=== PATIENT | male | born 1945 | race Hispanic/Latino ===

== ENCOUNTER 2017-07-19 14:08 | Inpatient (IN) | payer MEDICARE ==
[2017-07-19 15:22] LABS: BASO # 0.1 K/uL (0.0-0.2); BASO % 0.7 % (0.0-2.0); EOS # 0.1 K/uL (0.0-0.7); EOS % 1.5 % (0.0-4.0); HEMOGLOBIN 9.9 g/dL (12.0-18.0); LYMPH # 1.8 K/uL (1.0-4.3); LYMPH % 24.1 % (20.0-40.0); MEAN CELL VOLUME 103.5 fL (80.0-94.0); MEAN CORPUSCULAR HEMOGLOBIN 34.9 pg (27.0-31.0); MEAN CORPUSCULAR HGB CONC 33.7 g/dL (33.0-37.0); MEAN PLATELET VOLUME 8.7 fL (7.2-11.7); MONO # 0.5 K/uL (0.0-0.8); NEUT # 4.9 K/uL (1.8-7.0); NEUT % 66.7 % (50.0-75.0); RBC 2.82 Mil/uL (4.40-5.90); RED CELL DISTRIBUTION WIDTH 15.6 % (11.5-14.5); WHITE BLOOD COUNT 7.3 K/uL (4.8-10.8)
[2017-07-19 15:29] LABS: PROTHROMBIN TIME 11.6 SECONDS (9.7-12.2)
[2017-07-19 15:32] LABS: ALB/GLOB RATIO 1.1 (1.0-2.1); ALBUMIN 4.1 g/dL (3.5-5.0); ALT/SGPT 20 U/L (21-72); AST/SGOT 24 U/L (17-59); BLOOD UREA NITROGEN 34 mg/dL (9-20); CALCIUM 9.1 mg/dl (8.6-10.4); GFR AFRICAN-AMERICAN 45; GFR NON-AFRICAN AMERICAN 37; LIPASE 92 U/L (23-300)
[2017-07-19 15:44] LABS: B-TYPE NATRIURETIC PEPTIDE 681 pg/mL (0-900); CK-MB 0.35 ng/mL (0.0-3.38)
--- NOTE | 2017-07-19 15:48 | C.PDOC ---
History Of Present Illness 72 year old male, with PMHx of HTN, diabetes, and renal insufficiency, came to ER after positive stress test. Pt states he was trying to obtain medical clearance from his PMD for knee replacement surgery, was referred to Dr. Bowers, 3d artist, for cardiac clearance. Pt had (+) stress test and was instructed to report to ER for further evaluation. Pt complains of some leg swelling, right leg more than left. Notes that he takes his Lasix "as needed", last taken 2 days ago. Otherwise, denies chest pain, shortness of breath, fever, chills, or any other associated symptoms at this time. Time Seen by Provider: 07/19/17 14:24 Chief Complaint (Nursing): Chest Pain History Per: Patient History/Exam Limitations: no limitations Onset/Duration Of Symptoms: Days Current Symptoms Are (Timing): Still Present Quality: "Pain" Associated Symptoms: denies: Nausea, Dyspnea, Diaphoresis, Syncope Modifying Factors: None Exacerbating Factors: None Alleviating Factors: None Recent travel outside of the [place]: No Additional History Per: Patient Past Medical History Reviewed: Historical Data, Nursing Documentation, Vital Signs Vital Signs: Last Vital Signs Temp 97.4 F L 07/20/17 23:10 Pulse 66 07/20/17 23:10 Resp 20 07/20/17 23:10 BP 134/70 07/20/17 23:10 Pulse Ox 95 07/20/17 23:10 - Medical History PMH: Diabetes, HTN Surgical History: Appendectomy, Tonsillectomy Family History: States: Unknown Family Hx - Social History Hx Alcohol Use: No Hx Substance Use: No - Immunization History Hx Tetanus Toxoid Vaccination: No Hx Influenza Vaccination: Yes Hx Pneumococcal Vaccination: Yes Review Of Systems Except As Marked, All Systems Reviewed And Found Negative. Constitutional: Negative for: Fever, Chills Cardiovascular: Positive for: Edema (leg swelling). Negative for: Chest Pain, Palpitations Respiratory: Negative for: Cough, Shortness of Breath Gastrointestinal: Negative for: Nausea, Vomiting, Abdominal Pain Neurological: Negative for: Headache, Dizziness Physical Exam - Physical Exam Appears: Non-toxic, No Acute Distress, Other (obese) Skin: Normal Color, Warm, Dry Head: Atraumatic, Normacephalic Eye(s): bilateral: Normal Inspection, EOMI Nose: Normal Oral Mucosa: Moist Neck: Normal ROM, Supple Chest: Symmetrical Cardiovascular: Rhythm Regular Respiratory: Normal Breath Sounds, No Rales, No Rhonchi, No Wheezing Gastrointestinal/Abdominal: Soft, No Tenderness Extremity: Normal ROM, Pedal Edema (bilaterally), Capillary Refill (less than 2 seconds), No Deformity Neurological/Psych: Oriented x3, Normal Speech ED Course And Treatment - Laboratory Results Result Diagrams: 07/20/17 07:48 07/20/17 07:48 ECG: Interpreted By Me, Viewed By Me ECG Rhythm: Sinus Rhythm, R BBB Rate From EC (bpm) O2 Sat by Pulse Oximetry: 98 (RA) Pulse Ox Interpretation: Normal Progress Note: Blood work, EKG, CXR ordered and reviewed. Case discussed with Dr. Smith who requested to admit patient under hospitalist service. Case discussed with hospitalist nuclear radiation engineer, Dr. Cárdenas, who agrees upon plan and admission. Disposition - Disposition Disposition: HOSPITALIZED Disposition Time: 18:00 Condition: STABLE - Clinical Impression Clinical Impression: CAD (coronary artery disease), Positive cardiac stress test, Chronic kidney disease, stage III (moderate) - PA / MIRROR SILVERER / Resident Statement MD/DO has reviewed & agrees with the documentation as recorded. - Scribe Statement The provider has reviewed the documentation as recorded by the Maylinibe Rohit Dias All medical record entries made by the Maylinibangelica were at my direction and personally dictated by me. I have reviewed the chart and agree that the record accurately reflects my personal performance of the history, physical exam, medical decision making, and the department course for this patient. I have also personally directed, reviewed, and agree with the discharge instructions and disposition.
[2017-07-19] MEDS ORDERED: Glucagon Recombinant 1 mg Inj IM PRN (17:23)
[2017-07-19] MEDS ORDERED: Dextrose 50% SYRINGE Inj (50 ml) IV PRN (17:23)
[2017-07-19] MEDS ORDERED: Sodium Chloride 0.45% 1,000 ML IV SCH (17:30)
[2017-07-19] MEDS ORDERED: Metoprolol Succinate 50 mg XL Tab PO ONE (17:54)
[2017-07-19] MEDS: Metoprolol Succinate 25 mg XL Tab PO SCH (18:05)
--- NOTE | 2017-07-19 18:13 | CP.PCM.HP ---
History of Present Illness - History of Present Illness History of Present Illness: Patient is a 72 yo male with a PMHx of HTN, DM-type 2, CKD stage III follows [address] Dr Cintron, chronic right knee pain that has been debilitating and requiring surgery presents today for further evaluation of an outpatient stress test that was positive and needing cardiac cath. Patient has been having worsening right knee pain and needing surgery and thus pre-operative workup included an ekg which showed possible ischemic changes and then underwent a pharmacological stress test which was "abnormal" and thus sent to the ED for a cardiac cath. Patient denies having any history of chest pain or sob. His overall functional status has been poor for the past 1 year attributed to right knee pain. Present on Admission - Present on Admission Any Indicators Present on Admission: Yes History of DVT/PE: No - Notes: Notes:: On oral agents for his diabetes. Taken off of Metformin given his renal function Review of Systems - Cardiovascular Cardiovascular: Leg Edema - Musculoskeletal Musculoskeletal: Other (right knee pain) Past Patient History - Past Medical History & Family History Past Medical History?: Yes Pertinent Family History: HTN DM-2 CKD III obesity - Past Social History Smoking Status: Never Smoked - CARDIAC Hx Hypertension: Yes - RENAL Hx Chronic Kidney Disease: Yes (CKD III) Other/Comment: renal insufficiency - ENDOCRINE/METABOLIC Hx Diabetes Mellitus Type 2: Yes - MUSCULOSKELETAL/RHEUMATOLOGICAL Hx Osteoarthritis: Yes (Right knee osteoarthritis) - PSYCHIATRIC Hx Substance Use: No - SURGICAL HISTORY Hx Appendectomy: Yes Hx Tonsillectomy: Yes Other/Comment: Right knee arthroscopy Meds Allergies/Adverse Reactions: Allergies Allergy/AdvReac Type Severity Reaction Status Date / Time No Known Allergies Allergy Verified 07/19/17 14:32 Physical Exam - Head Exam Head Exam: ATRAUMATIC - Eye Exam Eye Exam: EOMI - ENT Exam ENT Exam: Mucous Membranes Moist - Neck Exam Neck exam: Positive for: Full Rom - Respiratory Exam Respiratory Exam: Clear to Auscultation Bilateral, NORMAL BREATHING PATTERN - Cardiovascular Exam Cardiovascular Exam: REGULAR RHYTHM, RRR, +S1, +S2 - GI/Abdominal Exam GI & Abdominal Exam: Normal Bowel Sounds, Soft. absent: Distended - Rectal Exam Rectal Exam: Deferred - Extremities Exam Extremities exam: Negative for: calf tenderness Additional comments: non-pitting edema of the b/l lower ext - Neurological Exam Neurological exam: Alert, Oriented x3 - Skin Skin Exam: Normal Color Results - Vital Signs Recent Vital Signs: Last Vital Signs Temp 98.1 F 07/19/17 14:29 Pulse 60 07/19/17 18:04 Resp 20 07/19/17 18:04 BP 126/61 07/19/17 18:04 Pulse Ox 99 07/19/17 18:04 - Labs Result Diagrams: 07/19/17 15:11 07/19/17 15:11 Labs: Laboratory Results - last 24 hr 07/19/17 07/19/17 07/19/17 15:11 15:11 15:11 WBC 7.3 RBC 2.82 L Hgb 9.9 L Hct 29.2 L MCV 103.5 H D MCH 34.9 H MCHC 33.7 RDW 15.6 H Plt Count 173 MPV 8.7 Neut % (Auto) 66.7 Lymph % (Auto) 24.1 [place] % (Auto) 7.0 Eos % (Auto) 1.5 Baso % (Auto) 0.7 Neut # (Auto) 4.9 Lymph # (Auto) 1.8 [place] # (Auto) 0.5 Eos # (Auto) 0.1 Baso # (Auto) 0.1 PT 11.6 INR 1.0 APTT 30 Sodium 139 Potassium 4.1 Chloride 104 Carbon Dioxide 21 L Anion Gap 18 BUN 34 H Creatinine 1.8 H Est GFR ( Amer) 45 Est GFR (Non-Af Amer) 37 Random Glucose 153 H Calcium 9.1 Total Bilirubin 1.2 AST 24 ALT 20 L Alkaline Phosphatase 108 Total Creatine Kinase 48 L CK-MB (Mass) 0.35 Troponin I < 0.0120 NT-Pro-B Natriuret Pep 681 Total Protein 7.7 Albumin 4.1 Globulin 3.6 Albumin/Globulin Ratio 1.1 Lipase 92 Assessment & Plan - Assessment and Plan (Free Text) Assessment: Assessment / Plan 1. Abnormal pharmacological stress test no active chest pain ekg reviewed demonstrating q waves trop negative echocardiogram NPO after breakfast 07/20 for [facility] with Dr Smith. will start gentle hydration given his renal impairment 2. Hypertension resume home medication with bblocker - Metoprolol succinate, adjust as necessary 3. DM-2 hold off on oral hypoglycemics sliding scale coverage for now; monitor accuchecks f/u on HbA1c f/u on lipid panel 4. CKD III Attributed to long standing HTN and DM sees Dr Cintron. Consult placed to Dr Mcmullen who is part of the group. 5. Anemia macrocytic type - will f/u on vitamin B12/folate monitor H&H 6. DVT ppx pre-op, encourage early ambulation
--- NOTE | 2017-07-19 18:15 | RAD ---
PROCEDURE: CHEST RADIOGRAPH, 1 VIEW HISTORY: SOB COMPARISON: Comparison is made to 06/02/2017 FINDINGS: LUNGS: No evidence of new infiltrate or consolidation in the lungs PLEURA: No pneumothorax or pleural fluid seen. CARDIOVASCULAR: Normal. OSSEOUS STRUCTURES: No significant abnormalities. VISUALIZED UPPER ABDOMEN: Normal. OTHER FINDINGS: None. IMPRESSION: No active disease.
[2017-07-19] MEDS ORDERED: Sodium Chloride 0.45% 1,000 ML IV ONE (19:24)
[2017-07-19] MEDS ORDERED: SODIUM BICARBONATE IV SCH (19:45)
[2017-07-19] MEDS ORDERED: SODIUM CHLORIDE 0.45% IV SCH (19:45)
[2017-07-19] MEDS ORDERED: Acetylcysteine 20% Inhal Soln (4ml) INH SCH (20:00)
--- NOTE | 2017-07-19 21:38 | CP.PCM.CON ---
History of Present Illness - History of Present Illness History of Present Illness: CC: Crdiac evaluation, exertional dyspnea and abnormal stess test Patient is a 72 yo male with a PMHx of HTN, DM-type 2, CKD stage [address] Cintron, chronic right knee pain that has been debilitating and requiring surgery presents today for further evaluation of an outpatient stress test that was positive and needing cardiac cath. Patient has been having worsening right knee pain and needing surgery and thus pre-operative workup included an ekg which showed possible ischemic changes and then underwent a pharmacological stress test which was "abnormal" and thus sent to the ED for a cardiac cath. Patient denies having any history of chest pain or sob. His overall functional status has been poor for the past 1 year attributed to right knee pain. Present on Admission - Present on Admission Any Indicators Present on Admission: Yes History of DVT/PE: No - Notes: Notes:: On oral agents for his diabetes. Taken off of Metformin given his renal function Review of Systems - Cardiovascular Cardiovascular: Leg Edema - Musculoskeletal Musculoskeletal: Other (right knee pain) Meds Allergies/Adverse Reactions: Allergies Allergy/AdvReac Type Severity Reaction Status Date / Time No Known Allergies Allergy Verified 07/19/17 14:32 Physical Exam - Head Exam Head Exam: ATRAUMATIC - Eye Exam Eye Exam: EOMI - ENT Exam ENT Exam: Mucous Membranes Moist - Neck Exam Neck exam: Positive for: Full Rom - Respiratory Exam Respiratory Exam: Clear to Auscultation Bilateral, NORMAL BREATHING PATTERN - Cardiovascular Exam Cardiovascular Exam: REGULAR RHYTHM, RRR, +S1, +S2 - GI/Abdominal Exam GI & Abdominal Exam: Normal Bowel Sounds, Soft. absent: Distended - Rectal Exam Rectal Exam: Deferred - Extremities Exam Extremities exam: Negative for: calf tenderness Additional comments: non-pitting edema of the b/l lower ext - Neurological Exam Neurological exam: Alert, Oriented x3 - Skin Skin Exam: Normal Color Past Patient History - Past Medical History & Family History Past Medical History?: Yes - Past Social History Smoking Status: Never Smoked - CARDIAC Hx Hypertension: Yes - RENAL Hx Chronic Kidney Disease: Yes (CKD III) Other/Comment: renal insufficiency - ENDOCRINE/METABOLIC Hx Diabetes Mellitus Type 2: Yes - MUSCULOSKELETAL/RHEUMATOLOGICAL Hx Osteoarthritis: Yes (Right knee osteoarthritis) - PSYCHIATRIC Hx Substance Use: No - SURGICAL HISTORY Hx Appendectomy: Yes Hx Tonsillectomy: Yes Other/Comment: Right knee arthroscopy Meds Allergies/Adverse Reactions: Allergies Allergy/AdvReac Type Severity Reaction Status Date / Time No Known Allergies Allergy Verified 07/19/17 14:32 - Medications Medications: Current Medications Dextrose (Dextrose 50% Inj) 0 ml IV STAT PRN; Protocol PRN Reason: Hypoglycemia Protocol Dextrose (Glutose 15) 0 gm PO ONCE PRN; Protocol PRN Reason: Hypoglycemia Protocol Furosemide (Lasix) 20 mg PO DAILY [facility] Glucagon (Glucagen Diagnostic Kit) 0 mg IM STAT PRN; Protocol PRN Reason: Hypoglycemia Protocol Hydralazine HCl (Apresoline) 50 mg PO BID [facility] Last Admin: 07/19/17 18:05 Dose: 50 mg Dextrose (Dextrose 5% In Water 1000 Ml) 1,000 mls @ 0 mls/hr IV .Q0M PRN; Protocol; Per Protocol PRN Reason: Hypoglycemia Protocol Sodium Bicarbonate 50 meq/ (Sodium Chloride) 1,050 mls @ 75 mls/hr IV .Q14H [facility] Last Admin: 07/19/17 20:00 Dose: 75 mls/hr Insulin Human Regular (Novolin R) 0 unit SC ACHS [facility] PRN Reason: Protocol Metoprolol Succinate (Toprol Xl) 25 mg PO BID [facility] Last Admin: 07/19/17 18:05 Dose: 25 mg Rosuvastatin Calcium (Crestor) 5 mg PO [facility] Results - Vital Signs Recent Vital Signs: Last Vital Signs Temp 98.1 F 07/19/17 14:29 Pulse 64 07/19/17 19:38 Resp 18 07/19/17 19:38 BP 124/54 L 07/19/17 19:38 Pulse Ox 95 07/19/17 19:38 - Labs Result Diagrams: 07/19/17 15:11 07/19/17 15:11 Labs: Laboratory Results - last 24 hr 07/19/17 07/19/17 07/19/17 15:11 15:11 15:11 WBC 7.3 RBC 2.82 L Hgb 9.9 L Hct 29.2 L MCV 103.5 H D MCH 34.9 H MCHC 33.7 RDW 15.6 H Plt Count 173 MPV 8.7 Neut % (Auto) 66.7 Lymph % (Auto) 24.1 [place] % (Auto) 7.0 Eos % (Auto) 1.5 Baso % (Auto) 0.7 Neut # (Auto) 4.9 Lymph # (Auto) 1.8 [place] # (Auto) 0.5 Eos # (Auto) 0.1 Baso # (Auto) 0.1 PT 11.6 INR 1.0 APTT 30 Sodium 139 Potassium 4.1 Chloride 104 Carbon Dioxide 21 L Anion Gap 18 BUN 34 H Creatinine 1.8 H Est GFR ( Amer) 45 Est GFR (Non-Af Amer) 37 Random Glucose 153 H Calcium 9.1 Total Bilirubin 1.2 AST 24 ALT 20 L Alkaline Phosphatase 108 Total Creatine Kinase 48 L CK-MB (Mass) 0.35 Troponin I < 0.0120 NT-Pro-B Natriuret Pep 681 Total Protein 7.7 Albumin 4.1 Globulin 3.6 Albumin/Globulin Ratio 1.1 Lipase 92 Assessment & Plan - Assessment and Plan (Free Text) Assessment: 1. Abnormal pharmacological stress test For cath tomorrow Renal eval Hydration 2. Hypertension resume home medication with bblocker - Metoprolol succinate, adjust as necessary 3. DM-2 hold off on oral hypoglycemics sliding scale coverage for now; monitor accuchecks f/u on HbA1c f/u on lipid panel 4. CKD III Attributed to long standing HTN and DM sees Dr Cintron. Consult placed to Dr Mcmullen who is part of the group. 5. Anemia macrocytic type - will f/u on vitamin B12/folate monitor H&H 6. DVT ppx pre-op, encourage early ambulation
[2017-07-19] MEDS: (Novolin R) Insulin Human Regular 100 units/ml vial SC SCH (21:50)
[2017-07-20] MEDS: (Novolin R) Insulin Human Regular 100 units/ml vial SC SCH ×4 (07:21→21:56)
[2017-07-20 07:59] LABS: BASO % 0.6 % (0.0-2.0); EOS # 0.2 K/uL (0.0-0.7); EOS % 2.6 % (0.0-4.0); HEMOGLOBIN 9.3 g/dL (12.0-18.0); LYMPH # 1.8 K/uL (1.0-4.3); MEAN CORPUSCULAR HEMOGLOBIN 34.9 pg (27.0-31.0); MEAN CORPUSCULAR HGB CONC 33.6 g/dL (33.0-37.0); MEAN PLATELET VOLUME 8.8 fL (7.2-11.7); MONO # 0.6 K/uL (0.0-0.8); MONO % 8.5 % (0.0-10.0); NEUT # 4.6 K/uL (1.8-7.0); NEUT % 63.3 % (50.0-75.0); RBC 2.65 Mil/uL (4.40-5.90); RED CELL DISTRIBUTION WIDTH 15.2 % (11.5-14.5); WHITE BLOOD COUNT 7.3 K/uL (4.8-10.8)
[2017-07-20 08:02] LABS: PROTHROMBIN TIME 11.7 SECONDS (9.7-12.2)
[2017-07-20 08:20] LABS: ALB/GLOB RATIO 1.1 (1.0-2.1); ALBUMIN 3.7 g/dL (3.5-5.0); ALT/SGPT 21 U/L (21-72); AST/SGOT 22 U/L (17-59); BLOOD UREA NITROGEN 30 mg/dL (9-20); CALCIUM 9.1 mg/dl (8.6-10.4); GFR AFRICAN-AMERICAN 52; GFR NON-AFRICAN AMERICAN 43; HDL CHOLESTEROL 24 mg/dL (30-70)
[2017-07-20 08:53] LABS: LDL CHOLESTEROL 102 mg/dL (0-129)
[2017-07-20 09:26] LABS: FOLATE > 20.0 ng/mL
--- NOTE | 2017-07-20 09:30 | CP.PCM.PN ---
Addendum entered and electronically signed by Antonio Chapman DO 07/20/17 17:59: Cath results showing triple vessel disease (full report to follow). Recommending CABG. Will have long talk with patient explaining risks/benefits vs stenting. 1/2 NS @ 70cc/hr. Continue ASA, BB, statins Original Note: <Antonio Chapman - Last Filed: 07/20/17 12:32> Subjective - Date & Time of Evaluation Date of Evaluation: 07/20/17 Time of Evaluation: 09:23 - Subjective Subjective: PGY-[address] Smith's Cardiology Service: Pt seen and examined at bedside. Nursing reports no acute events overnight. Pt NPO for cath today. Patient found resting comfortably at bedside. Denies chest pain, SOB, or palpitations. Objective - Vital Signs/Intake and Output Vital Signs (last 24 hours): Temp Pulse Resp BP Pulse Ox 97.4 F L 53 L 20 159/73 H 96 07/20/17 07:33 07/20/17 08:01 07/20/17 07:33 07/20/17 07:33 07/20/17 07:33 - Medications Medications: Current Medications Dextrose (Dextrose 50% Inj) 0 ml IV STAT PRN; Protocol PRN Reason: Hypoglycemia Protocol Dextrose (Glutose 15) 0 gm PO ONCE PRN; Protocol PRN Reason: Hypoglycemia Protocol Furosemide (Lasix) 20 mg PO DAILY [facility] Glucagon (Glucagen Diagnostic Kit) 0 mg IM STAT PRN; Protocol PRN Reason: Hypoglycemia Protocol Hydralazine HCl (Apresoline) 50 mg PO BID [facility] Last Admin: 07/19/17 18:05 Dose: 50 mg Dextrose (Dextrose 5% In Water 1000 Ml) 1,000 mls @ 0 mls/hr IV .Q0M PRN; Protocol; Per Protocol PRN Reason: Hypoglycemia Protocol Sodium Bicarbonate 50 meq/ (Sodium Chloride) 1,050 mls @ 75 mls/hr IV .Q14H [facility] Last Admin: 07/19/17 20:00 Dose: 75 mls/hr Insulin Human Regular (Novolin R) 0 unit SC ACHS [facility] PRN Reason: Protocol Last Admin: 07/20/17 07:21 Dose: Not Given Metoprolol Succinate (Toprol Xl) 25 mg PO BID [facility] Last Admin: 07/19/17 18:05 Dose: 25 mg Rosuvastatin Calcium (Crestor) 5 mg PO HS [facility] Last Admin: 07/19/17 21:47 Dose: 5 mg - Labs Labs: 07/20/17 07:48 07/20/17 07:48 PT 11.7 SECONDS (9.7-12.2) 07/20/17 07:48 INR 1.0 07/20/17 07:48 APTT 30 SECONDS (21-34) 07/20/17 07:48 - Additional Findings Additional findings: - Head Exam Head Exam: ATRAUMATIC - Eye Exam Eye Exam: EOMI - ENT Exam ENT Exam: Mucous Membranes Moist - Neck Exam Neck exam: Positive for: Full Rom - Respiratory Exam Respiratory Exam: Clear to Auscultation Bilateral, NORMAL BREATHING PATTERN - Cardiovascular Exam Cardiovascular Exam: REGULAR RHYTHM, RRR, +S1, +S2 - GI/Abdominal Exam GI & Abdominal Exam: Normal Bowel Sounds, Soft. absent: Distended -morbid obesity - Extremities Exam Extremities exam: Negative for: calf tenderness Additional comments: improving edema of the b/l lower ext - Neurological Exam Neurological exam: Alert, Oriented x3 - Skin Skin Exam: Normal Color Assessment and Plan - Assessment and Plan (Free Text) Plan: Abnormal pharmacological stress test NPO for Cath today EKG (07/19/17): Q waves Troponin negative x 1; BNP 681 TSH/Free t4 WNL f/u ECHO Will hold Lasix Dose this AM, as pt for cardiac cath with AM Cr of 1.6 Hypertension Metoprolol succinate 25mg PO BID Hydralazine 50mg PO BID Lasix 2mg PO Daily Type Two Diabetes Mellitus HbA1c 3.4 hold off on oral hypoglycemics sliding scale coverage for now; monitor accuchecks lipid panel: LDL 102, Chol 145, TG 147 Low HDL HDL 24 Start Lovaza 1gm BID CKD III Attributed to long standing HTN and DM f/u Nephro reccs DVT ppx pre-op, encourage early ambulation Antonio Chapman PGY-2 D/W Dr. Smith <Kendall Smith - Last Filed: 07/20/17 22:37> Objective - Vital Signs/Intake and Output Vital Signs (last 24 hours): Temp Pulse Resp BP Pulse Ox 98.1 F 61 20 162/80 H 96 07/20/17 20:20 07/20/17 20:20 07/20/17 20:20 07/20/17 20:20 07/20/17 20:20 Intake and Output: 07/20/17 07/21/17 18:59 06:59 Intake Total 575 250 Balance 575 250 - Medications Medications: Current Medications Dextrose (Dextrose 50% Inj) 0 ml IV STAT PRN; Protocol PRN Reason: Hypoglycemia Protocol Dextrose (Glutose 15) 0 gm PO ONCE PRN; Protocol PRN Reason: Hypoglycemia Protocol Furosemide (Lasix) 20 mg PO DAILY [facility] Last Admin: 07/20/17 10:15 Dose: Not Given Glucagon (Glucagen Diagnostic Kit) 0 mg IM STAT PRN; Protocol PRN Reason: Hypoglycemia Protocol Hydralazine HCl (Apresoline) 50 mg PO BID [facility] Last Admin: 07/20/17 21:25 Dose: 50 mg Dextrose (Dextrose 5% In Water 1000 Ml) 1,000 mls @ 0 mls/hr IV .Q0M PRN; Protocol; Per Protocol PRN Reason: Hypoglycemia Protocol Sodium Bicarbonate 50 meq/ (Sodium Chloride) 1,050 mls @ 75 mls/hr IV .Q14H [facility] Last Admin: 07/20/17 10:00 Dose: 75 mls/hr Insulin Human Regular (Novolin R) 0 unit SC ACHS [facility] PRN Reason: Protocol Last Admin: 07/20/17 21:56 Dose: Not Given Metoprolol Succinate (Toprol Xl) 25 mg PO BID [facility] Last Admin: 07/20/17 18:00 Dose: Not Given [id number] Ethyl Esters (Lovaza) 1 gm PO BID [facility] Rosuvastatin Calcium (Crestor) 5 mg PO HS [facility] Last Admin: 07/20/17 21:25 Dose: 5 mg - Labs Labs: 07/20/17 07:48 07/20/17 07:48 PT 11.7 SECONDS (9.7-12.2) 07/20/17 07:48 INR 1.0 07/20/17 07:48 APTT 30 SECONDS (21-34) 07/20/17 07:48
[2017-07-20] MEDS: Metoprolol Succinate 25 mg XL Tab PO SCH ×2 (10:15→18:00)
--- NOTE | 2017-07-20 10:37 | CP.PCM.PN ---
<Kelsey Lozano - Last Filed: 07/20/17 15:07> Subjective - Date & Time of Evaluation Date of Evaluation: 07/20/17 Time of Evaluation: 07:00 - Subjective Subjective: PGY1- progress note for Dr. De Guzman Patient seen and examined at bedside and in no acute distress. Patient has no complaints. Patient denies shortness of breath, chest pain, abdominal pain, nausea, vomiting, constipation, or diarrhea. Objective - Vital Signs/Intake and Output Vital Signs (last 24 hours): Temp Pulse Resp BP Pulse Ox 97.4 F L 53 L 20 159/73 H 96 07/20/17 07:33 07/20/17 08:01 07/20/17 07:33 07/20/17 07:33 07/20/17 07:33 - Medications Medications: Current Medications Dextrose (Dextrose 50% Inj) 0 ml IV STAT PRN; Protocol PRN Reason: Hypoglycemia Protocol Dextrose (Glutose 15) 0 gm PO ONCE PRN; Protocol PRN Reason: Hypoglycemia Protocol Furosemide (Lasix) 20 mg PO DAILY [facility] Glucagon (Glucagen Diagnostic Kit) 0 mg IM STAT PRN; Protocol PRN Reason: Hypoglycemia Protocol Hydralazine HCl (Apresoline) 50 mg PO BID [facility] Last Admin: 07/20/17 10:15 Dose: 50 mg Dextrose (Dextrose 5% In Water 1000 Ml) 1,000 mls @ 0 mls/hr IV .Q0M PRN; Protocol; Per Protocol PRN Reason: Hypoglycemia Protocol Sodium Bicarbonate 50 meq/ (Sodium Chloride) 1,050 mls @ 75 mls/hr IV .Q14H [facility] Last Admin: 07/19/17 20:00 Dose: 75 mls/hr Insulin Human Regular (Novolin R) 0 unit SC ACHS [facility] PRN Reason: Protocol Last Admin: 07/20/17 07:21 Dose: Not Given Metoprolol Succinate (Toprol Xl) 25 mg PO BID [facility] Last Admin: 07/20/17 10:15 Dose: 25 mg Rosuvastatin Calcium (Crestor) 5 mg PO HS [facility] Last Admin: 07/19/17 21:47 Dose: 5 mg - Labs Labs: 07/20/17 07:48 07/20/17 07:48 PT 11.7 SECONDS (9.7-12.2) 07/20/17 07:48 INR 1.0 07/20/17 07:48 APTT 30 SECONDS (21-34) 07/20/17 07:48 - Constitutional Appears: Non-toxic, No Acute Distress, Other (obese) - Head Exam Head Exam: ATRAUMATIC, NORMAL INSPECTION, NORMOCEPHALIC - Eye Exam Eye Exam: EOMI, Normal appearance - ENT Exam ENT Exam: Mucous Membranes Moist - Neck Exam Neck Exam: absent: Lymphadenopathy - Respiratory Exam Respiratory Exam: Clear to Ausculation Bilateral, NORMAL BREATHING PATTERN. absent: Rales, Rhonchi, Wheezes, Respiratory Distress, Stridor - Cardiovascular Exam Cardiovascular Exam: REGULAR RHYTHM, RRR, +S1, +S2 - GI/Abdominal Exam GI & Abdominal Exam: Soft, Normal Bowel Sounds. absent: Distended, Tenderness - Extremities Exam Extremities Exam: Full ROM, Normal Inspection. absent: Tenderness - Neurological Exam Neurological Exam: Alert, Awake, Oriented x3 - Psychiatric Exam Psychiatric exam: Normal Affect, Normal Mood - Skin Skin Exam: Intact, Normal Color, Warm Assessment and Plan - Assessment and Plan (Free Text) Assessment: 1. Abnormal pharmacological stress test no active chest pain ekg reviewed demonstrating q waves trop negative echocardiogram cardiac cath today with with Dr Smith. 2. Hypertension resume home medication: Metoprolol succinate 25mg po BID Hydralazine 50mg po BID 3. DM-2 hold oral hypoglycemics sliding scale coverage for now; monitor accuchecks HbA1c: 3.4 lipid panel: Triglycerides-147, Cholesterol-145, LDL-102, HDL-24 TSH and free T4 WNL 4. CKD III Attributed to long standing HTN and DM sees Dr Cintron. Consult placed to Dr Mcmullen who is part of the group. 5. Anemia macrocytic type vit [id number] Folate > 20 monitor H&H 6. Prophylaxis patient on Eliquis, contraindication for SCDs due to CHF Pepcid 20mg po daily <Victor M De Guzman - Last Filed: 07/20/17 15:20> Objective - Vital Signs/Intake and Output Vital Signs (last 24 hours): Temp Pulse Resp BP Pulse Ox 97.4 F L 57 L 20 159/73 H 96 07/20/17 07:33 07/20/17 12:00 07/20/17 07:33 07/20/17 07:33 07/20/17 07:33 - Medications Medications: Current Medications Dextrose (Dextrose 50% Inj) 0 ml IV STAT PRN; Protocol PRN Reason: Hypoglycemia Protocol Dextrose (Glutose 15) 0 gm PO ONCE PRN; Protocol PRN Reason: Hypoglycemia Protocol Furosemide (Lasix) 20 mg PO DAILY [facility] Glucagon (Glucagen Diagnostic Kit) 0 mg IM STAT PRN; Protocol PRN Reason: Hypoglycemia Protocol Hydralazine HCl (Apresoline) 50 mg PO BID [facility] Last Admin: 07/20/17 10:15 Dose: 50 mg Dextrose (Dextrose 5% In Water 1000 Ml) 1,000 mls @ 0 mls/hr IV .Q0M PRN; Protocol; Per Protocol PRN Reason: Hypoglycemia Protocol Sodium Bicarbonate 50 meq/ (Sodium Chloride) 1,050 mls @ 75 mls/hr IV .Q14H [facility] Last Admin: 07/19/17 20:00 Dose: 75 mls/hr Insulin Human Regular (Novolin R) 0 unit SC ACHS [facility] PRN Reason: Protocol Last Admin: 07/20/17 12:09 Dose: Not Given Metoprolol Succinate (Toprol Xl) 25 mg PO BID [facility] Last Admin: 07/20/17 10:15 Dose: 25 mg [id number] Ethyl Esters (Lovaza) 1 gm PO BID [facility] Rosuvastatin Calcium (Crestor) 5 mg PO HS [facility] Last Admin: 07/19/17 21:47 Dose: 5 mg - Labs Labs: 07/20/17 07:48 07/20/17 07:48 PT 11.7 SECONDS (9.7-12.2) 07/20/17 07:48 INR 1.0 07/20/17 07:48 APTT 30 SECONDS (21-34) 07/20/17 07:48 Attending/Attestation - Attestation I have personally seen and examined this patient.: Yes I have fully participated in the care of the patient.: Yes I have reviewed all pertinent clinical information, including history, physical exam and plan: Yes Notes (Text): 07/20/17 15:20 Medical attending: Patient was seen and examined by me, agrees the above note by the medical technologist hematology. The patient had a family member present in the room, the patient was okay with this. As mentioned previously he underwent a nuclear stress test with his personal pole lift operator Dr. Otero which revealed an abnormal stress test. He was therefore sent in today to have cardiac catheterization done. Patient does have CKD, creatine had decreased to 1.6 today. Yesterday he had IVF as well as Acetylceystien prior to cardiac cath He is getting these testing done in preparation for the hopes to have he right knee replacement at some point. When we saw him he had just underwent the echo, he was pending the cardiac cath. He reported that overall he felt normal at rest. He denied having any chest pain. thank you Victor M De Guzman
--- NOTE | 2017-07-20 13:43 | CP.PCM.CON ---
History of Present Illness - History of Present Illness History of Present Illness: Patient is a 72 yo male with a PMHx of HTN, DM-type 2, CKD stage III follows [address] Dr Cintron, chronic right knee pain that has been debilitating and requiring surgery- replacement; presents for further evaluation of an outpatient stress test that was positive and needing cardiac cath. Patient has been having worsening right knee pain and needing surgery and thus pre- operative workup included an ekg which showed possible ischemic changes and then underwent a pharmacological stress test which was "abnormal" and thus sent to the ED for a cardiac cath. Patient denies having any history of chest pain or sob. His overall functional status has been poor for the past 1 year attributed to right knee pain. PSH: AP TONSILLECTOMY RIGHT KNEE ARTHROSCOPY Review of Systems - Constitutional Constitutional: Weight Gain, Weakness - EENT Eyes: absent: As Per HPI, Blind Spots, Blurred Vision, Change in Vision, Decreased Night Vision, Diplopia, Discharge, Dry Eye, Exophthalmos, Floaters, Irritation, Itchy Eyes, Loss of Peripheral Vision, Pain, Photophobia, Requires Corrective Lenses, Sees Flashes, Spots in Vision, Tunnel Vision, Other Visual Disturbances, Loss of Vision, Other Ears: absent: As Per HPI, Decreased Hearing, Ear Discharge, Ear Pain, Tinnitus, Abnormal Hearing, Disequilibrium, Dizziness, Other Nose/Mouth/Throat: absent: As Per HPI, Epistaxis, Nasal Congestion, Nasal Discharge, Nasal Obstruction, Nasal Trauma, Nose Pain, Post Nasal Drip, Sinus Pain, Sinus Pressure, Bleeding Gums, Change in Voice, Dental Pain, Dry Mouth, Dysphagia, Halitosis, Hoarsness, Lip Swelling, Mouth Lesions, Mouth Pain, Odynophagia, Sore Throat, Throat Swelling, Tongue Swelling, Facial Pain, Neck Pain, Neck Mass, Other - Cardiovascular Cardiovascular: Dyspnea on Exertion, Edema - Respiratory Respiratory: Cough, Dyspnea on Exertion - Gastrointestinal Gastrointestinal: absent: As Per HPI, Abdominal Pain, Belching, Bloating, Change in Bowel Habits, Change in Stool Character, Coffee Ground Emesis, Constipation, Cramping, Diarrhea, Dyspepsia, Dysphagia, Early Satiety, Excessive Flatus, Fecal Incontinence, Heartburn, Hematemesis, Hematochezia, Loose Stools, Melena, Nausea, Odynophagia, Temesmus, Vomiting, Other - Genitourinary Genitourinary: Urinary Frequency - Musculoskeletal Musculoskeletal: Arthralgias, Muscle Cramps, Muscle Weakness, Myalgias - Integumentary Integumentary: absent: As Per HPI, Acne, Alopecia, Bleeding Lesions, Change in Hair, Change in Nails, Change in Pigmentation, Changing Lesions, Dry Skin, Erythema, Furuncle, Hirsutism, Lesions, New Lesions, Non-Healing Lesions, Photosensitivity, Pruritus, Rash, Skin Pain, Skin Ulcer, Sores, Striae, Swelling , Unusual Bruising, Wounds, Jaundice, Other - Neurological Neurological: absent: As Per HPI, Abnormal Gait, Abnormal Hearing, Abnormal Movements, Abnormal Speech, Behavioral Changes, Burning Sensations, Confusion, Convulsions, Disequilibrium, Dizziness, Numbness, Focal Weakness, Frequent Falls , Headaches, Lack of Coordination, Loss of Vision, Memory Loss, Paresthesias, Radicular Pain, Restless Legs, Sensory Deficit, Syncope, Tingling, Tremor, Vertigo, Weakness, Other Visual Disturbances, Other Past Patient History - Past Medical History & Family History Past Medical History?: Yes Past Family History: Reviewed and not pertinent - Past Social History Smoking Status: Former Smoker Chewing Tobacco Use: No Cigar Use: No Alcohol: None Drugs: Denies Home Situation {Lives}: With Family - CARDIAC Hx Cardiac Disorders: Yes Hx Hypertension: Yes - PULMONARY Hx Respiratory Disorders: No - NEUROLOGICAL Hx Neurological Disorder: No - HEENT Hx HEENT Problems: No - RENAL Hx Chronic Kidney Disease: Yes (CKD III) Other/Comment: renal insufficiency - ENDOCRINE/METABOLIC Hx Endocrine Disorders: Yes Hx Diabetes Mellitus Type 2: Yes - HEMATOLOGICAL/ONCOLOGICAL Hx Blood Disorders: No - INTEGUMENTARY Hx Dermatological Problems: No - MUSCULOSKELETAL/RHEUMATOLOGICAL Hx Musculoskeletal Disorders: Yes Hx Falls: No Hx Unsteady Gait: Yes (Cane) - GASTROINTESTINAL Hx Gastrointestinal Disorders: No - GENITOURINARY/GYNECOLOGICAL Hx Genitourinary Disorders: No - PSYCHIATRIC Hx Psychophysiologic Disorder: No Hx Substance Use: No - SURGICAL HISTORY Hx Surgeries: Yes Hx Appendectomy: Yes Hx Tonsillectomy: Yes Other/Comment: Right knee arthroscopy - ANESTHESIA Hx Anesthesia: Yes Hx Anesthesia Reactions: No Hx Malignant Hyperthermia: No Has any member of the family had a problem w/ anesthesia?: No Meds Allergies/Adverse Reactions: Allergies Allergy/AdvReac Type Severity Reaction Status Date / Time No Known Allergies Allergy Verified 07/19/17 14:32 - Medications Medications: Current Medications Dextrose (Dextrose 50% Inj) 0 ml IV STAT PRN; Protocol PRN Reason: Hypoglycemia Protocol Dextrose (Glutose 15) 0 gm PO ONCE PRN; Protocol PRN Reason: Hypoglycemia Protocol Furosemide (Lasix) 20 mg PO DAILY [facility] Glucagon (Glucagen Diagnostic Kit) 0 mg IM STAT PRN; Protocol PRN Reason: Hypoglycemia Protocol Hydralazine HCl (Apresoline) 50 mg PO BID [facility] Last Admin: 07/20/17 10:15 Dose: 50 mg Dextrose (Dextrose 5% In Water 1000 Ml) 1,000 mls @ 0 mls/hr IV .Q0M PRN; Protocol; Per Protocol PRN Reason: Hypoglycemia Protocol Sodium Bicarbonate 50 meq/ (Sodium Chloride) 1,050 mls @ 75 mls/hr IV .Q14H [facility] Last Admin: 07/19/17 20:00 Dose: 75 mls/hr Insulin Human Regular (Novolin R) 0 unit SC ACHS [facility] PRN Reason: Protocol Last Admin: 07/20/17 12:09 Dose: Not Given Metoprolol Succinate (Toprol Xl) 25 mg PO BID [facility] Last Admin: 07/20/17 10:15 Dose: 25 mg [id number]-[id number] Ethyl Esters (Lovaza) 1 gm PO BID [facility] Rosuvastatin Calcium (Crestor) 5 mg PO HS [facility] Last Admin: 07/19/17 21:47 Dose: 5 mg Physical Exam - Constitutional Appears: No Acute Distress, Chronically Ill - Head Exam Head Exam: ATRAUMATIC, NORMAL INSPECTION - Eye Exam Eye Exam: EOMI, Normal appearance - Neck Exam Neck exam: Positive for: Normal Inspection. Negative for: Tenderness - Respiratory Exam Respiratory Exam: Clear to Auscultation Bilateral, NORMAL BREATHING PATTERN - Cardiovascular Exam Cardiovascular Exam: REGULAR RHYTHM, +S1 - GI/Abdominal Exam GI & Abdominal Exam: Soft. absent: Tenderness - Extremities Exam Extremities exam: Positive for: pedal edema. Negative for: tenderness - Neurological Exam Neurological exam: Altered, CN II-XII Intact - Skin Skin Exam: Dry, Warm Results - Vital Signs Recent Vital Signs: Last Vital Signs Temp 97.4 F L 07/20/17 07:33 Pulse 53 L 07/20/17 08:01 Resp 20 07/20/17 07:33 BP 159/73 H 07/20/17 07:33 Pulse Ox 96 07/20/17 07:33 - Labs Result Diagrams: 07/20/17 07:48 07/20/17 07:48 Labs: Laboratory Results - last 24 hr 07/19/17 07/19/17 07/19/17 15:11 15:11 15:11 WBC 7.3 RBC 2.82 L Hgb 9.9 L Hct 29.2 L MCV 103.5 H D MCH 34.9 H MCHC 33.7 RDW 15.6 H Plt Count 173 MPV 8.7 Neut % (Auto) 66.7 Lymph % (Auto) 24.1 [place] % (Auto) 7.0 Eos % (Auto) 1.5 Baso % (Auto) 0.7 Neut # (Auto) 4.9 Lymph # (Auto) 1.8 [place] # (Auto) 0.5 Eos # (Auto) 0.1 Baso # (Auto) 0.1 PT 11.6 INR 1.0 APTT 30 Sodium 139 Potassium 4.1 Chloride 104 Carbon Dioxide 21 L Anion Gap 18 BUN 34 H Creatinine 1.8 H Est GFR ( Amer) 45 Est GFR (Non-Af Amer) 37 POC Glucose (mg/dL) Random Glucose 153 H Hemoglobin A1c Calcium 9.1 Phosphorus Magnesium Total Bilirubin 1.2 AST 24 ALT 20 L Alkaline Phosphatase 108 Total Creatine Kinase 48 L CK-MB (Mass) 0.35 Troponin I < 0.0120 NT-Pro-B Natriuret Pep 681 Total Protein 7.7 Albumin 4.1 Globulin 3.6 Albumin/Globulin Ratio 1.1 Triglycerides Cholesterol LDL Cholesterol Direct HDL Cholesterol Lipase 92 Vitamin B12 Folate Free T4 TSH 3rd Generation 07/19/17 07/20/17 07/20/17 21:49 06:04 07:48 WBC 7.3 RBC 2.65 L Hgb 9.3 L Hct 27.6 L MCV 104.0 H MCH 34.9 H MCHC 33.6 RDW 15.2 H Plt Count 155 MPV 8.8 Neut % (Auto) 63.3 Lymph % (Auto) 25.0 [place] % (Auto) 8.5 Eos % (Auto) 2.6 Baso % (Auto) 0.6 Neut # (Auto) 4.6 Lymph # (Auto) 1.8 [place] # (Auto) 0.6 Eos # (Auto) 0.2 Baso # (Auto) 0.0 PT INR APTT Sodium Potassium Chloride Carbon Dioxide Anion Gap BUN Creatinine Est GFR ( Amer) Est GFR (Non-Af Amer) POC Glucose (mg/dL) 134 H 130 H Random Glucose Hemoglobin A1c Calcium Phosphorus Magnesium Total Bilirubin AST ALT Alkaline Phosphatase Total Creatine Kinase CK-MB (Mass) Troponin I NT-Pro-B Natriuret Pep Total Protein Albumin Globulin Albumin/Globulin Ratio Triglycerides Cholesterol LDL Cholesterol Direct HDL Cholesterol Lipase Vitamin B12 Folate Free T4 TSH 3rd Generation 07/20/17 07/20/17 07/20/17 07:48 07:48 07:48 WBC RBC Hgb Hct MCV MCH MCHC RDW Plt Count MPV Neut % (Auto) Lymph % (Auto) [place] % (Auto) Eos % (Auto) Baso % (Auto) Neut # (Auto) Lymph # (Auto) [place] # (Auto) Eos # (Auto) Baso # (Auto) PT 11.7 INR 1.0 APTT 30 Sodium 145 Potassium 4.2 Chloride 107 Carbon Dioxide 24 Anion Gap 17 BUN 30 H Creatinine 1.6 H Est GFR ( Amer) 52 Est GFR (Non-Af Amer) 43 POC Glucose (mg/dL) Random Glucose 113 H Hemoglobin A1c 3.4 L D Calcium 9.1 Phosphorus 3.9 Magnesium 2.3 Total Bilirubin 1.2 AST 22 ALT 21 Alkaline Phosphatase 102 Total Creatine Kinase CK-MB (Mass) Troponin I NT-Pro-B Natriuret Pep Total Protein 7.0 Albumin 3.7 Globulin 3.3 Albumin/Globulin Ratio 1.1 Triglycerides 147 D Cholesterol 145 LDL Cholesterol Direct 102 HDL Cholesterol 24 L Lipase Vitamin B12 340 Folate > 20.0 Free T4 TSH 3rd Generation 2.82 07/20/17 07/20/17 07:48 11:13 WBC RBC Hgb Hct MCV MCH MCHC RDW Plt Count MPV Neut % (Auto) Lymph % (Auto) [place] % (Auto) Eos % (Auto) Baso % (Auto) Neut # (Auto) Lymph # (Auto) [place] # (Auto) Eos # (Auto) Baso # (Auto) PT INR APTT Sodium Potassium Chloride Carbon Dioxide Anion Gap BUN Creatinine Est GFR ( Amer) Est GFR (Non-Af Amer) POC Glucose (mg/dL) 143 H Random Glucose Hemoglobin A1c Calcium Phosphorus Magnesium Total Bilirubin AST ALT Alkaline Phosphatase Total Creatine Kinase CK-MB (Mass) Troponin I NT-Pro-B Natriuret Pep Total Protein Albumin Globulin Albumin/Globulin Ratio Triglycerides Cholesterol LDL Cholesterol Direct HDL Cholesterol Lipase Vitamin B12 Folate Free T4 0.85 TSH 3rd Generation Assessment & Plan (1) Chronic kidney disease, stage III (moderate) Status: Acute (2) Essential (primary) hypertension Status: Acute (3) DM type 2 (diabetes mellitus, type 2) Status: Acute (4) Osteoarthritis of right knee Status: Acute (5) CAD (coronary artery disease) Status: Acute - Assessment and Plan (Free Text) Plan: Agree with IV fluids prior to cath cardiac cath today stable for cath as creatinine has improved with IV fluids
[2017-07-20] MEDS ORDERED: Midazolam 2 MG/2 ML VIAL ONE (15:44)
[2017-07-20] MEDS ORDERED: Iodixanol 320 MG/ML 200 ML BOTTLE IV ONE (15:47)
[2017-07-20] MEDS ORDERED: Nitroglycerin 50mg in D5W 50 MG/250 ML BOTTLE IV ONE (16:16)
[2017-07-20] MEDS ORDERED: Verapamil 2 ML ONE (16:16)
--- NOTE | 2017-07-21 00:14 | CARD ---
APPROVED REPORT EXAM: Two-dimensional and M-mode echocardiogram with Doppler and color Doppler. Other Information Quality : GoodRhythm : INDICATION Pre-Op CHRONIC KIDNEY DISEASE RISK FACTORS Hypertension Obesity Diabetes 2D DIMENSIONS IVSd1.0 (0.7-1.1cm)LVDd5.0 (3.9-5.9cm) PWd1.0 (0.7-1.1cm)LVDs3.6 (2.5-4.0cm) FS (%) 28.2 %LVEF (%)54.4 (>50%) M-Mode DIMENSIONS Left Atrium (MM)3.44 (2.5-4.0cm)Aortic Root3.81 (2.2-3.7cm) Aortic Cusp Exc.2.05 (1.5-2.0cm) Mitral Valve MV E Bmejmkxk55.3cm/sMV A Ggkbgxlk26.7cm/sE/A ratio1.3 TDI E/Lateral E'0.0E/Medial E'0.0 Tricuspid Valve TR Peak [id number]/sTR Peak Gr.34mmHg LEFT VENTRICLE The left ventricle is normal size. There is borderline concentric left ventricular hypertrophy. Left ventricle systolic function is normal. The Ejection Fraction is 60-65%. There is normal LV segmental wall motion. Transmitral Doppler flow pattern is Grade I-abnormal relaxation pattern. There is no ventricular septal defect visualized. RIGHT VENTRICLE The right ventricle is normal size. The right ventricular systolic function is normal. ATRIA The left atrium is mildly dilated. The right atrium size is normal. AORTIC VALVE The aortic valve is mildly sclerotic. The aortic valve is tri-cuspid. No aortic regurgitation is present. There is no aortic valvular stenosis. MITRAL VALVE The mitral valve is normal in structure. There is no evidence of mitral valve prolapse. Mitral regurgitation is trace. TRICUSPID VALVE The tricuspid valve is normal in structure. There is trace tricuspid regurgitation. There is no pulmonary hypertension. PULMONIC VALVE The pulmonic valve is not well visualized. There is no pulmonic valvular regurgitation. GREAT VESSELS The aortic root is normal in size. The ascending aorta is Mildly dilated. 4.4 cm The IVC is dilated. PERICARDIAL EFFUSION There is no pericardial effusion. <Conclusion> There is borderline concentric left ventricular hypertrophy. Left ventricle systolic function is normal. The Ejection Fraction is 60-65%. Transmitral Doppler flow pattern is Grade I-abnormal relaxation pattern. Mitral regurgitation is trace. The ascending aorta is Mildly dilated. 4.4 cm
--- NOTE | 2017-07-21 00:53 | CARDCATH ---
PROCEDURE DATE: PROCEDURES: 1. Left heart catheterization. 2. Coronary angiogram. CLINICAL INDICATIONS: 1. Exertional chest pain. 2. Abnormal stress test. 3. Diabetes. 4. Hypertension. 5. Hyperlipidemia. 6. Chronic kidney disease. REFERRING PHYSICIAN: Esperanza Bowers MD PERFORMING PHYSICIAN: Kendall Smith MD PROCEDURE: After informed consent, the patient was prepped and draped in the usual sterile fashion. A 2% lidocaine was given in the right wrist for local anesthesia. Using micropuncture technique, 6-Wallisian sheath was introduced into the right radial artery. A JR4 6-Wallisian diagnostic catheter crossed into the left ventricle across the aortic valve. LV end-diastolic pressure was measured. LV angiogram was not done because of chronic kidney disease. Catheter was pulled back across the aortic valve and gradient across the aortic valve was measured. Then, the same catheter was engaged into the right coronary artery. Contrast injected and right coronary angiogram was done. A JL4 6-Wallisian diagnostic catheter was engaged into the left main coronary artery. Contrast was injected and left coronary angiogram was done. The patient tolerated the procedure well. Post procedure, Terumo radial band applied to right wrist with excellent hemostasis. FINDINGS: 1. Left main coronary artery is patent. 2. Proximal and distal LAD is patent, however, mid LAD has 80% to 90% hazy lesion. Diagonal branches are patent. 3. Proximal left circumflex has 70% eccentric stenosis. Large obtuse marginal 1 branch has 90% ostial stenosis. Obtuse marginal 2 branch has 80% ostial stenosis. 4. Right coronary artery is a dominant artery. However, mid right coronary artery has 100% occlusion. There are [id number] collaterals. 5. LV ejection fraction is approximately 55% by echocardiogram. LVEDP with cardiac cath is 18. No gradient across the aortic valve. IMPRESSION: 1. Severe triple-vessel disease. 2. Diabetes. 3. Hypertension. 4. Hyperlipidemia. 5. Chronic kidney disease. Given the diabetes and triple-vessel disease, recommend coronary artery bypass grafting surgery. Kendall Smith MD
--- NOTE | 2017-07-21 01:56 | CARD ---
APPROVED REPORT EKG Measurement Heart [id number] <Conclusion> Normal sinus rhythm Right bundle branch block Abnormal ECG
[2017-07-21] MEDS: (Novolin R) Insulin Human Regular 100 units/ml vial SC SCH ×4 (07:44→21:27)
[2017-07-21 08:03] LABS: BASO % 0.5 % (0.0-2.0); EOS # 0.1 K/uL (0.0-0.7); EOS % 1.9 % (0.0-4.0); HEMOGLOBIN 9.2 g/dL (12.0-18.0); LYMPH # 2.1 K/uL (1.0-4.3); LYMPH % 26.3 % (20.0-40.0); MEAN CELL VOLUME 104.2 fL (80.0-94.0); MEAN CORPUSCULAR HEMOGLOBIN 34.8 pg (27.0-31.0); MEAN CORPUSCULAR HGB CONC 33.4 g/dL (33.0-37.0); MEAN PLATELET VOLUME 8.9 fL (7.2-11.7); MONO # 0.7 K/uL (0.0-0.8); NEUT # 4.9 K/uL (1.8-7.0); NEUT % 62.3 % (50.0-75.0); RBC 2.65 Mil/uL (4.40-5.90); RED CELL DISTRIBUTION WIDTH 15.1 % (11.5-14.5); WHITE BLOOD COUNT 7.8 K/uL (4.8-10.8)
[2017-07-21 08:23] LABS: ALB/GLOB RATIO 1.1 (1.0-2.1); ALBUMIN 3.6 g/dL (3.5-5.0); CALCIUM 8.7 mg/dl (8.6-10.4)
[2017-07-21] MEDS: Omega-3-Acid Ethyl Esters 1 GM Cap PO SCH ×2 (09:25→17:28)
[2017-07-21] MEDS: Metoprolol Succinate 25 mg XL Tab PO SCH ×2 (09:25→17:28)
--- NOTE | 2017-07-21 10:33 | CP.PCM.PN ---
<Kelsey Lozano - Last Filed: 07/21/17 16:29> Subjective - Date & Time of Evaluation Date of Evaluation: 07/21/17 Time of Evaluation: 07:00 - Subjective Subjective: PGY1- Medicine Note for Dr. De Guzman Patient seen and examined at bedside and in no acute distress. Patient is very anxious and worried about the result of his cardiac cath. Patient feels very overwhelmed. Patient admits to some chest and generalized abdominal pain, but can't say if it is due to the stress. He rates the pain 5/10. Patient says he is so anxious that even a slight pain in his finger makes him think he is having a heart attack. Patient's right wrist where the access was for the cath has no pain. Patient denies any numbness or tingling in the hand. He denies any nausea or vomiting. Patient says he is constipated, but would like to try prune juice for it as that is what he usually does for it at home. Objective - Vital Signs/Intake and Output Vital Signs (last 24 hours): Temp Pulse Resp BP Pulse Ox 97.4 F L 59 L 21 178/88 H 96 07/21/17 07:40 07/21/17 08:02 07/21/17 07:40 07/21/17 07:40 07/21/17 07:40 Intake and Output: 07/21/17 07/21/17 06:59 18:59 Intake Total 850 Balance 850 - Medications Medications: Current Medications Alprazolam (Xanax) 0.5 mg PO TID PRN PRN Reason: Anxiety Dextrose (Dextrose 50% Inj) 0 ml IV STAT PRN; Protocol PRN Reason: Hypoglycemia Protocol Dextrose (Glutose 15) 0 gm PO ONCE PRN; Protocol PRN Reason: Hypoglycemia Protocol Furosemide (Lasix) 20 mg PO DAILY [facility] Last Admin: 07/20/17 10:15 Dose: Not Given Glucagon (Glucagen Diagnostic Kit) 0 mg IM STAT PRN; Protocol PRN Reason: Hypoglycemia Protocol Hydralazine HCl (Apresoline) 50 mg PO BID [facility] Last Admin: 07/21/17 09:25 Dose: 50 mg Dextrose (Dextrose 5% In Water 1000 Ml) 1,000 mls @ 0 mls/hr IV .Q0M PRN; Protocol; Per Protocol PRN Reason: Hypoglycemia Protocol Sodium Bicarbonate 50 meq/ (Sodium Chloride) 1,050 mls @ 75 mls/hr IV .Q14H [facility] Last Admin: 07/20/17 10:00 Dose: 75 mls/hr Insulin Human Regular (Novolin R) 0 unit SC ACHS [facility] PRN Reason: Protocol Last Admin: 07/21/17 07:44 Dose: Not Given Metoprolol Succinate (Toprol Xl) 25 mg PO BID [facility] Last Admin: 07/21/17 09:25 Dose: 25 mg Yjryk-9-Tdde Ethyl Esters (Lovaza) 1 gm PO BID [facility] Last Admin: 07/21/17 09:25 Dose: 1 gm Rosuvastatin Calcium (Crestor) 5 mg PO HS [facility] Last Admin: 07/20/17 21:25 Dose: 5 mg - Labs Labs: 07/21/17 07:53 07/21/17 07:53 PT 11.7 SECONDS (9.7-12.2) 07/20/17 07:48 INR 1.0 07/20/17 07:48 APTT 30 SECONDS (21-34) 07/20/17 07:48 - Additional Findings Additional findings: - Constitutional Appears: Non-toxic, No Acute Distress, Other (obese) - Head Exam Head Exam: ATRAUMATIC, NORMAL INSPECTION, NORMOCEPHALIC - Eye Exam Eye Exam: EOMI, Normal appearance - ENT Exam ENT Exam: Mucous Membranes Moist - Neck Exam Neck Exam: absent: Lymphadenopathy - Respiratory Exam Respiratory Exam: Clear to Ausculation Bilateral, NORMAL BREATHING PATTERN. absent: Rales, Rhonchi, Wheezes, Respiratory Distress, Stridor - Cardiovascular Exam Cardiovascular Exam: REGULAR RHYTHM, RRR, +S1, +S2 - GI/Abdominal Exam GI & Abdominal Exam: Soft, Normal Bowel Sounds. absent: Distended, Tenderness - Extremities Exam Extremities Exam: Full ROM, Normal Inspection. absent: Tenderness right wrist cath site with c/d/i dressing, full strength - Neurological Exam Neurological Exam: Alert, Awake, Oriented x3 - Psychiatric Exam Psychiatric exam: Normal Affect, Normal Mood - Skin Skin Exam: Intact, Normal Color, Warm Assessment and Plan - Assessment and Plan (Free Text) Assessment: 1. Abnormal pharmacological stress test no active chest pain ekg reviewed demonstrating q waves trop negative echocardiogram cardiac cath (07/20): mid LAD has 80-90% hazy lesion, proximal L circumflex 70% stenosis, large obtuse marginal 1 90% stenosis, obtuse marginal 2 80% stenosis, mid right coronary 100% occlusion LVEF 55% Dr. Smith recommends CABG 2. Hypertension resume home medication: Metoprolol succinate 25mg po BID Hydralazine 50mg po TID (increased on 07/21/17) 3. DM-2 hold oral hypoglycemics sliding scale coverage for now; monitor accuchecks HbA1c: 3.4 lipid panel: Triglycerides-147, Cholesterol-145, LDL-102, HDL-24 TSH and free T4 WNL 4. CKD III Attributed to long standing HTN and DM sees Dr Cintron. Consult placed to Dr Mcmullen who is part of the group. IVF d/c on 07/21/17 cxray negative 5. Anemia macrocytic type vit b12-340 Folate > 20 monitor H&H 6. Prophylaxis patient on Eliquis, contraindication for SCDs due to CHF Pepcid 20mg po daily <Victor M De Guzman H - Last Filed: 07/21/17 16:49> Objective - Vital Signs/Intake and Output Vital Signs (last 24 hours): Temp Pulse Resp BP Pulse Ox 99.2 F 62 20 124/67 97 07/21/17 15:40 07/21/17 15:40 07/21/17 15:40 07/21/17 15:40 07/21/17 15:40 Intake and Output: 07/21/17 07/21/17 06:59 18:59 Intake Total 850 775 Balance 850 775 - Medications Medications: Current Medications Alprazolam (Xanax) 0.5 mg PO TID PRN PRN Reason: Anxiety Dextrose (Dextrose 50% Inj) 0 ml IV STAT PRN; Protocol PRN Reason: Hypoglycemia Protocol Dextrose (Glutose 15) 0 gm PO ONCE PRN; Protocol PRN Reason: Hypoglycemia Protocol Furosemide (Lasix) 20 mg PO DAILY [facility] Last Admin: 07/20/17 10:15 Dose: Not Given Glucagon (Glucagen Diagnostic Kit) 0 mg IM STAT PRN; Protocol PRN Reason: Hypoglycemia Protocol Hydralazine HCl (Apresoline) 50 mg PO TID [facility] Last Admin: 07/21/17 13:37 Dose: 50 mg Dextrose (Dextrose 5% In Water 1000 Ml) 1,000 mls @ 0 mls/hr IV .Q0M PRN; Protocol; Per Protocol PRN Reason: Hypoglycemia Protocol Insulin Human Regular (Novolin R) 0 unit SC ACHS [facility] PRN Reason: Protocol Last Admin: 07/21/17 12:45 Dose: Not Given Metoprolol Succinate (Toprol Xl) 25 mg PO BID [facility] Last Admin: 07/21/17 09:25 Dose: 25 mg Lwkdc-1-Wvkf Ethyl Esters (Lovaza) 1 gm PO BID [facility] Last Admin: 07/21/17 09:25 Dose: 1 gm Rosuvastatin Calcium (Crestor) 5 mg PO HS [facility] Last Admin: 07/20/17 21:25 Dose: 5 mg - Labs Labs: 07/21/17 07:53 07/21/17 07:53 PT 11.7 SECONDS (9.7-12.2) 07/20/17 07:48 INR 1.0 07/20/17 07:48 APTT 30 SECONDS (21-34) 07/20/17 07:48 Attending/Attestation - Attestation I have personally seen and examined this patient.: Yes I have fully participated in the care of the patient.: Yes I have reviewed all pertinent clinical information, including history, physical exam and plan: Yes Notes (Text): Medical attending: Patient was seen and examined by me. Agree with the above note by the resident The patient was not in any acute distress - however he was really stressed out and anxious about the results of the cardiac catherization. Per cardiology patient will need a CABG surgery. We also spoke with the patient's son as well over speaker phone as well. For now we also added on PRN xanax as he was very anxious. Also IVF have been DC'd by nephrology. thank you Victor M De Guzman 07/21/17 16:48
--- NOTE | 2017-07-21 12:13 | VASCLAB ---
PROCEDURE: Lower Extremity Venous Duplex Exam. HISTORY: Leg swelling PRIORS: None. TECHNIQUE: Bilateral common femoral, femoral, popliteal and posterior tibial, peroneal and great saphenous veins were evaluated. Flow was assessed with color Doppler, compressibility, assessment of phasic flow and augmentation response. Report prepared by UVALDO Logan, RVT FINDINGS: RIGHT: 1. Common Femoral Vein: 1.1. Compressibility - Fully compressible: Thrombus - None : Flow - Phasic: Augmentation -Normal: Reflux - None. 2. Femoral Vein: 2.1. Compressibility - Fully compressible: Thrombus - None : Flow - Phasic: Augmentation -Normal: Reflux - None. 3. Popliteal Vein: 3.1. Compressibility - Fully compressible: Thrombus - None : Flow - Phasic: Augmentation -Normal: Reflux - None. 4. Posterior Tibial Vein: 4.1. Compressibility - Fully compressible: Thrombus - None: Flow - Phasic: Augmentation -Normal: Reflux - None. 5. Peroneal Vein: 5.1. Compressibility - Fully compressible: Thrombus - None: Flow - Phasic: Augmentation -Normal: Reflux - None. 6. Great Saphenous Vein: 6.1. Compressibility - Fully compressible: Thrombus - None: Flow - Phasic: Augmentation - Normal: Reflux - None. LEFT: 1. Common Femoral Vein: 1.1. Compressibility - Fully compressible: Thrombus - None: Flow - Phasic: Augmentation -Normal: Reflux - None. 2. Femoral Vein: 2.1. Compressibility - Fully compressible: Thrombus - None: Flow - Phasic: Augmentation -Normal: Reflux - None. 3. Popliteal Vein: 3.1. Compressibility - Fully compressible: Thrombus - None : Flow - Phasic: Augmentation -Normal: Reflux - None. 4. Posterior Tibial Vein: 4.1. Compressibility - Fully compressible: Thrombus - None: Flow - Phasic: Augmentation -Normal: Reflux - None. 5. Peroneal Vein: 5.1. Compressibility - Fully compressible: Thrombus - None: Flow - Phasic: Augmentation -Normal: Reflux - None. 6. Great Saphenous Vein: 6.1. Compressibility - Fully compressible: Thrombus - None: Flow - Phasic: Augmentation - Normal: Reflux - None. OTHER FINDINGS: Right: None significant. Left: None significant. IMPRESSION: Right: No evidence of deep or superficial vein thrombosis of the right lower extremity. Normal valve function noted of the right side. Left: No evidence of deep or superficial vein thrombosis of the left lower extremity. Normal valve function noted of the left side.
--- NOTE | 2017-07-21 12:44 | CP.PCM.PN ---
Subjective - Date & Time of Evaluation Date of Evaluation: 07/21/17 Time of Evaluation: 12:43 - Subjective Subjective: seen and examined s/p cardiac cath, report noted, multivessel obstructive dz pt denies any cp sob dizziness n/v/d/fevers chills off diuretic at this time. on metolazone / bumex at home Objective - Vital Signs/Intake and Output Vital Signs (last 24 hours): Temp Pulse Resp BP Pulse Ox 97.4 F L 59 L 21 178/88 H 96 07/21/17 07:40 07/21/17 08:02 07/21/17 07:40 07/21/17 07:40 07/21/17 07:40 Intake and Output: 07/21/17 07/21/17 06:59 18:59 Intake Total 850 Balance 850 - Medications Medications: Current Medications Alprazolam (Xanax) 0.5 mg PO TID PRN PRN Reason: Anxiety Dextrose (Dextrose 50% Inj) 0 ml IV STAT PRN; Protocol PRN Reason: Hypoglycemia Protocol Dextrose (Glutose 15) 0 gm PO ONCE PRN; Protocol PRN Reason: Hypoglycemia Protocol Furosemide (Lasix) 20 mg PO DAILY [facility] Last Admin: 07/20/17 10:15 Dose: Not Given Glucagon (Glucagen Diagnostic Kit) 0 mg IM STAT PRN; Protocol PRN Reason: Hypoglycemia Protocol Hydralazine HCl (Apresoline) 50 mg PO BID [facility] Last Admin: 07/21/17 09:25 Dose: 50 mg Dextrose (Dextrose 5% In Water 1000 Ml) 1,000 mls @ 0 mls/hr IV .Q0M PRN; Protocol; Per Protocol PRN Reason: Hypoglycemia Protocol Insulin Human Regular (Novolin R) 0 unit SC ACHS [facility] PRN Reason: Protocol Last Admin: 07/21/17 07:44 Dose: Not Given Metoprolol Succinate (Toprol Xl) 25 mg PO BID [facility] Last Admin: 07/21/17 09:25 Dose: 25 mg Oilsv-6-Lqpu Ethyl Esters (Lovaza) 1 gm PO BID [facility] Last Admin: 07/21/17 09:25 Dose: 1 gm Rosuvastatin Calcium (Crestor) 5 mg PO HS [facility] Last Admin: 07/20/17 21:25 Dose: 5 mg - Labs Labs: 07/21/17 07:53 07/21/17 07:53 PT 11.7 SECONDS (9.7-12.2) 07/20/17 07:48 INR 1.0 07/20/17 07:48 APTT 30 SECONDS (21-34) 07/20/17 07:48 - Constitutional Appears: No Acute Distress, Chronically Ill (obese) - Head Exam Head Exam: NORMAL INSPECTION, NORMOCEPHALIC - Eye Exam Eye Exam: Normal appearance, PERRL - ENT Exam ENT Exam: Mucous Membranes Moist, Normal Exam - Neck Exam Neck Exam: Full ROM, Normal Inspection - Respiratory Exam Respiratory Exam: Decreased Breath Sounds, NORMAL BREATHING PATTERN - Cardiovascular Exam Cardiovascular Exam: REGULAR RHYTHM, RRR - GI/Abdominal Exam GI & Abdominal Exam: Distended, Soft - Extremities Exam Extremities Exam: Normal Inspection, Pedal Edema (1+) - Neurological Exam Neurological Exam: Alert, Awake, Oriented x3 - Psychiatric Exam Psychiatric exam: Normal Affect, Normal Mood - Skin Skin Exam: Dry, Normal Color, Warm Assessment and Plan (1) CAD (coronary artery disease) Status: Acute (2) Chronic kidney disease, stage III (moderate) Status: Acute (3) DM type 2 (diabetes mellitus, type 2) Status: Acute (4) Essential (primary) hypertension Status: Acute - Assessment and Plan (Free Text) Assessment: dc iv fluids daily chems increase hydralazine to tid dosing
--- NOTE | 2017-07-21 13:21 | RAD ---
HISTORY: shortness of breath COMPARISON: 07/19/2017. FINDINGS: LUNGS: No active pulmonary disease. PLEURA: No significant pleural effusion identified, no pneumothorax apparent. CARDIOVASCULAR: Cardiomegaly. No evidence of acute, significant cardiovascular disease. OSSEOUS STRUCTURES: No significant abnormalities. VISUALIZED UPPER ABDOMEN: Normal. OTHER FINDINGS: None. IMPRESSION: No active disease. No significant interval change compared to the prior examination(s).
[2017-07-21] MEDS ORDERED: Aspirin 325 mg EC Tablets PO STA (17:11)
--- NOTE | 2017-07-21 23:25 | CP.PCM.PN ---
Subjective - Date & Time of Evaluation Date of Evaluation: 07/21/17 Time of Evaluation: 16:10 - Subjective Subjective: Patient seen and evaluated Denies chest pain and dyspnea For transfer to [place] for CABG Objective - Vital Signs/Intake and Output Vital Signs (last 24 hours): Temp Pulse Resp BP Pulse Ox 99.2 F 63 20 124/67 97 07/21/17 15:40 07/21/17 23:00 07/21/17 15:40 07/21/17 15:40 07/21/17 15:40 Intake and Output: 07/21/17 07/22/17 18:59 06:59 Intake Total 775 Balance 775 - Medications Medications: Current Medications Alprazolam (Xanax) 0.5 mg PO TID PRN PRN Reason: Anxiety Aspirin (Aspirin) 325 mg PO DAILY [facility] Dextrose (Dextrose 50% Inj) 0 ml IV STAT PRN; Protocol PRN Reason: Hypoglycemia Protocol Dextrose (Glutose 15) 0 gm PO ONCE PRN; Protocol PRN Reason: Hypoglycemia Protocol Furosemide (Lasix) 20 mg PO DAILY [facility] Last Admin: 07/20/17 10:15 Dose: Not Given Glucagon (Glucagen Diagnostic Kit) 0 mg IM STAT PRN; Protocol PRN Reason: Hypoglycemia Protocol Hydralazine HCl (Apresoline) 50 mg PO TID [facility] Last Admin: 07/21/17 17:28 Dose: 50 mg Dextrose (Dextrose 5% In Water 1000 Ml) 1,000 mls @ 0 mls/hr IV .Q0M PRN; Protocol; Per Protocol PRN Reason: Hypoglycemia Protocol Insulin Human Regular (Novolin R) 0 unit SC [facility] PRN Reason: Protocol Last Admin: 07/21/17 21:27 Dose: Not Given Metoprolol Succinate (Toprol Xl) 25 mg PO BID [facility] Last Admin: 07/21/17 17:28 Dose: Not Given Qxink-0-Jqdr Ethyl Esters (Lovaza) 1 gm PO BID [facility] Last Admin: 07/21/17 17:28 Dose: 1 gm Rosuvastatin Calcium (Crestor) 20 mg PO HS [facility] Last Admin: 07/21/17 22:06 Dose: 20 mg - Labs Labs: 07/21/17 07:53 07/21/17 07:53 PT 11.7 SECONDS (9.7-12.2) 07/20/17 07:48 INR 1.0 07/20/17 07:48 APTT 30 SECONDS (21-34) 07/20/17 07:48
[2017-07-22 07:34] LABS: BASO % 0.7 % (0.0-2.0); EOS # 0.1 K/uL (0.0-0.7); HEMOGLOBIN 9.2 g/dL (12.0-18.0); LYMPH # 1.8 K/uL (1.0-4.3); LYMPH % 27.5 % (20.0-40.0); MEAN CELL VOLUME 104.2 fL (80.0-94.0); MEAN CORPUSCULAR HEMOGLOBIN 35.1 pg (27.0-31.0); MEAN CORPUSCULAR HGB CONC 33.7 g/dL (33.0-37.0); MONO # 0.5 K/uL (0.0-0.8); MONO % 8.1 % (0.0-10.0); NEUT % 61.7 % (50.0-75.0); RBC 2.63 Mil/uL (4.40-5.90); RED CELL DISTRIBUTION WIDTH 14.8 % (11.5-14.5); WHITE BLOOD COUNT 6.5 K/uL (4.8-10.8)
[2017-07-22 07:49] LABS: ALB/GLOB RATIO 1.1 (1.0-2.1); ALBUMIN 3.6 g/dL (3.5-5.0); CALCIUM 8.9 mg/dl (8.6-10.4)
[2017-07-22] MEDS: (Novolin R) Insulin Human Regular 100 units/ml vial SC SCH ×4 (08:00→21:32)
[2017-07-22] MEDS: Omega-3-Acid Ethyl Esters 1 GM Cap PO SCH ×2 (09:28→21:32)
[2017-07-22] MEDS: Metoprolol Succinate 25 mg XL Tab PO SCH ×2 (09:28→17:30)
--- NOTE | 2017-07-22 09:47 | CP.PCM.PN ---
<Kelsey Lozano - Last Filed: 07/22/17 09:43> Subjective - Date & Time of Evaluation Date of Evaluation: 07/22/17 Time of Evaluation: 07:00 - Subjective Subjective: PGY1- Medicine Note for Dr. De Guzman Patient seen and examined at bedside and in no acute distress. Patient in better spirits today. Patient has no complaints and denies shortness of breath, chest pain, abdominal pain, nausea, vomiting, constipation and diarrhea. Patient to be transferred to [place] tomorrow for CABG. Objective - Vital Signs/Intake and Output Vital Signs (last 24 hours): Temp Pulse Resp BP Pulse Ox 98.0 F 61 18 138/66 96 07/22/17 08:18 07/22/17 08:18 07/22/17 08:18 07/22/17 08:18 07/22/17 08:18 - Medications Medications: Current Medications Alprazolam (Xanax) 0.5 mg PO TID PRN PRN Reason: Anxiety Aspirin (Aspirin) 325 mg PO DAILY [facility] Last Admin: 07/22/17 09:28 Dose: 325 mg Dextrose (Dextrose 50% Inj) 0 ml IV STAT PRN; Protocol PRN Reason: Hypoglycemia Protocol Dextrose (Glutose 15) 0 gm PO ONCE PRN; Protocol PRN Reason: Hypoglycemia Protocol Furosemide (Lasix) 20 mg PO DAILY [facility] Last Admin: 07/20/17 10:15 Dose: Not Given Glucagon (Glucagen Diagnostic Kit) 0 mg IM STAT PRN; Protocol PRN Reason: Hypoglycemia Protocol Hydralazine HCl (Apresoline) 50 mg PO TID [facility] Last Admin: 07/22/17 09:28 Dose: 50 mg Dextrose (Dextrose 5% In Water 1000 Ml) 1,000 mls @ 0 mls/hr IV .Q0M PRN; Protocol; Per Protocol PRN Reason: Hypoglycemia Protocol Insulin Human Regular (Novolin R) 0 unit SC [facility] PRN Reason: Protocol Last Admin: 07/22/17 08:00 Dose: Not Given Metoprolol Succinate (Toprol Xl) 25 mg PO BID [facility] Last Admin: 07/22/17 09:28 Dose: 25 mg Lylgc-1-Dvww Ethyl Esters (Lovaza) 1 gm PO BID [facility] Last Admin: 07/22/17 09:28 Dose: 1 gm Rosuvastatin Calcium (Crestor) 20 mg PO [facility] Last Admin: 07/21/17 22:06 Dose: 20 mg - Labs Labs: 07/22/17 07:25 07/22/17 07:25 PT 11.7 SECONDS (9.7-12.2) 07/20/17 07:48 INR 1.0 07/20/17 07:48 APTT 30 SECONDS (21-34) 07/20/17 07:48 - Additional Findings Additional findings: - Constitutional Appears: Non-toxic, No Acute Distress, Other (obese) - Head Exam Head Exam: ATRAUMATIC, NORMAL INSPECTION, NORMOCEPHALIC - Eye Exam Eye Exam: EOMI, Normal appearance - ENT Exam ENT Exam: Mucous Membranes Moist - Neck Exam Neck Exam: absent: Lymphadenopathy - Respiratory Exam Respiratory Exam: Clear to Ausculation Bilateral, NORMAL BREATHING PATTERN. absent: Rales, Rhonchi, Wheezes, Respiratory Distress, Stridor - Cardiovascular Exam Cardiovascular Exam: REGULAR RHYTHM, RRR, +S1, +S2 - GI/Abdominal Exam GI & Abdominal Exam: Soft, Normal Bowel Sounds. absent: Distended, Tenderness - Extremities Exam Extremities Exam: Full ROM, b/l LE edema. absent: Tenderness right wrist cath site with c/d/i dressing, full strength stable nonpitting lower extremity edema - Neurological Exam Neurological Exam: Alert, Awake, Oriented x3 - Psychiatric Exam Psychiatric exam: Normal Affect, Normal Mood - Skin Skin Exam: Intact, Normal Color, Warm Assessment and Plan - Assessment and Plan (Free Text) Assessment: 1. Abnormal pharmacological stress test no active chest pain ekg reviewed demonstrating q waves trop negative echocardiogram cardiac cath (07/20): mid LAD has 80-90% hazy lesion, proximal L circumflex 70% stenosis, large obtuse marginal 1 90% stenosis, obtuse marginal 2 80% stenosis, mid right coronary 100% occlusion LVEF 55% Dr. Smith recommends CABG-- patient to be transferred to [place] 2. Hypertension resume home medication: Metoprolol succinate 25mg po BID Hydralazine 50mg po TID (increased on 07/21/17) 3. DM-2 hold oral hypoglycemics sliding scale coverage for now; monitor accuchecks HbA1c: 3.4 lipid panel: Triglycerides-147, Cholesterol-145, LDL-102, HDL-24 TSH and free T4 WNL 4. CKD III Attributed to long standing HTN and DM sees Dr Cintron. Consult placed to Dr Mcmullen who is part of the group. IVF d/c on 07/21/17 cxray negative 5. Anemia macrocytic type vit b12-340 Folate > 20 monitor H&H 6. Prophylaxis patient on Eliquis, contraindication for SCDs due to CHF Pepcid 20mg po daily Dispo: Patient to be transferred to [place] pending bed availability for CABG. discussed with Dr. De Guzman <Victor M De Guzman H - Last Filed: 07/22/17 13:02> Objective - Vital Signs/Intake and Output Vital Signs (last 24 hours): Temp Pulse Resp BP Pulse Ox 98.0 F 61 18 138/66 96 07/22/17 08:18 07/22/17 08:18 07/22/17 08:18 07/22/17 08:18 07/22/17 08:18 - Medications Medications: Current Medications Alprazolam (Xanax) 0.5 mg PO TID PRN PRN Reason: Anxiety Aspirin (Aspirin) 325 mg PO DAILY [facility] Last Admin: 07/22/17 09:28 Dose: 325 mg Dextrose (Dextrose 50% Inj) 0 ml IV STAT PRN; Protocol PRN Reason: Hypoglycemia Protocol Dextrose (Glutose 15) 0 gm PO ONCE PRN; Protocol PRN Reason: Hypoglycemia Protocol Furosemide (Lasix) 20 mg PO DAILY [facility] Last Admin: 07/20/17 10:15 Dose: Not Given Glucagon (Glucagen Diagnostic Kit) 0 mg IM STAT PRN; Protocol PRN Reason: Hypoglycemia Protocol Hydralazine HCl (Apresoline) 50 mg PO TID [facility] Last Admin: 07/22/17 09:28 Dose: 50 mg Dextrose (Dextrose 5% In Water 1000 Ml) 1,000 mls @ 0 mls/hr IV .Q0M PRN; Protocol; Per Protocol PRN Reason: Hypoglycemia Protocol Insulin Human Regular (Novolin R) 0 unit SC ACHS [facility] PRN Reason: Protocol Last Admin: 07/22/17 08:00 Dose: Not Given Metoprolol Succinate (Toprol Xl) 25 mg PO BID [facility] Last Admin: 07/22/17 09:28 Dose: 25 mg Fmerv-7-Myli Ethyl Esters (Lovaza) 1 gm PO BID [facility] Last Admin: 07/22/17 09:28 Dose: 1 gm Rosuvastatin Calcium (Crestor) 20 mg PO HS [facility] Last Admin: 07/21/17 22:06 Dose: 20 mg - Labs Labs: 07/22/17 07:25 07/22/17 07:25 PT 11.7 SECONDS (9.7-12.2) 07/20/17 07:48 INR 1.0 07/20/17 07:48 APTT 30 SECONDS (21-34) 07/20/17 07:48 Attending/Attestation - Attestation I have personally seen and examined this patient.: Yes I have fully participated in the care of the patient.: Yes I have reviewed all pertinent clinical information, including history, physical exam and plan: Yes Notes (Text): 07/22/17 12:59 Medical attending: Patient was seen and examined by me. Agree with the above note by the resident The patient was at bed. He reported he had an uneventful - however sleepless night. He did not want to take xanax He has not tried moving far due to ongoing knee pain. At this time we are pending patient moving over to [facility] for further intervention thank you Victor M De Guzman
--- NOTE | 2017-07-22 09:47 | CP.PCM.PN ---
<Antonio Chapman - Last Filed: 07/22/17 09:45> Subjective - Date & Time of Evaluation Date of Evaluation: 07/22/17 Time of Evaluation: 09:45 - Subjective Subjective: PGY-[address] Smith's service: Pt seen and examined at bedside. Nursing reports no acute events overnight. He denies chest pain, shortness of breath at rest or exertion. He says his anxiety is well-controlled at the moment. He is aware of transfer to [place] tomorrow for CABG. Objective - Vital Signs/Intake and Output Vital Signs (last 24 hours): Temp Pulse Resp BP Pulse Ox 98.0 F 61 18 138/66 96 07/22/17 08:18 07/22/17 08:18 07/22/17 08:18 07/22/17 08:18 07/22/17 08:18 - Medications Medications: Current Medications Alprazolam (Xanax) 0.5 mg PO TID PRN PRN Reason: Anxiety Aspirin (Aspirin) 325 mg PO DAILY [facility] Last Admin: 07/22/17 09:28 Dose: 325 mg Dextrose (Dextrose 50% Inj) 0 ml IV STAT PRN; Protocol PRN Reason: Hypoglycemia Protocol Dextrose (Glutose 15) 0 gm PO ONCE PRN; Protocol PRN Reason: Hypoglycemia Protocol Furosemide (Lasix) 20 mg PO DAILY [facility] Last Admin: 07/20/17 10:15 Dose: Not Given Glucagon (Glucagen Diagnostic Kit) 0 mg IM STAT PRN; Protocol PRN Reason: Hypoglycemia Protocol Hydralazine HCl (Apresoline) 50 mg PO TID [facility] Last Admin: 07/22/17 09:28 Dose: 50 mg Dextrose (Dextrose 5% In Water 1000 Ml) 1,000 mls @ 0 mls/hr IV .Q0M PRN; Protocol; Per Protocol PRN Reason: Hypoglycemia Protocol Insulin Human Regular (Novolin R) 0 unit SC ACHS [facility] PRN Reason: Protocol Last Admin: 07/22/17 08:00 Dose: Not Given Metoprolol Succinate (Toprol Xl) 25 mg PO BID [facility] Last Admin: 07/22/17 09:28 Dose: 25 mg [id number] Ethyl Esters (Lovaza) 1 gm PO BID [facility] Last Admin: 07/22/17 09:28 Dose: 1 gm Rosuvastatin Calcium (Crestor) 20 mg PO [facility] Last Admin: 07/21/17 22:06 Dose: 20 mg - Labs Labs: 07/22/17 07:25 07/22/17 07:25 PT 11.7 SECONDS (9.7-12.2) 07/20/17 07:48 INR 1.0 07/20/17 07:48 APTT 30 SECONDS (21-34) 07/20/17 07:48 - Additional Findings Additional findings: - Constitutional Appears: Non-toxic, No Acute Distress, Other (obese) - Head Exam Head Exam: ATRAUMATIC, NORMAL INSPECTION, NORMOCEPHALIC - Eye Exam Eye Exam: EOMI, Normal appearance - ENT Exam ENT Exam: Mucous Membranes Moist - Neck Exam Neck Exam: absent: Lymphadenopathy - Respiratory Exam Respiratory Exam: Clear to Ausculation Bilateral, NORMAL BREATHING PATTERN. absent: Rales, Rhonchi, Wheezes, Respiratory Distress, Stridor - Cardiovascular Exam Cardiovascular Exam: REGULAR RHYTHM, RRR, +S1, +S2 - GI/Abdominal Exam GI & Abdominal Exam: Soft, Normal Bowel Sounds. absent: Distended, Tenderness - Extremities Exam Extremities Exam: Full ROM, Normal Inspection. absent: Tenderness right wrist cath site with c/d/i dressing, full strength - Neurological Exam Neurological Exam: Alert, Awake, Oriented x3 - Psychiatric Exam Psychiatric exam: Normal Affect, Normal Mood - Skin Skin Exam: Intact, Normal Color, Warm Assessment and Plan - Assessment and Plan (Free Text) Plan: Abnormal pharmacological stress test NPO for Cath today EKG (07/19/17): Q waves Troponin negative x 1; BNP 681 TSH/Free t4 WNL ECHO (07/22/17): EF 60-65%, Normal LV segmental wall motion. Grade I relaxation pattern. No VSD. Ascending aorta mildly dilated ~ 4.4 cm Hypertension Metoprolol succinate 25mg PO BID Hydralazine 50mg PO TID Lasix 20mg PO Daily Type Two Diabetes Mellitus HbA1c 3.4 sliding scale coverage for now; monitor accuchecks lipid panel: LDL 102, Chol 145, TG 147 Metoprolol succinate 25mg PO BID Crestor 20mg PO HS Low HDL HDL 24 Lovaza 1gm BID CKD III Attributed to long standing HTN and DM DVT ppx pre-op, encourage early ambulation Disposition: Pt for transfer to [place] for CABG tomorrow, 07/23/17. Antonio Chapman PGY-2 D/W Dr. Smith <Kendall Smith - Last Filed: 07/22/17 21:50> Objective - Vital Signs/Intake and Output Vital Signs (last 24 hours): Temp Pulse Resp BP Pulse Ox 97.5 F L 60 20 149/70 94 L 07/22/17 15:42 07/22/17 16:05 07/22/17 15:42 07/22/17 15:42 07/22/17 15:42 - Medications Medications: Current Medications Alprazolam (Xanax) 0.5 mg PO TID PRN PRN Reason: Anxiety Aspirin (Aspirin) 325 mg PO DAILY [facility] Last Admin: 07/22/17 09:28 Dose: 325 mg Dextrose (Dextrose 50% Inj) 0 ml IV STAT PRN; Protocol PRN Reason: Hypoglycemia Protocol Dextrose (Glutose 15) 0 gm PO ONCE PRN; Protocol PRN Reason: Hypoglycemia Protocol Furosemide (Lasix) 20 mg PO DAILY [facility] Last Admin: 07/20/17 10:15 Dose: Not Given Glucagon (Glucagen Diagnostic Kit) 0 mg IM STAT PRN; Protocol PRN Reason: Hypoglycemia Protocol Hydralazine HCl (Apresoline) 50 mg PO TID [facility] Last Admin: 07/22/17 17:30 Dose: 50 mg Dextrose (Dextrose 5% In Water 1000 Ml) 1,000 mls @ 0 mls/hr IV .Q0M PRN; Protocol; Per Protocol PRN Reason: Hypoglycemia Protocol Insulin Human Regular (Novolin R) 0 unit SC ACHS [facility] PRN Reason: Protocol Last Admin: 07/22/17 21:32 Dose: Not Given Metoprolol Succinate (Toprol Xl) 25 mg PO BID [facility] Last Admin: 07/22/17 17:30 Dose: 25 mg Xfmvh-7-[id number] Ethyl Esters (Lovaza) 1 gm PO BID [facility] Last Admin: 07/22/17 21:32 Dose: 1 gm Rosuvastatin Calcium (Crestor) 20 mg PO HS [facility] Last Admin: 07/22/17 21:32 Dose: 20 mg - Labs Labs: 07/22/17 07:25 07/22/17 07:25 PT 11.7 SECONDS (9.7-12.2) 07/20/17 07:48 INR 1.0 07/20/17 07:48 APTT 30 SECONDS (21-34) 07/20/17 07:48 Assessment and Plan - Assessment and Plan (Free Text) Plan: Patient seen and evaluated personally by me Plan of care d/w the medical supervisor and as documented
[2017-07-22 15:43] VITALS: RESP 20
--- NOTE | 2017-07-22 16:24 | CP.PCM.PN ---
Subjective - Date & Time of Evaluation Date of Evaluation: 07/22/17 Time of Evaluation: 16:22 - Subjective Subjective: for transfer to [facility] no chest pain no sob notes increasing edema in legs no fever or chills no n/v/diarrha good u/o no abdominal pain no palpitations no increased thirst no headache no sinus tenderness Objective - Vital Signs/Intake and Output Vital Signs (last 24 hours): Temp Pulse Resp BP Pulse Ox 97.5 F L 63 20 149/70 94 L 07/22/17 15:42 07/22/17 15:42 07/22/17 15:42 07/22/17 15:42 07/22/17 15:42 - Medications Medications: Current Medications Alprazolam (Xanax) 0.5 mg PO TID PRN PRN Reason: Anxiety Aspirin (Aspirin) 325 mg PO DAILY [facility] Last Admin: 07/22/17 09:28 Dose: 325 mg Dextrose (Dextrose 50% Inj) 0 ml IV STAT PRN; Protocol PRN Reason: Hypoglycemia Protocol Dextrose (Glutose 15) 0 gm PO ONCE PRN; Protocol PRN Reason: Hypoglycemia Protocol Furosemide (Lasix) 20 mg PO DAILY [facility] Last Admin: 07/20/17 10:15 Dose: Not Given Glucagon (Glucagen Diagnostic Kit) 0 mg IM STAT PRN; Protocol PRN Reason: Hypoglycemia Protocol Hydralazine HCl (Apresoline) 50 mg PO TID [facility] Last Admin: 07/22/17 14:06 Dose: 50 mg Dextrose (Dextrose 5% In Water 1000 Ml) 1,000 mls @ 0 mls/hr IV .Q0M PRN; Protocol; Per Protocol PRN Reason: Hypoglycemia Protocol Insulin Human Regular (Novolin R) 0 unit SC ACHS [facility] PRN Reason: Protocol Last Admin: 07/22/17 12:30 Dose: Not Given Metoprolol Succinate (Toprol Xl) 25 mg PO BID [facility] Last Admin: 07/22/17 09:28 Dose: 25 mg Tqurb-3-Vvfs Ethyl Esters (Lovaza) 1 gm PO BID [facility] Last Admin: 07/22/17 09:28 Dose: 1 gm Rosuvastatin Calcium (Crestor) 20 mg PO HS [facility] Last Admin: 07/21/17 22:06 Dose: 20 mg - Labs Labs: 07/22/17 07:25 07/22/17 07:25 PT 11.7 SECONDS (9.7-12.2) 07/20/17 07:48 INR 1.0 07/20/17 07:48 APTT 30 SECONDS (21-34) 07/20/17 07:48 - Constitutional Appears: Non-toxic, No Acute Distress - Head Exam Head Exam: ATRAUMATIC, NORMAL INSPECTION - Eye Exam Eye Exam: EOMI, Normal appearance - ENT Exam ENT Exam: Mucous Membranes Moist - Neck Exam Neck Exam: Full ROM. absent: Lymphadenopathy - Respiratory Exam Respiratory Exam: Decreased Breath Sounds. absent: Accessory Muscle Use - Cardiovascular Exam Cardiovascular Exam: REGULAR RHYTHM. absent: Rubs - Extremities Exam Extremities Exam: Pedal Edema - Neurological Exam Neurological Exam: Alert, Awake Assessment and Plan - Assessment and Plan (Free Text) Assessment: fluid retention critical cad, for cabg ckd 3, sensitive to diuretics fluid restrict and daily weights
[2017-07-23] MEDS: (Novolin R) Insulin Human Regular 100 units/ml vial SC SCH (07:35)
[2017-07-23 07:52] LABS: BASO # 0.1 K/uL (0.0-0.2); BASO % 0.8 % (0.0-2.0); EOS # 0.2 K/uL (0.0-0.7); EOS % 2.5 % (0.0-4.0); HEMOGLOBIN 9.7 g/dL (12.0-18.0); LYMPH # 1.7 K/uL (1.0-4.3); LYMPH % 22.8 % (20.0-40.0); MEAN CELL VOLUME 102.7 fL (80.0-94.0); MEAN CORPUSCULAR HEMOGLOBIN 34.4 pg (27.0-31.0); MEAN CORPUSCULAR HGB CONC 33.5 g/dL (33.0-37.0); MEAN PLATELET VOLUME 8.9 fL (7.2-11.7); MONO # 0.6 K/uL (0.0-0.8); MONO % 8.4 % (0.0-10.0); NEUT % 65.5 % (50.0-75.0); RBC 2.83 Mil/uL (4.40-5.90); WHITE BLOOD COUNT 7.6 K/uL (4.8-10.8)
[2017-07-23 08:09] VITALS: BP 141/77; TEMP 97.7; O2SAT 97
[2017-07-23 08:13] LABS: ALB/GLOB RATIO 1.1 (1.0-2.1); ALBUMIN 3.9 g/dL (3.5-5.0)
[2017-07-23 08:48] VITALS: PULSE 67
[2017-07-23] MEDS: Metoprolol Succinate 25 mg XL Tab PO SCH (09:07)
[2017-07-23] MEDS: Omega-3-Acid Ethyl Esters 1 GM Cap PO SCH (09:08)
--- NOTE | 2017-07-23 13:36 | CP.PCM.DIS ---
Provider - Provider Date of Admission: 07/19/17 16:35 Attending physician: Victor M De Guzman DO Consults: Dr. Mcmullen (nephro) Dr. Smith (cardio) Time Spent in preparation of Discharge (in minutes): 40 Diagnosis - Discharge Diagnosis (1) Multiple vessel coronary artery disease Status: Acute Priority: High Comment: Patient transferred to [place] for CABG (2) Chronic kidney disease, stage III (moderate) Status: Chronic (3) DM type 2 (diabetes mellitus, type 2) Status: Chronic (4) Essential (primary) hypertension Status: Chronic (5) Osteoarthritis of right knee Status: Chronic Hospital Course - Lab Results Lab Results: Most Recent Lab Values WBC 7.6 K/uL (4.8-10.8) 07/23/17 07:45 RBC 2.83 Mil/uL (4.40-5.90) L 07/23/17 07:45 Hgb 9.7 g/dL (12.0-18.0) L 07/23/17 07:45 Hct 29.1 % (35.0-51.0) L 07/23/17 07:45 MCV 102.7 fL (80.0-94.0) H 07/23/17 07:45 MCH 34.4 pg (27.0-31.0) H 07/23/17 07:45 MCHC 33.5 g/dL (33.0-37.0) 07/23/17 07:45 RDW 15.0 % (11.5-14.5) H 07/23/17 07:45 Plt Count 142 K/uL (130-400) 07/23/17 07:45 MPV 8.9 fL (7.2-11.7) 07/23/17 07:45 Neut % (Auto) 65.5 % (50.0-75.0) 07/23/17 07:45 Lymph % (Auto) 22.8 % (20.0-40.0) 07/23/17 07:45 [place] % (Auto) 8.4 % (0.0-10.0) 07/23/17 07:45 Eos % (Auto) 2.5 % (0.0-4.0) 07/23/17 07:45 Baso % (Auto) 0.8 % (0.0-2.0) 07/23/17 07:45 Neut # (Auto) 5.0 K/uL (1.8-7.0) 07/23/17 07:45 Lymph # (Auto) 1.7 K/uL (1.0-4.3) 07/23/17 07:45 [place] # (Auto) 0.6 K/uL (0.0-0.8) 07/23/17 07:45 Eos # (Auto) 0.2 K/uL (0.0-0.7) 07/23/17 07:45 Baso # (Auto) 0.1 K/uL (0.0-0.2) 07/23/17 07:45 PT 11.7 SECONDS (9.7-12.2) 07/20/17 07:48 INR 1.0 07/20/17 07:48 APTT 30 SECONDS (21-34) 07/20/17 07:48 Sodium 143 mmol/L (132-148) 07/23/17 07:45 Potassium 4.4 mmol/L (3.6-5.2) 07/23/17 07:45 Chloride 108 mmol/L (98-107) H 07/23/17 07:45 Carbon Dioxide 23 mmol/L (22-30) 07/23/17 07:45 Anion Gap 16 (10-20) 07/23/17 07:45 BUN 22 mg/dL (9-20) H 07/23/17 07:45 Creatinine 1.6 mg/dL (0.8-1.5) H 07/23/17 07:45 Est GFR ( Amer) 52 07/23/17 07:45 Est GFR (Non-Af Amer) 43 07/23/17 07:45 POC Glucose (mg/dL) 116 mg/dL (65-110) H 07/23/17 06:08 Random Glucose 126 mg/dL (75-110) H 07/23/17 07:45 Hemoglobin A1c 3.4 % (4.2-6.5) L D 07/20/17 07:48 Calcium 9.0 mg/dl (8.6-10.4) 07/23/17 07:45 Phosphorus 4.1 mg/dL (2.5-4.5) 07/23/17 07:45 Magnesium 2.2 mg/dL (1.6-2.3) 07/23/17 07:45 Total Bilirubin 1.1 mg/dL (0.2-1.3) 07/23/17 07:45 AST 26 U/L (17-59) 07/23/17 07:45 ALT 22 U/L (21-72) 07/23/17 07:45 Alkaline Phosphatase 107 U/L (38-126) 07/23/17 07:45 Total Creatine Kinase 48 U/L (55-170) L 07/19/17 15:11 CK-MB (Mass) 0.35 ng/mL (0.0-3.38) 07/19/17 15:11 Troponin I < 0.0120 ng/mL (0.00-0.120) 07/19/17 15:11 NT-Pro-B Natriuret Pep 681 pg/mL (0-900) 07/19/17 15:11 Total Protein 7.3 g/dL (6.3-8.3) 07/23/17 07:45 Albumin 3.9 g/dL (3.5-5.0) 07/23/17 07:45 Globulin 3.4 gm/dL (2.2-3.9) 07/23/17 07:45 Albumin/Globulin Ratio 1.1 (1.0-2.1) 07/23/17 07:45 Triglycerides 147 mg/dL (0-149) D 07/20/17 07:48 Cholesterol 145 mg/dL (0-199) 07/20/17 07:48 LDL Cholesterol Direct 102 mg/dL (0-129) 07/20/17 07:48 HDL Cholesterol 24 mg/dL (30-70) L 07/20/17 07:48 Lipase 92 U/L (23-300) 07/19/17 15:11 Vitamin B12 340 pg/mL (239-931) 07/20/17 07:48 Folate > 20.0 ng/mL 07/20/17 07:48 Free T4 0.85 ng/dL (0.78-2.19) 07/20/17 07:48 TSH 3rd Generation 2.82 mIU/L (0.46-4.68) 07/20/17 07:48 - Hospital Course Hospital Course: 72 year old male with past medical history of HTN, DMT2, CKD stage III presented to [facility] on 07/19/17 to follow up abnormal stress test results obtain for clearance for elective knee surgery. Patient's chest xray showed no active disease. Patient underwent an echocardiogram which showed borderline concentric LVH, normal LV systolic function, EF of 60-65%, trace mitral regurgitation, and a mildly dilated aorta of 4.4cm. Prior to cardiac catheterization, Dr. Mcmullen from nephrology was consulted who recommended IV fluids. On 07/20/17 Dr. Smith completed a heart catheterization which showed severe triple vessel disease (mid-LAD 80-90% lesion, proximal L Circumflex 70% stenosis , large obtuse marginal 1 branch 90% stenosis, obtuse marginal 2 branch 80% stenosis, right coronary artery 100% occluded, LVEF 55%). Upon review of the cardiac catheterization Dr. Smith recommended coronary artery bypass grafting surgery. While in hospital awaiting transfer to [facility] for CABG, patient was treated by hospital team for chronic conditions; HTN- metoprolol succinate 25mg BID, hydralazine 50mg TID, DMT2- home oral hypoglycemics held, Insulin sliding scale begun, CKDIII- IVF discontinued day after catheterization as Cr stabilized. Patient was placed on eliquis prophylaxis and pepcid 20mg daily. While in hospital patients A1c was measured at 3.4, Triglycerides-147, Cholesterol-145, LDL-102, HDL-24, TSH and Free T4 WNL. Patient was also found to have macrocytic anemia with Hgb at 9.7 and MVC at 102.7. Patient's folate and Vit b12 levels were within normal limits. A lower extremity venous duplex was ordered for the patient which showed no evidence of deep or superficial vein thrombosis bilaterally. A repeat CXR was congruent with admission CXR showing no active disease. Patient was placed on Crestor 20mg HS, Lovaza 1gm BID, Lasix 20mg PO daily and ASA 325mg daily in addition to the medications listed above. Dr. Pendleton from nephrology was consulted in preparation for transfer. She recommended fluid restriction and daily weight monitoring. Upon discharge, patient was stable with a Cr of 1.6, Hgb steady at 9.7, and vitals WNL. Patient was transferred by ambulance to [facility] on at 9:20am. Discharge Exam - Head Exam Head Exam: ATRAUMATIC, NORMAL INSPECTION - Additional Findings Additional findings: - Constitutional Appears: Non-toxic, No Acute Distress, Other (obese) - Head Exam Head Exam: ATRAUMATIC, NORMAL INSPECTION, NORMOCEPHALIC - Eye Exam Eye Exam: EOMI, Normal appearance - ENT Exam ENT Exam: Mucous Membranes Moist - Neck Exam Neck Exam: absent: Lymphadenopathy - Respiratory Exam Respiratory Exam: Clear to Ausculation Bilateral, NORMAL BREATHING PATTERN. absent: Rales, Rhonchi, Wheezes, Respiratory Distress, Stridor - Cardiovascular Exam Cardiovascular Exam: REGULAR RHYTHM, RRR, +S1, +S2 - GI/Abdominal Exam GI & Abdominal Exam: Soft, Normal Bowel Sounds. absent: Distended, Tenderness - Extremities Exam Extremities Exam: Full ROM, b/l LE edema. absent: Tenderness full strength stable lower extremity edema +1 - Neurological Exam Neurological Exam: Alert, Awake, Oriented x3 - Psychiatric Exam Psychiatric exam: Normal Affect, Normal Mood - Skin Skin Exam: Intact, Normal Color, Warm Discharge Plan - Follow Up Plan Condition: STABLE Disposition: Trans to Other Acute Care Hosp Instructions: High Blood Pressure (DC), Osteoarthritis (DC), Coronary Artery Bypass Grafting (DC), Diabetes Type 2 (DC), Recovery After Coronary Artery Bypass Graft Surgery (CABG), Coronary Heart Disease (DC), Chronic Kidney Disease (DC), Diabetes and Diet
== END 2017-07-23 09:30 | disposition short-term general hospital (02) | DRG 287 ==
LOC: C.ER 14:08 → C.9E 16:35 → C.5S 07-20 03:06
PROVIDERS: ADMIT Hospitalist; ATTEND Hospitalist
PROC: B211YZZ Fluoroscopy of Multiple Coronary Arteries using Other Contrast (ICD-10-PCS; 2017-07-20)
PROC: B215YZZ Fluoroscopy of Left Heart using Other Contrast (ICD-10-PCS; 2017-07-20)
PROC: 4A023N7 Measurement of Cardiac Sampling and Pressure, Left Heart, Percutaneous Approach (ICD-10-PCS; principal; 2017-07-20 14:00)
DX: I25.10 Atherosclerotic heart disease of native coronary artery without angina pectoris (principal); I13.0 Hypertensive heart and chronic kidney disease with heart failure and stage 1 through stage 4 chronic kidney disease, or unspecified chronic kidney disease; I25.82 Chronic total occlusion of coronary artery; E11.22 Type 2 diabetes mellitus with diabetic chronic kidney disease; E66.9 Obesity, unspecified; E78.5 Hyperlipidemia, unspecified; I50.9 Heart failure, unspecified; Z79.4 Long term (current) use of insulin; N18.3 Chronic kidney disease, stage 3 (moderate); M17.11 Unilateral primary osteoarthritis, right knee; D53.9 Nutritional anemia, unspecified

== ENCOUNTER 2017-08-05 13:56 | Inpatient (IN) | payer MEDICARE ==
[2017-08-05 15:15] LABS: BASO # 0.1 K/uL (0.0-0.2); BASO % 0.7 % (0.0-2.0); EOS # 0.2 K/uL (0.0-0.7); EOS % 1.8 % (0.0-4.0); HEMOGLOBIN 8.5 g/dL (12.0-18.0); LYMPH # 1.4 K/uL (1.0-4.3); MEAN CELL VOLUME 98.4 fL (80.0-94.0); MEAN CORPUSCULAR HEMOGLOBIN 32.6 pg (27.0-31.0); MEAN CORPUSCULAR HGB CONC 33.1 g/dL (33.0-37.0); MEAN PLATELET VOLUME 8.3 fL (7.2-11.7); MONO # 0.5 K/uL (0.0-0.8); MONO % 5.9 % (0.0-10.0); NEUT % 76.6 % (50.0-75.0); RBC 2.59 Mil/uL (4.40-5.90); RED CELL DISTRIBUTION WIDTH 15.7 % (11.5-14.5); WHITE BLOOD COUNT 9.2 K/uL (4.8-10.8)
[2017-08-05 15:23] LABS: INR 1.2; PROTHROMBIN TIME 13.4 SECONDS (9.7-12.2)
[2017-08-05 15:30] LABS: ALBUMIN 3.5 g/dL (3.5-5.0); CALCIUM 9.2 mg/dl (8.6-10.4)
[2017-08-05 15:40] LABS: CK-MB 0.39 ng/mL (0.0-3.38); TROPONIN I 0.022 ng/mL (0.00-0.120)
--- NOTE | 2017-08-05 16:36 | RAD ---
PROCEDURE: CHEST RADIOGRAPH, 1 VIEW HISTORY: sob COMPARISON: Chest radiograph dated 07/21/2017. FINDINGS: LUNGS: Pulmonary vascular congestion. Questionable left midlung opacity. Left basilar atelectasis. PLEURA: Follow-up pleural effusion. CARDIOVASCULAR: Prior sternotomy with sternal wires and surgical clips redemonstrated. Atherosclerotic aortic calcifications. Cardiomediastinal silhouette stably enlarged. OSSEOUS STRUCTURES: Unchanged. VISUALIZED UPPER ABDOMEN: Normal. OTHER FINDINGS: None. IMPRESSION: Only vascular congestion and small left pleural effusion. Questionable left midlung opacity.
--- NOTE | 2017-08-05 16:46 | C.PDOC ---
History Of Present Illness 72-year-old male, is sent to the emergency department from subacute rehab by his center administrator for evaluation of worsening lower extremity edema. Patient is s/p CABG at the end of July at [facility]. He states he has history of chronic leg edema which has been worsening during his stay in rehab. He denies chest pain, shortness of breath, palpitations, cough, fever, abdominal pain. PMD Jose J Eason MD. Cardiology Kendall Smith MD. Time Seen by Provider: 08/05/17 14:39 Chief Complaint (Nursing): Lower Extremity Problem/Injury History Per: Patient History/Exam Limitations: no limitations Onset/Duration Of Symptoms: Days Current Symptoms Are (Timing): Still Present Severity: Moderate Past Medical History Reviewed: Historical Data, Nursing Documentation, Vital Signs Vital Signs: Last Vital Signs Temp 98.0 F 08/08/17 01:00 Pulse 81 08/08/17 03:30 Resp 18 08/08/17 01:00 BP 110/65 08/08/17 01:00 Pulse Ox 96 08/08/17 06:53 - Medical History PMH: CAD, Diabetes, HTN, Chronic Kidney Disease (CKD III) Surgical History: Appendectomy, Tonsillectomy Other Surgeries: CABG July 2017 - [facility] FLUOROSCOPY OF LEFT HEART USING OTHER CONTRAST (07/19/17) FLUOROSCOPY OF MULTIPLE CORONARY ARTERIES USING OTH CONTRAST (07/19/17) MEASURE OF CARDIAC SAMPL & PRESSURE, L HEART, PERC APPROACH (07/19/17) Family History: States: No Known Family Hx - Social History Hx Alcohol Use: No Hx Substance Use: No - Immunization History Hx Tetanus Toxoid Vaccination: No Hx Influenza Vaccination: Yes Hx Pneumococcal Vaccination: Yes Review Of Systems Constitutional: Negative for: Fever, Chills Cardiovascular: Negative for: Chest Pain, Palpitations Respiratory: Negative for: Cough, Shortness of Breath Gastrointestinal: Negative for: Nausea, Vomiting, Abdominal Pain, Diarrhea Musculoskeletal: Positive for: Other (leg swelling). Negative for: Back Pain Neurological: Negative for: Weakness, Numbness Physical Exam - Physical Exam Appears: Well, Non-toxic, No Acute Distress Skin: Normal Color, Warm, Dry, No Rash Head: Normacephalic Eye(s): bilateral: Normal Inspection Oral Mucosa: Moist Neck: Normal, Normal ROM Chest: Symmetrical, Other (well healing midline sternotomy wound - no erythema or discharge) Cardiovascular: Rhythm Regular, No Murmur Respiratory: Normal Breath Sounds, No Rales, No Rhonchi, No Wheezing Gastrointestinal/Abdominal: Normal Exam, Bowel Sounds, Soft, No Tenderness, No Guarding, No Rebound, Other (obese) Extremity: Pedal Edema (+2 pitting edema B/L LEs), No Calf Tenderness, No Deformity, Other (small 1cm wound, right inner calf with mild surrounding erythema.) Pulses: Left Dorsalis Pedis: Normal, Right Dorsalis Pedis: Normal Neurological/Psych: Oriented x3 ED Course And Treatment - Laboratory Results Result Diagrams: 08/07/17 07:18 08/07/17 07:18 ECG: Interpreted By Me, Viewed By Me (sinus rhythm 69 bpm, first degree AV block , left axis deviation, RBBB, no acute ST changes) ECG Interpretation: Abnormal O2 Sat by Pulse Oximetry: 96 (RA) Pulse Ox Interpretation: Normal - Radiology CXR: Interpreted by Me, Viewed By Me CXR Interpretation: Yes: No Acute Disease. No: Infiltrates Progress Note: Blood work, EKG, Chest X-Ray, Venous doppler ordered and reviewed. Patient requesting Colace - ordered. . 16:50-- Patient discussed with PMD Dr. Eason, agrees with admission to his service for worsening leg edema , elevated BNP, CHF, anemia, acute on chronic kidney injury. Dr Smith is cardiology consult. Disposition - Disposition Disposition: HOSPITALIZED Disposition Time: 16:50 Condition: STABLE - Clinical Impression Clinical Impression: Leg edema, Elevated brain natriuretic peptide (BNP) level, [id number] kidney injury, Anemia - Scribe Statement The provider has reviewed the documentation as recorded by the Scribe (Farhad Ann) Provider Attestation: All medical record entries made by the Scribe were at my direction and personally dictated by me. I have reviewed the chart and agree that the record accurately reflects my personal performance of the history, physical exam, medical decision making, and the department course for this patient. I have also personally directed, reviewed, and agree with the discharge instructions and disposition. Decision To Admit - Pt Status Changed To: Hospital Disposition Of: Inpatient - Admit Certification Admit to Inpatient:: After my assessment, the patient will require hospitalization for at least two midnights. This is because of the severity of symptoms shown, intensity of services needed, and/or the medical risk in this patient being treated as an outpatient. - InPatient: Physician Admission Certification: I certify that this patient requires 2 or more midnights of care for the following reason:: see notes - . Bed Request Type: Telemetry Admitting Physician: Jose J Eason Jr. Patient Diagnosis: Leg edema, Elevated brain natriuretic peptide (BNP) level, [id number] kidney injury, Anemia
[2017-08-05] MEDS ORDERED: Oxycodone/Acetaminophen 5/325 mg Tab PO PRN (17:46)
[2017-08-05] MEDS ORDERED: Home Med 1 UNIT (Lubiprostone [Amitiza] 24 MCG) PO SCH (18:00)
--- NOTE | 2017-08-05 18:20 | CP.PCM.HP ---
History of Present Illness - History of Present Illness History of Present Illness: Patient is a 72 year old male with a past medical history of CAD s/p CABG ( July 23 2017), HTN, DM II, CKD stage III, and chronic right knee pain awaiting replacement, presents to the ED by Dr. Smith's request for worsening lower extremity edema and tenderness. Patient says this started about a week ag oand has progressively worsened to the point where he feels like his right leg is going to "burst". Patient says he is having swelling in both legs but only the right is tender (10/10 only when touched) and it feels more swollen to him. He also complains of lightheadedness that started last week during his physical therapy during his sit-stand exercises, however, this has actually improved since it started. Patient also admits to some diarrhea that he calls "self induced" from taking piyush softeners to help with the constipation caused by his percocet. Patient denies any fever, chills, changes in vision/hearing, headache, nasal congestion, cough, difficulty swallowing, chest pain, SOB, palpitations, abdominal pain, nausea, vomiting, and dysuria. Of note, venous duplex of the lower extremities were done in the ED and found to be negative. Telecommunications Facility Examiner: Dr. Smith Neurology Nurse: Dr. Cintron (seen by Dr. Mcmullen here on last admission) PMH: Triple vessel CAD s/p CABG (July 23 2017), HTN, DM II, CKD stage III, and chronic right knee pain awaiting replacement PSH: CABG Allergies: NKDA FH: Mother from CHF and also had DM; father with CHF; grandfather with prostate cancer SH: former smoker (last cigarette August 07, 1974), denies alcohol or drug use Present on Admission - Present on Admission Any Indicators Present on Admission: No Review of Systems - Review of Systems All systems: reviewed and no additional remarkable complaints except (as per HPI ) Past Patient History - Past Medical History & Family History Past Medical History?: Yes - Past Social History Smoking Status: Former Smoker - CARDIAC Hx Hypertension: Yes - PULMONARY Hx Respiratory Disorders: No - NEUROLOGICAL Hx Neurological Disorder: No - HEENT Hx HEENT Problems: No - RENAL Hx Chronic Kidney Disease: Yes (CKD III) - ENDOCRINE/METABOLIC Hx Endocrine Disorders: Yes Hx Diabetes Mellitus Type 2: Yes - HEMATOLOGICAL/ONCOLOGICAL Hx Blood Disorders: No - INTEGUMENTARY Hx Dermatological Problems: No - MUSCULOSKELETAL/RHEUMATOLOGICAL Hx Musculoskeletal Disorders: Yes Hx Unsteady Gait: Yes (Cane) - GASTROINTESTINAL Hx Gastrointestinal Disorders: No - GENITOURINARY/GYNECOLOGICAL Hx Genitourinary Disorders: No - PSYCHIATRIC Hx Substance Use: No - SURGICAL HISTORY Hx Appendectomy: Yes Hx Tonsillectomy: Yes - ANESTHESIA Hx Anesthesia: Yes Hx Anesthesia Reactions: No Hx Malignant Hyperthermia: No Meds Allergies/Adverse Reactions: Allergies Allergy/AdvReac Type Severity Reaction Status Date / Time No Known Allergies Allergy Verified 08/05/17 14:21 Physical Exam - Constitutional Appears: Non-toxic, No Acute Distress - Head Exam Head Exam: ATRAUMATIC, NORMAL INSPECTION, NORMOCEPHALIC - Eye Exam Eye Exam: EOMI, Normal appearance, PERRL - ENT Exam ENT Exam: Mucous Membranes Dry - Neck Exam Additional comments: obese with large neck - Respiratory Exam Respiratory Exam: Clear to Auscultation Bilateral, NORMAL BREATHING PATTERN. absent: Rales, Rhonchi, Wheezes - Cardiovascular Exam Cardiovascular Exam: Diastolic murmur, RRR, +S1, +S2, Systolic Murmur. absent: Bradycardia, Tachycardia, Gallop, Rubs - GI/Abdominal Exam GI & Abdominal Exam: Normal Bowel Sounds, Soft. absent: Distended, Tenderness - Extremities Exam Extremities exam: Positive for: pedal edema (2+ pitting edema b/l up to the knee ), tenderness (right lower extremity below knee exquisitely tender) Additional comments: Right leg below the knee with mild erythema and warm to touch as compared to the left leg - Back Exam Back exam: NORMAL INSPECTION. absent: rash noted - Neurological Exam Neurological exam: Alert, Oriented x3 - Psychiatric Exam Psychiatric exam: Normal Affect, Normal Mood - Skin Skin Exam: Dry, Intact, Warm Results - Vital Signs Recent Vital Signs: Last Vital Signs Temp 98.7 F 08/05/17 18:00 Pulse 71 08/05/17 18:00 Resp 18 08/05/17 18:00 BP 148/74 08/05/17 18:00 Pulse Ox 96 08/05/17 18:00 - Labs Result Diagrams: 08/05/17 15:08 08/05/17 15:08 Labs: Laboratory Results - last 24 hr 05/02/18 05/02/18 05/02/18 15:08 15:08 15:08 WBC 9.2 RBC 2.59 L Hgb 8.5 L Hct 25.5 L MCV 98.4 H D MCH 32.6 H MCHC 33.1 RDW 15.7 H Plt Count 231 MPV 8.3 Neut % (Auto) 76.6 H Lymph % (Auto) 15.0 L [place] % (Auto) 5.9 Eos % (Auto) 1.8 Baso % (Auto) 0.7 Neut # (Auto) 7.0 Lymph # (Auto) 1.4 [place] # (Auto) 0.5 Eos # (Auto) 0.2 Baso # (Auto) 0.1 PT 13.4 H INR 1.2 APTT 32 Sodium 144 Potassium 4.2 Chloride 107 Carbon Dioxide 24 Anion Gap 17 BUN 30 H Creatinine 1.8 H Est GFR ( Amer) 45 Est GFR (Non-Af Amer) 37 Random Glucose 119 H Calcium 9.2 Total Bilirubin 0.6 AST 38 ALT 57 Alkaline Phosphatase 182 H D Total Creatine Kinase 45 L CK-MB (Mass) 0.39 Troponin I 0.0220 NT-Pro-B Natriuret Pep 4350 H Total Protein 6.8 Albumin 3.5 Globulin 3.4 Albumin/Globulin Ratio 1.0 Assessment & Plan - Assessment and Plan (Free Text) Plan: Bilateral Lower Extremity Edema Secondary to CHF * Dr. Smith consulted - help appreciated * f/u echo * Dr. Carrero consulted - help appreciated * Right sided tenderness, erythema, and warmth - consider cellulitis * Venous duplex of the lower extremities: negative * BNP 4350 * EKG reviewed - will f/u at 9 pm and 3 am * Trop 0.0220 - will f/u trend * I's and O's * Lasix 40 mg IV BID * Metoprolol succinate 50 mg PO QD * Crestor 20 mg PO HS * ASA 81 mg QD History of CAD s/p CABG (July 23, 2017) * Dr. Smith consulted * Continue home medications as above * Percocet PRN pain * Lipid panel from 07/20: Triglycerides-147, Cholesterol-145, LDL-102, HDL-24 History of HTN * continue home med: Metoprolol succinate 50 mg PO QD History of CKD III * Nephro consulted (Dr. Mcmullen) - help appreciated * BUN/Cr: 30/1.8 on admission - not significantly changed from last admission History of DM II * Insulin SS medium dose * Accuchecks ACHS * HbA1c from 07/20: 3.4 * Lipid panel from 07/20: Triglycerides-147, Cholesterol-145, LDL-102, HDL-24 * TSH and Free T4 WNL at last visit * Continue home meds: glyburide, januvia * Hypoglycemia protocol Constipation * Secondary to pain medication use s/p CABG * Miralax PRN Macrocytic Anemia * Worked up at last visit and Vit B12 and Folate found to be within normal limits * Feosol 325 mg QD * Folic Acid 1 mg PO QD * Vitamin B complex QD Prophylaxis * continue meds from rehab center: Lovenox & protonix
[2017-08-05] MEDS ORDERED: Dextrose 50% SYRINGE Inj (50 ml) IV PRN ×2 (18:55→21:47)
[2017-08-05] MEDS ORDERED: Glucagon Recombinant 1 mg Inj IM PRN ×2 (19:02→21:47)
[2017-08-05] MEDS: (Novolin R) Insulin Human Regular 100 units/ml vial SC SCH (21:40)
[2017-08-05 21:53] LABS: CK-MB 0.29 ng/mL (0.0-3.38); TROPONIN I 0.024 ng/mL (0.00-0.120)
[2017-08-06 03:26] LABS: CK-MB 0.25 ng/mL (0.0-3.38)
[2017-08-06 07:31] LABS: BASO # 0.1 K/uL (0.0-0.2); EOS # 0.2 K/uL (0.0-0.7); EOS % 3.1 % (0.0-4.0); HEMOGLOBIN 8.1 g/dL (12.0-18.0); LYMPH # 1.5 K/uL (1.0-4.3); LYMPH % 20.8 % (20.0-40.0); MEAN CELL VOLUME 97.3 fL (80.0-94.0); MEAN CORPUSCULAR HEMOGLOBIN 32.3 pg (27.0-31.0); MEAN CORPUSCULAR HGB CONC 33.2 g/dL (33.0-37.0); MEAN PLATELET VOLUME 8.2 fL (7.2-11.7); MONO # 0.5 K/uL (0.0-0.8); MONO % 6.8 % (0.0-10.0); NEUT # 4.9 K/uL (1.8-7.0); NEUT % 68.3 % (50.0-75.0); RBC 2.49 Mil/uL (4.40-5.90); RED CELL DISTRIBUTION WIDTH 15.5 % (11.5-14.5); WHITE BLOOD COUNT 7.1 K/uL (4.8-10.8)
[2017-08-06 07:40] LABS: CALCIUM 8.8 mg/dl (8.6-10.4)
[2017-08-06] MEDS: Metoprolol Succinate 50 mg XL Tab PO SCH (09:48)
[2017-08-06] MEDS ORDERED: Pantoprazole 40 mg EC Tab PO SCH (10:00)
[2017-08-06] MEDS ORDERED: MAGNESIUM ASPARTATE PO SCH (10:00)
[2017-08-06] MEDS ORDERED: POLYETHYLENE GLYCOL 3350 17 GM/Dose PACKET PO SCH (10:00)
[2017-08-06] MEDS: (Novolin R) Insulin Human Regular 100 units/ml vial SC SCH ×4 (10:45→21:06)
[2017-08-06] MEDS ORDERED: Perflutren Lipid Microsphere 1.5 ML SUS IV ONE (10:49)
--- NOTE | 2017-08-06 11:01 | CP.PCM.CON ---
History of Present Illness - History of Present Illness History of Present Illness: 72 y/o man admitted with increased LE swelling. Has h/o of CAD s/p CABG (July 23 2017), HTN, DM II, CKD stage III, and chronic right knee pain awaiting replacement, presents to the ED by Dr. Smith's request for worsening lower extremity edema and tenderness. Patient says this started about a week ago and has progressively worsened to the point where he feels like his right leg is going to "burst". Patient says he is having swelling in both legs but only the right is tender (10/10 only when touched) and it feels more swollen to him. He also complains of lightheadedness that started last week during his physical therapy during his sit-stand exercises, however, this has actually improved since it started. Patient also admits to some diarrhea that he calls "self induced" from taking piyush softeners to help with the constipation caused by his percocet. Patient denies any fever, chills, changes in vision/hearing, headache, nasal congestion, cough, difficulty swallowing, chest pain, SOB, palpitations, abdominal pain, nausea, vomiting, and dysuria. Of note, venous duplex of the lower extremities were done in the ED and found to be negative. as long h/o CKD and LE edema. Developmental Behavioral Physician: Dr. Smith Oil Sprayer: Dr. Cintron (seen by Dr. Mcmullen here on last admission) PMH: Triple vessel CAD s/p CABG (July 23 2017), HTN, DM II, CKD stage III, and chronic right knee pain awaiting replacement PSH: CABG Allergies: NKDA FH: Mother from CHF and also had DM; father with CHF; grandfather with prostate cancer SH: former smoker (last cigarette August 07, 1974), denies alcohol or drug use Review of Systems - Constitutional Constitutional: Fatigue, Weakness - EENT Eyes: absent: As Per HPI, Blind Spots, Blurred Vision, Change in Vision, Decreased Night Vision, Diplopia, Discharge, Dry Eye, Exophthalmos, Floaters, Irritation, Itchy Eyes, Loss of Peripheral Vision, Pain, Photophobia, Requires Corrective Lenses, Sees Flashes, Spots in Vision, Tunnel Vision, Other Visual Disturbances, Loss of Vision, Other Ears: absent: As Per HPI, Decreased Hearing, Ear Discharge, Ear Pain, Tinnitus, Abnormal Hearing, Disequilibrium, Dizziness, Other Nose/Mouth/Throat: absent: As Per HPI, Epistaxis, Nasal Congestion, Nasal Discharge, Nasal Obstruction, Nasal Trauma, Nose Pain, Post Nasal Drip, Sinus Pain, Sinus Pressure, Bleeding Gums, Change in Voice, Dental Pain, Dry Mouth, Dysphagia, Halitosis, Hoarsness, Lip Swelling, Mouth Lesions, Mouth Pain, Odynophagia, Sore Throat, Throat Swelling, Tongue Swelling, Facial Pain, Neck Pain, Neck Mass, Other - Cardiovascular Cardiovascular: Dyspnea on Exertion, Leg Edema - Respiratory Respiratory: Cough, Dyspnea on Exertion - Gastrointestinal Gastrointestinal: Nausea - Genitourinary Genitourinary: Voiding Freq/Small Amts - Musculoskeletal Musculoskeletal: Muscle Cramps, Myalgias - Neurological Neurological: Weakness Past Patient History - Past Medical History & Family History Past Medical History?: Yes Past Family History: Reviewed and not pertinent - Past Social History Smoking Status: Former Smoker Chewing Tobacco Use: No Cigar Use: No Alcohol: None Drugs: Denies - CARDIAC Hx Hypertension: Yes - PULMONARY Hx Respiratory Disorders: No - NEUROLOGICAL Hx Neurological Disorder: No - HEENT Hx HEENT Problems: No - RENAL Hx Chronic Kidney Disease: Yes (CKD III) - ENDOCRINE/METABOLIC Hx Endocrine Disorders: Yes Hx Diabetes Mellitus Type 2: Yes - HEMATOLOGICAL/ONCOLOGICAL Hx Blood Disorders: No - INTEGUMENTARY Hx Dermatological Problems: No - MUSCULOSKELETAL/RHEUMATOLOGICAL Hx Musculoskeletal Disorders: Yes Hx Unsteady Gait: Yes (Cane) - GASTROINTESTINAL Hx Gastrointestinal Disorders: No - GENITOURINARY/GYNECOLOGICAL Hx Genitourinary Disorders: No - PSYCHIATRIC Hx Substance Use: No - SURGICAL HISTORY Hx Appendectomy: Yes Hx Tonsillectomy: Yes - ANESTHESIA Hx Anesthesia: Yes Hx Anesthesia Reactions: No Hx Malignant Hyperthermia: No Meds Allergies/Adverse Reactions: Allergies Allergy/AdvReac Type Severity Reaction Status Date / Time No Known Allergies Allergy Verified 08/05/17 14:21 - Medications Medications: Current Medications Allopurinol (Zyloprim) 100 mg PO DAILY [facility] Last Admin: 08/06/17 09:48 Dose: 100 mg Aspirin (Aspirin Chewable) 81 mg PO DAILY [facility] Last Admin: 08/06/17 09:48 Dose: 81 mg Enoxaparin Sodium (Lovenox) 40 mg SC DAILY [facility] Ferrous Sulfate (Feosol) 325 mg PO DAILY [facility] Last Admin: 08/06/17 09:49 Dose: 325 mg Folic Acid (Folic Acid) 1 mg PO DAILY [facility] Last Admin: 08/06/17 09:49 Dose: 1 mg Furosemide (Lasix) 40 mg IVP BID [facility] Last Admin: 08/06/17 09:50 Dose: 40 mg Insulin Human Regular (Novolin R) 0 unit SC ACHS [facility] PRN Reason: Protocol Last Admin: 08/05/17 21:40 Dose: Not Given Metoprolol Succinate (Toprol Xl) 50 mg PO DAILY [facility] Last Admin: 08/06/17 09:48 Dose: 50 mg Oxycodone/Acetaminophen (Percocet 5/325 Mg Tab) 1 tab PO Q4 PRN PRN Reason: Pain, moderate (4-7) Stop: 08/08/17 17:47 Polyethylene Glycol (Miralax) 17 gm PO DAILY [facility] Last Admin: 08/06/17 09:49 Dose: 17 gm Rosuvastatin Calcium (Crestor) 20 mg PO HS [facility] Last Admin: 08/05/17 21:17 Dose: 20 mg Tamsulosin HCl (Flomax) 0.4 mg PO DAILY [facility] Last Admin: 08/06/17 09:48 Dose: 0.4 mg Vitamin B Complex/Vit C/Folic Acid (Nephro-[place]) 1 tab PO DAILY [facility] Physical Exam - Constitutional Appears: No Acute Distress, Chronically Ill - Head Exam Head Exam: ATRAUMATIC, NORMAL INSPECTION - Eye Exam Eye Exam: EOMI, Normal appearance - Neck Exam Neck exam: Positive for: Normal Inspection. Negative for: Tenderness - Respiratory Exam Respiratory Exam: Rales, Respiratory Distress - Cardiovascular Exam Cardiovascular Exam: REGULAR RHYTHM, +S1 - GI/Abdominal Exam GI & Abdominal Exam: Soft - Extremities Exam Extremities exam: Positive for: pedal edema, tenderness - Neurological Exam Neurological exam: Alert, CN II-XII Intact - Skin Skin Exam: Dry, Warm Results - Vital Signs Recent Vital Signs: Last Vital Signs Temp 97.7 F 08/06/17 07:30 Pulse 63 08/06/17 07:30 Resp 20 08/06/17 07:30 BP 124/71 08/06/17 09:50 Pulse Ox 98 08/06/17 07:30 - Labs Result Diagrams: 08/06/17 07:11 08/06/17 07:11 Labs: Laboratory Results - last 24 hr 08/05/17 08/05/17 08/05/17 15:08 15:08 15:08 WBC 9.2 RBC 2.59 L Hgb 8.5 L Hct 25.5 L MCV 98.4 H D MCH 32.6 H MCHC 33.1 RDW 15.7 H Plt Count 231 MPV 8.3 Neut % (Auto) 76.6 H Lymph % (Auto) 15.0 L [place] % (Auto) 5.9 Eos % (Auto) 1.8 Baso % (Auto) 0.7 Neut # (Auto) 7.0 Lymph # (Auto) 1.4 [place] # (Auto) 0.5 Eos # (Auto) 0.2 Baso # (Auto) 0.1 PT 13.4 H INR 1.2 APTT 32 Sodium 144 Potassium 4.2 Chloride 107 Carbon Dioxide 24 Anion Gap 17 BUN 30 H Creatinine 1.8 H Est GFR ( Amer) 45 Est GFR (Non-Af Amer) 37 POC Glucose (mg/dL) Random Glucose 119 H Calcium 9.2 Total Bilirubin 0.6 AST 38 ALT 57 Alkaline Phosphatase 182 H D Total Creatine Kinase 45 L CK-MB (Mass) 0.39 Troponin I 0.0220 NT-Pro-B Natriuret Pep 4350 H Total Protein 6.8 Albumin 3.5 Globulin 3.4 Albumin/Globulin Ratio 1.0 08/05/17 08/05/17 08/06/17 21:23 21:30 02:55 WBC RBC Hgb Hct MCV MCH MCHC RDW Plt Count MPV Neut % (Auto) Lymph % (Auto) [place] % (Auto) Eos % (Auto) Baso % (Auto) Neut # (Auto) Lymph # (Auto) [place] # (Auto) Eos # (Auto) Baso # (Auto) PT INR APTT Sodium Potassium Chloride Carbon Dioxide Anion Gap BUN Creatinine Est GFR ( Amer) Est GFR (Non-Af Amer) POC Glucose (mg/dL) 148 H Random Glucose Calcium Total Bilirubin AST ALT Alkaline Phosphatase Total Creatine Kinase 40 L < 20 L CK-MB (Mass) 0.29 0.25 Troponin I 0.0240 0.0270 NT-Pro-B Natriuret Pep Total Protein Albumin Globulin Albumin/Globulin Ratio 08/06/17 08/06/17 07:11 07:11 WBC 7.1 RBC 2.49 L Hgb 8.1 L Hct 24.2 L MCV 97.3 H MCH 32.3 H MCHC 33.2 RDW 15.5 H Plt Count 203 MPV 8.2 Neut % (Auto) 68.3 Lymph % (Auto) 20.8 [place] % (Auto) 6.8 Eos % (Auto) 3.1 Baso % (Auto) 1.0 Neut # (Auto) 4.9 Lymph # (Auto) 1.5 [place] # (Auto) 0.5 Eos # (Auto) 0.2 Baso # (Auto) 0.1 PT INR APTT Sodium 147 Potassium 3.6 Chloride 107 Carbon Dioxide 27 Anion Gap 17 BUN 28 H Creatinine 1.8 H Est GFR ( Amer) 45 Est GFR (Non-Af Amer) 37 POC Glucose (mg/dL) Random Glucose 83 Calcium 8.8 Total Bilirubin AST ALT Alkaline Phosphatase Total Creatine Kinase CK-MB (Mass) Troponin I NT-Pro-B Natriuret Pep Total Protein Albumin Globulin Albumin/Globulin Ratio Assessment & Plan (1) Type 2 diabetes mellitus with diabetic nephropathy Status: Acute (2) CKD stage 3 due to type 2 diabetes mellitus Status: Acute (3) CHF (congestive heart failure) Status: Acute (4) CAD (coronary artery disease) Status: Acute (5) Multiple vessel coronary artery disease Status: Acute Priority: High (6) Essential (primary) hypertension Status: Chronic - Assessment and Plan (Free Text) Plan: Agree with CHF treatment with IV lasix Evaluate for nephrotic syndrome from DM Serial chemistries renal workup Might need NOEMY I if significant proteinuria
[2017-08-06] MEDS: Multivitamin Vitamin B Complex (Nephro-Vite) Tab PO SCH (11:02)
[2017-08-06] MEDS: Enoxaparin 40 mg Syringe SC SCH (11:02)
--- NOTE | 2017-08-06 11:28 | CP.PCM.PN ---
Subjective - Date & Time of Evaluation Date of Evaluation: 08/06/17 Time of Evaluation: 11:25 - Subjective Subjective: Patient seen and examined at bedside Doing well denies any chest pain or SOB admits to improving lower extremity edema Objective - Vital Signs/Intake and Output Vital Signs (last 24 hours): Temp Pulse Resp BP Pulse Ox 97.7 F 63 20 124/71 98 08/06/17 07:30 08/06/17 07:30 08/06/17 07:30 08/06/17 09:50 08/06/17 07:30 Intake and Output: 08/06/17 08/06/17 06:59 18:59 Intake Total 240 Output Total 1300 Balance -1060 - Medications Medications: Current Medications Allopurinol (Zyloprim) 100 mg PO DAILY [facility] Last Admin: 08/06/17 09:48 Dose: 100 mg Aspirin (Aspirin Chewable) 81 mg PO DAILY [facility] Last Admin: 08/06/17 09:48 Dose: 81 mg Enoxaparin Sodium (Lovenox) 40 mg SC DAILY [facility] Last Admin: 08/06/17 11:02 Dose: 40 mg Ferrous Sulfate (Feosol) 325 mg PO DAILY [facility] Last Admin: 08/06/17 09:49 Dose: 325 mg Folic Acid (Folic Acid) 1 mg PO DAILY [facility] Last Admin: 08/06/17 09:49 Dose: 1 mg Furosemide (Lasix) 40 mg IVP BID [facility] Last Admin: 08/06/17 09:50 Dose: 40 mg Insulin Human Regular (Novolin R) 0 unit SC [facility] PRN Reason: Protocol Last Admin: 08/06/17 10:45 Dose: Not Given Metolazone (Zaroxolyn) 5 mg PO DAILY [facility] Metoprolol Succinate (Toprol Xl) 50 mg PO DAILY [facility] Last Admin: 08/06/17 09:48 Dose: 50 mg Oxycodone/Acetaminophen (Percocet 5/325 Mg Tab) 1 tab PO Q4 PRN PRN Reason: Pain, moderate (4-7) Stop: 08/08/17 17:47 Polyethylene Glycol (Miralax) 17 gm PO DAILY [facility] Last Admin: 08/06/17 09:49 Dose: 17 gm Rosuvastatin Calcium (Crestor) 20 mg PO HS [facility] Last Admin: 08/05/17 21:17 Dose: 20 mg Spironolactone (Aldactone) 25 mg PO BID [facility] Tamsulosin HCl (Flomax) 0.4 mg PO DAILY [facility] Last Admin: 08/06/17 09:48 Dose: 0.4 mg Vitamin B Complex/Vit C/Folic Acid (Nephro-[place]) 1 tab PO DAILY [facility] Last Admin: 08/06/17 11:02 Dose: 1 tab - Labs Labs: 08/06/17 07:11 08/06/17 07:11 PT 13.4 SECONDS (9.7-12.2) H 08/05/17 15:08 INR 1.2 08/05/17 15:08 APTT 32 SECONDS (21-34) 08/05/17 15:08 - Constitutional Appears: Well - Head Exam Head Exam: ATRAUMATIC, NORMAL INSPECTION, NORMOCEPHALIC - Eye Exam Eye Exam: EOMI, Normal appearance, PERRL Pupil Exam: NORMAL ACCOMODATION, PERRL - ENT Exam ENT Exam: Mucous Membranes Moist, Normal Exam - Neck Exam Neck Exam: Full ROM, Normal Inspection. absent: Lymphadenopathy - Respiratory Exam Respiratory Exam: Clear to Ausculation Bilateral, NORMAL BREATHING PATTERN - Cardiovascular Exam Cardiovascular Exam: +S1, +S2. absent: Murmur Additional comments: first degree av Block, Soft S1 - GI/Abdominal Exam GI & Abdominal Exam: Soft, Normal Bowel Sounds. absent: Tenderness - Extremities Exam Extremities Exam: Full ROM, Normal Capillary Refill, Normal Inspection. absent : Joint Swelling, Pedal Edema - Back Exam Back Exam: NORMAL INSPECTION - Neurological Exam Neurological Exam: Alert, Awake, CN II-XII Intact, Normal Gait, Oriented x3 - Psychiatric Exam Psychiatric exam: Normal Affect, Normal Mood - Skin Skin Exam: Dry, Intact, Normal Color, Warm Assessment and Plan (1) CHF (congestive heart failure) Assessment & Plan: Cards (Luis) Pulm (Magan) Nephro (Benedict) Eval for Nephrotic syndrome - follow nephro May need ACEI if proteinuria significant Lasix, Metolizone, Aldactone, ASA, Crestor, Metoprolol Expect bump in K and Cr Goal is aggressive diuresis. Monitor I/Os Status: Chronic (2) DM type 2 (diabetes mellitus, type 2) Assessment & Plan: ISS High Hold Oral DM meds Status: Chronic (3) Gout Assessment & Plan: continue allopurinol Status: Acute (4) Prophylactic measure Assessment & Plan: Lovenox 40 SC QD SCD CI - LE Edema GI ppx not indicated Status: Acute
--- NOTE | 2017-08-06 11:43 | CARD ---
APPROVED REPORT EKG Measurement Heart [id number] <Conclusion> Sinus rhythm with 1st degree AV block Right bundle branch block Abnormal ECG
--- NOTE | 2017-08-06 11:54 | CARD ---
APPROVED REPORT EKG Measurement Heart [id number] <Conclusion> Accelerated Junctional rhythm Low voltage QRS Nonspecific ST abnormality Abnormal ECG
[2017-08-06] MEDS: metOLazone 5 MG TAB PO SCH (11:59)
--- NOTE | 2017-08-06 12:22 | CP.PCM.CON ---
History of Present Illness - History of Present Illness History of Present Illness: reason for consultation: left pleural effusion 72-year-old male with history of coronary artery disease status post status post CABG recently, hypertension, chronic renal insufficiency, diabetes who was admitted for worsening leg edema and tenderness. Patient denies shortness of breath, denies cough, denies fever chills and chest pain. chest x-ray done showed left pleural effusion. PMH: Triple vessel CAD s/p CABG (July 23 2017), HTN, DM II, CKD stage III, and chronic right knee pain awaiting replacement PSH: CABG Allergies: NKDA FH: Mother from CHF and also had DM; father with CHF; grandfather with prostate cancer SH: former smoker (last cigarette August 07, 1974), denies alcohol or drug use Review of Systems - Review of Systems All systems: reviewed and no additional remarkable complaints except (legs swelling) Past Patient History - Past Medical History & Family History Past Medical History?: Yes Past Family History: Reviewed and not pertinent - Past Social History Smoking Status: Former Smoker Chewing Tobacco Use: No Cigar Use: No Alcohol: None Drugs: Denies - CARDIAC Hx Hypertension: Yes - PULMONARY Hx Respiratory Disorders: No - NEUROLOGICAL Hx Neurological Disorder: No - HEENT Hx HEENT Problems: No - RENAL Hx Chronic Kidney Disease: Yes (CKD III) - ENDOCRINE/METABOLIC Hx Endocrine Disorders: Yes Hx Diabetes Mellitus Type 2: Yes - HEMATOLOGICAL/ONCOLOGICAL Hx Blood Disorders: No - INTEGUMENTARY Hx Dermatological Problems: No - MUSCULOSKELETAL/RHEUMATOLOGICAL Hx Musculoskeletal Disorders: Yes Hx Unsteady Gait: Yes (Cane) - GASTROINTESTINAL Hx Gastrointestinal Disorders: No - GENITOURINARY/GYNECOLOGICAL Hx Genitourinary Disorders: No - PSYCHIATRIC Hx Substance Use: No - SURGICAL HISTORY Hx Appendectomy: Yes Hx Tonsillectomy: Yes - ANESTHESIA Hx Anesthesia: Yes Hx Anesthesia Reactions: No Hx Malignant Hyperthermia: No Meds Allergies/Adverse Reactions: Allergies Allergy/AdvReac Type Severity Reaction Status Date / Time No Known Allergies Allergy Verified 08/05/17 14:21 - Medications Medications: Current Medications Allopurinol (Zyloprim) 100 mg PO DAILY REPLACED BY [facility] Last Admin: 08/06/17 09:48 Dose: 100 mg Aspirin (Aspirin Chewable) 81 mg PO DAILY REPLAC[facility] BY [facility] Last Admin: 08/06/17 09:48 Dose: 81 mg Enoxaparin Sodium (Lovenox) 40 mg SC DAILY REPLACED BY [facility] Last Admin: 08/06/17 11:02 Dose: 40 mg Ferrous Sulfate (Feosol) 325 mg PO DAILY [facility]PL[facility] BY [facility] Last Admin: 08/06/17 09:49 Dose: 325 mg Folic Acid (Folic Acid) 1 mg PO DAILY [facility]PL[facility] BY [facility] Last Admin: 08/06/17 09:49 Dose: 1 mg Furosemide (Lasix) 40 mg IVP BID REPLACED BY [facility] Last Admin: 08/06/17 09:50 Dose: 40 mg Insulin Human Regular (Novolin R) 0 unit SC [facility] REPLACED BY [facility] PRN Reason: Protocol Metolazone (Zaroxolyn) 5 mg PO DAILY REPLACED BY [facility] Last Admin: 08/06/17 11:59 Dose: 5 mg Metoprolol Succinate (Toprol Xl) 50 mg PO DAILY [facility]PL[facility] BY [facility] Last Admin: 08/06/17 09:48 Dose: 50 mg Oxycodone/Acetaminophen (Percocet 5/325 Mg Tab) 1 tab PO Q4 PRN PRN Reason: Pain, moderate (4-7) Stop: 08/08/17 17:47 Polyethylene Glycol (Miralax) 17 gm PO DAILY REPLACED BY [facility] Last Admin: 08/06/17 09:49 Dose: 17 gm Rosuvastatin Calcium (Crestor) 20 mg PO [facility] Last Admin: 08/05/17 21:17 Dose: 20 mg Spironolactone (Aldactone) 25 mg PO BID REPLACED BY [facility] Last Admin: 08/06/17 11:53 Dose: 25 mg Tamsulosin HCl (Flomax) 0.4 mg PO DAILY REPL[facility]ED BY [facility] Last Admin: 08/06/17 09:48 Dose: 0.4 mg Vitamin B Complex/Vit C/Folic Acid (Nephro-[place]) 1 tab PO DAILY REPLACED BY [facility] Last Admin: 08/06/17 11:02 Dose: 1 tab Physical Exam - Head Exam Head Exam: ATRAUMATIC, NORMOCEPHALIC - Eye Exam Eye Exam: Normal appearance - ENT Exam ENT Exam: Mucous Membranes Moist - Neck Exam Neck exam: Positive for: Normal Inspection - Respiratory Exam Respiratory Exam: Clear to Auscultation Bilateral - Cardiovascular Exam Cardiovascular Exam: REGULAR RHYTHM - GI/Abdominal Exam GI & Abdominal Exam: Normal Bowel Sounds, Soft - Extremities Exam Extremities exam: Positive for: pedal edema, tenderness - Neurological Exam Neurological exam: Alert, Oriented x3 Results - Vital Signs Recent Vital Signs: Last Vital Signs Temp 97.7 F 08/06/17 07:30 Pulse 63 08/06/17 07:30 Resp 20 08/06/17 07:30 BP 124/71 08/06/17 09:50 Pulse Ox 98 08/06/17 07:30 - Labs Result Diagrams: 08/06/17 07:11 08/06/17 07:11 Labs: Laboratory Results - last 24 hr 08/05/17 08/05/17 08/05/17 15:08 15:08 15:08 WBC 9.2 RBC 2.59 L Hgb 8.5 L Hct 25.5 L MCV 98.4 H D MCH 32.6 H MCHC 33.1 RDW 15.7 H Plt Count 231 MPV 8.3 Neut % (Auto) 76.6 H Lymph % (Auto) 15.0 L [place] % (Auto) 5.9 Eos % (Auto) 1.8 Baso % (Auto) 0.7 Neut # (Auto) 7.0 Lymph # (Auto) 1.4 [place] # (Auto) 0.5 Eos # (Auto) 0.2 Baso # (Auto) 0.1 PT 13.4 H INR 1.2 APTT 32 Sodium 144 Potassium 4.2 Chloride 107 Carbon Dioxide 24 Anion Gap 17 BUN 30 H Creatinine 1.8 H Est GFR ( Amer) 45 Est GFR (Non-Af Amer) 37 POC Glucose (mg/dL) Random Glucose 119 H Calcium 9.2 Total Bilirubin 0.6 AST 38 ALT 57 Alkaline Phosphatase 182 H D Total Creatine Kinase 45 L CK-MB (Mass) 0.39 Troponin I 0.0220 NT-Pro-B Natriuret Pep 4350 H Total Protein 6.8 Albumin 3.5 Globulin 3.4 Albumin/Globulin Ratio 1.0 08/05/17 08/05/17 08/06/17 21:23 21:30 02:55 WBC RBC Hgb Hct MCV MCH MCHC RDW Plt Count MPV Neut % (Auto) Lymph % (Auto) [place] % (Auto) Eos % (Auto) Baso % (Auto) Neut # (Auto) Lymph # (Auto) [place] # (Auto) Eos # (Auto) Baso # (Auto) PT INR APTT Sodium Potassium Chloride Carbon Dioxide Anion Gap BUN Creatinine Est GFR ( Amer) Est GFR (Non-Af Amer) POC Glucose (mg/dL) 148 H Random Glucose Calcium Total Bilirubin AST ALT Alkaline Phosphatase Total Creatine Kinase 40 L < 20 L CK-MB (Mass) 0.29 0.25 Troponin I 0.0240 0.0270 NT-Pro-B Natriuret Pep Total Protein Albumin Globulin Albumin/Globulin Ratio 08/06/17 08/06/17 08/06/17 06:20 07:11 07:11 WBC 7.1 RBC 2.49 L Hgb 8.1 L Hct 24.2 L MCV 97.3 H MCH 32.3 H MCHC 33.2 RDW 15.5 H Plt Count 203 MPV 8.2 Neut % (Auto) 68.3 Lymph % (Auto) 20.8 [place] % (Auto) 6.8 Eos % (Auto) 3.1 Baso % (Auto) 1.0 Neut # (Auto) 4.9 Lymph # (Auto) 1.5 [place] # (Auto) 0.5 Eos # (Auto) 0.2 Baso # (Auto) 0.1 PT INR APTT Sodium 147 Potassium 3.6 Chloride 107 Carbon Dioxide 27 Anion Gap 17 BUN 28 H Creatinine 1.8 H Est GFR ( Amer) 45 Est GFR (Non-Af Amer) 37 POC Glucose (mg/dL) 94 Random Glucose 83 Calcium 8.8 Total Bilirubin AST ALT Alkaline Phosphatase Total Creatine Kinase CK-MB (Mass) Troponin I NT-Pro-B Natriuret Pep Total Protein Albumin Globulin Albumin/Globulin Ratio Assessment & Plan (1) Pleural effusion on left Status: Acute Comment: most likely secondary to CABG. No intervention at this time. Followup chest x-ray in 2 weeks. continue diuretics (2) CKD stage 3 due to type 2 diabetes mellitus Status: Acute
--- NOTE | 2017-08-06 12:33 | VASCLAB ---
PROCEDURE: Lower Extremity Venous Duplex Exam. HISTORY: leg edema, r/o dvt PRIORS: None. TECHNIQUE: Bilateral common femoral, femoral, popliteal and posterior tibial, peroneal and great saphenous veins were evaluated. Flow was assessed with color Doppler, compressibility, assessment of phasic flow and augmentation response. Report prepared by Juan Bynum, UVALDO, RVT FINDINGS: RIGHT: 1. Common Femoral Vein: 1.1. Compressibility - Fully compressible: Thrombus - None : Flow - Phasic: Augmentation -Normal: Reflux - None. 2. Femoral Vein: 2.1. Compressibility - Fully compressible: Thrombus - None : Flow - Phasic: Augmentation -Normal: Reflux - None. 3. Popliteal Vein: 3.1. Compressibility - Fully compressible: Thrombus - None : Flow - Phasic: Augmentation -Normal: Reflux - None. 4. Posterior Tibial Vein: 4.1. Compressibility - : Thrombus - : Flow - : Augmentation -: Reflux - . 5. Peroneal Vein: 5.1. Compressibility - : Thrombus - : Flow - : Augmentation -: Reflux - . 6. Great Saphenous Vein: 6.1. Compressibility - : Thrombus - : Flow - : Augmentation - : Reflux - . LEFT: 1. Common Femoral Vein: 1.1. Compressibility - Fully compressible: Thrombus - None: Flow - Phasic: Augmentation -Normal: Reflux - None. 2. Femoral Vein: 2.1. Compressibility - Fully compressible: Thrombus - None: Flow - Phasic: Augmentation -Normal: Reflux - None. 3. Popliteal Vein: 3.1. Compressibility - Fully compressible: Thrombus - None : Flow - Phasic: Augmentation -Normal: Reflux - None. 4. Posterior Tibial Vein: 4.1. Compressibility - Fully compressible: Thrombus - None: Flow - Phasic: Augmentation -Normal: Reflux - None. 5. Peroneal Vein: 5.1. Compressibility - Fully compressible: Thrombus - None: Flow - Phasic: Augmentation -Normal: Reflux - None. 6. Great Saphenous Vein: 6.1. Compressibility - Fully compressible: Thrombus - None: Flow - Phasic: Augmentation - Normal: Reflux - None. OTHER FINDINGS: Right: Due to severe swelling in the calf, the right peroneal and posterior tibial vein were not visualized. Left: None significant. IMPRESSION: Right: No evidence of deep or superficial vein thrombosis of the right lower extremity. Normal valve function noted of the right side. Left: No evidence of deep or superficial vein thrombosis of the left lower extremity. Normal valve function noted of the left side.
[2017-08-06 13:05] LABS: SQUAMOUS EPITHIAL < 1 /hpf (0-5); URINE BILIRUBIN NEGATIVE (NEGATIVE); URINE BLOOD NEGATIVE (NEGATIVE); URINE CLARITY Clear (Clear); URINE COLOR Colorless (YELLOW); URINE GLUCOSE (UA) NORMAL (Normal); URINE LEUKOCYTE ESTERASE NEG Leu/uL (Negative); URINE PROTEIN NEGATIVE (NEGATIVE); URINE UROBILINOGEN NORMAL mg/dL (0.2-1.0)
--- NOTE | 2017-08-06 20:10 | CARD ---
APPROVED REPORT EXAM: Two-dimensional and M-mode echocardiogram with Doppler, color Doppler with contrast. Other Information Quality : TDSRhythm : INDICATION Peripheral Edema Cardiac Disease: CAD Congestive Heart Failure Echo Enhancing Agent Indication: Endocardial border delineation Agent/Amount Used: Definity RISK FACTORS Diabetes 2D DIMENSIONS IVSd0.9 (0.7-1.1cm)LVDd4.7 (3.9-5.9cm) PWd0.9 (0.7-1.1cm)LVDs3.1 (2.5-4.0cm) FS (%) 34.2 %LVEF (%)63.1 (>50%) M-Mode DIMENSIONS Left Atrium (MM)3.29 (2.5-4.0cm)Aortic Root3.67 (2.2-3.7cm) Aortic Cusp Exc.2.45 (1.5-2.0cm) Mitral Valve MV E Lydipmbt609.0cm/sMV A Malrygct85.5cm/sE/A ratio2.0 TDI E/Lateral E'0.0E/Medial E'0.0 Tricuspid Valve TR Peak [id number]/sTR Peak Gr.[id number] LEFT VENTRICLE The left ventricle is normal size. There is normal left ventricular wall thickness. The left ventricular function is normal. The left ventricular ejection fraction is within the normal range. No regional wall motion abnormalities noted. The left ventricular diastolic function is normal. No left ventricle thrombus noted on this study. There is no ventricular septal defect visualized. There is no left ventricular aneurysm. There is no mass noted in the left ventricle. RIGHT VENTRICLE The right ventricle is normal size. There is normal right ventricular wall thickness. The right ventricular systolic function is normal. ATRIA The left atrium size is normal. The right atrium size is normal. The interatrial septum is intact with no evidence for an atrial septal defect. AORTIC VALVE The aortic valve is normal in structure and function. No aortic regurgitation is present. There is no aortic valvular stenosis. There is no aortic valvular vegetation. MITRAL VALVE The mitral valve is normal in structure and function. There is no evidence of mitral valve prolapse. There is no mitral valve stenosis. There is no mitral valve regurgitation noted. TRICUSPID VALVE The tricuspid valve is normal in structure and function. There is mild to moderate tricuspid regurgitation. Right ventricular systolic pressure is estimated at 40-50 mmHg. There is no tricuspid valve prolapse or vegetation. There is no tricuspid valve stenosis. PULMONIC VALVE The pulmonary valve is normal in structure and function. There is no pulmonic valvular regurgitation. There is no pulmonic valvular stenosis. GREAT VESSELS The aortic root is normal in size. The ascending aorta is normal in size. The pulmonary artery is normal. The IVC is normal in size and collapses >50% with inspiration. PERICARDIAL EFFUSION The pericardium appears normal. There is no pleural effusion. <Conclusion> The left ventricular function is normal. The left ventricular ejection fraction is within the normal range. No regional wall motion abnormalities noted. There is mild to moderate tricuspid regurgitation. Right ventricular systolic pressure is estimated at 40-50 mmHg.
--- NOTE | 2017-08-06 23:13 | CP.PCM.CON ---
History of Present Illness - History of Present Illness History of Present Illness: CC: Pedal edema Patient is a 72 year old male with a past medical history of CAD s/p CABG ( July 23 2017), HTN, DM II, CKD stage III, and chronic right knee pain awaiting replacement, presents to the ED by Dr. Smith's request for worsening lower extremity edema and tenderness. Patient says this started about a week ag oand has progressively worsened to the point where he feels like his right leg is going to "burst". Patient says he is having swelling in both legs but only the right is tender (10/10 only when touched) and it feels more swollen to him. He also complains of lightheadedness that started last week during his physical therapy during his sit-stand exercises, however, this has actually improved since it started. Patient also admits to some diarrhea that he calls "self induced" from taking piyush softeners to help with the constipation caused by his percocet. Patient denies any fever, chills, changes in vision/hearing, headache, nasal congestion, cough, difficulty swallowing, chest pain, SOB, palpitations, abdominal pain, nausea, vomiting, and dysuria. Of note, venous duplex of the lower extremities were done in the ED and found to be negative. Press Catcher: Dr. Cintron (seen by Dr. Mcmullen here on last admission) PMH: Triple vessel CAD s/p CABG (July 23 2017), HTN, DM II, CKD stage III, and chronic right knee pain awaiting replacement PSH: CABG Allergies: NKDA FH: Mother from CHF and also had DM; father with CHF; grandfather with prostate cancer SH: former smoker (last cigarette August 07, 1974), denies alcohol or drug use Present on Admission - Present on Admission Any Indicators Present on Admission: No Review of Systems - Review of Systems All systems: reviewed and no additional remarkable complaints except (as per HPI ) Physical Exam - Constitutional Appears: Non-toxic, No Acute Distress - Head Exam Head Exam: ATRAUMATIC, NORMAL INSPECTION, NORMOCEPHALIC - Eye Exam Eye Exam: EOMI, Normal appearance, PERRL - ENT Exam ENT Exam: Mucous Membranes Dry - Neck Exam Additional comments: obese with large neck - Respiratory Exam Respiratory Exam: Clear to Auscultation Bilateral, NORMAL BREATHING PATTERN. absent: Rales, Rhonchi, Wheezes - Cardiovascular Exam Cardiovascular Exam: Diastolic murmur, RRR, +S1, +S2, Systolic Murmur. absent: Bradycardia, Tachycardia, Gallop, Rubs - GI/Abdominal Exam GI & Abdominal Exam: Normal Bowel Sounds, Soft. absent: Distended, Tenderness - Extremities Exam Extremities exam: Positive for: pedal edema (2+ pitting edema b/l up to the knee ), tenderness (right lower extremity below knee exquisitely tender) Additional comments: Right leg below the knee with mild erythema and warm to touch as compared to the left leg - Back Exam Back exam: NORMAL INSPECTION. absent: rash noted - Neurological Exam Neurological exam: Alert, Oriented x3 - Psychiatric Exam Psychiatric exam: Normal Affect, Normal Mood - Skin Skin Exam: Dry, Intact, Warm Past Patient History - Past Medical History & Family History Past Medical History?: Yes Past Family History: Reviewed and not pertinent - Past Social History Smoking Status: Former Smoker Chewing Tobacco Use: No Cigar Use: No Alcohol: None Drugs: Denies - CARDIAC Hx Hypertension: Yes - PULMONARY Hx Respiratory Disorders: No - NEUROLOGICAL Hx Neurological Disorder: No - HEENT Hx HEENT Problems: No - RENAL Hx Chronic Kidney Disease: Yes (CKD III) - ENDOCRINE/METABOLIC Hx Diabetes Mellitus Type 2: Yes - HEMATOLOGICAL/ONCOLOGICAL Hx Blood Disorders: No - INTEGUMENTARY Hx Dermatological Problems: No - MUSCULOSKELETAL/RHEUMATOLOGICAL Hx Musculoskeletal Disorders: Yes Hx Unsteady Gait: Yes (Cane) - GASTROINTESTINAL Hx Gastrointestinal Disorders: No - GENITOURINARY/GYNECOLOGICAL Hx Genitourinary Disorders: No - PSYCHIATRIC Hx Substance Use: No - SURGICAL HISTORY Hx Appendectomy: Yes Hx Tonsillectomy: Yes - ANESTHESIA Hx Anesthesia: Yes Hx Anesthesia Reactions: No Hx Malignant Hyperthermia: No Meds Allergies/Adverse Reactions: Allergies Allergy/AdvReac Type Severity Reaction Status Date / Time No Known Allergies Allergy Verified 08/05/17 14:21 - Medications Medications: Current Medications Acetaminophen (Tylenol 325mg Tab) 650 mg PO Q6 PRN PRN Reason: PAIN, MILD 1-3 Last Admin: 08/06/17 22:57 Dose: 650 mg Allopurinol (Zyloprim) 100 mg PO DAILY [facility] Last Admin: 08/06/17 09:48 Dose: 100 mg Aspirin (Aspirin Chewable) 81 mg PO DAILY [facility] Last Admin: 08/06/17 09:48 Dose: 81 mg Docusate Sodium (Colace) 100 mg PO BID [facility] Last Admin: 08/06/17 20:46 Dose: 100 mg Enoxaparin Sodium (Lovenox) 40 mg SC DAILY [facility] Last Admin: 08/06/17 11:02 Dose: 40 mg Ferrous Sulfate (Feosol) 325 mg PO DAILY [facility] Last Admin: 08/06/17 09:49 Dose: 325 mg Folic Acid (Folic Acid) 1 mg PO DAILY [facility] Last Admin: 08/06/17 09:49 Dose: 1 mg Furosemide (Lasix) 40 mg IVP BID [facility] Last Admin: 08/06/17 18:45 Dose: 40 mg Insulin Human Regular (Novolin R) 0 unit SC [facility] PRN Reason: Protocol Last Admin: 08/06/17 21:06 Dose: Not Given Metolazone (Zaroxolyn) 5 mg PO DAILY [facility] Last Admin: 08/06/17 11:59 Dose: 5 mg Metoprolol Succinate (Toprol Xl) 50 mg PO DAILY [facility] Last Admin: 08/06/17 09:48 Dose: 50 mg Oxycodone/Acetaminophen (Percocet 5/325 Mg Tab) 1 tab PO Q4 PRN PRN Reason: Pain, moderate (4-7) Stop: 08/08/17 17:47 Polyethylene Glycol (Miralax) 17 gm PO BID [facility] Rosuvastatin Calcium (Crestor) 20 mg PO HS [facility] Last Admin: 08/06/17 21:07 Dose: Not Given Spironolactone (Aldactone) 25 mg PO BID [facility] Last Admin: 08/06/17 18:45 Dose: 25 mg Tamsulosin HCl (Flomax) 0.4 mg PO DAILY [facility] Last Admin: 08/06/17 09:48 Dose: 0.4 mg Vitamin B Complex/Vit C/Folic Acid (Nephro-[place]) 1 tab PO DAILY [facility] Last Admin: 08/06/17 11:02 Dose: 1 tab Results - Vital Signs Recent Vital Signs: Last Vital Signs Temp 98.5 F 08/06/17 15:10 Pulse 83 08/06/17 16:00 Resp 20 08/06/17 15:10 BP 103/59 L 08/06/17 18:45 Pulse Ox 95 08/06/17 15:10 - Labs Result Diagrams: 08/06/17 07:11 08/06/17 07:11 Labs: Laboratory Results - last 24 hr 08/06/17 08/06/17 08/06/17 02:55 06:20 07:11 WBC 7.1 RBC 2.49 L Hgb 8.1 L Hct 24.2 L MCV 97.3 H MCH 32.3 H MCHC 33.2 RDW 15.5 H Plt Count 203 MPV 8.2 Neut % (Auto) 68.3 Lymph % (Auto) 20.8 [place] % (Auto) 6.8 Eos % (Auto) 3.1 Baso % (Auto) 1.0 Neut # (Auto) 4.9 Lymph # (Auto) 1.5 [place] # (Auto) 0.5 Eos # (Auto) 0.2 Baso # (Auto) 0.1 Sodium Potassium Chloride Carbon Dioxide Anion Gap BUN Creatinine Est GFR ( Amer) Est GFR (Non-Af Amer) POC Glucose (mg/dL) 94 Random Glucose Calcium Total Creatine Kinase < 20 L CK-MB (Mass) 0.25 Troponin I 0.0270 Urine Color Urine Clarity Urine pH Ur Specific [place] Urine Protein Urine Glucose (UA) Urine Ketones Urine Blood Urine Nitrate Urine Bilirubin Urine Urobilinogen Ur Leukocyte Esterase Urine WBC (Auto) Urine RBC (Auto) Ur Squamous Epith Cells Ur Random Sodium 08/06/17 08/06/17 08/06/17 07:11 11:56 12:28 WBC RBC Hgb Hct MCV MCH MCHC RDW Plt Count MPV Neut % (Auto) Lymph % (Auto) [place] % (Auto) Eos % (Auto) Baso % (Auto) Neut # (Auto) Lymph # (Auto) [place] # (Auto) Eos # (Auto) Baso # (Auto) Sodium 147 Potassium 3.6 Chloride 107 Carbon Dioxide 27 Anion Gap 17 BUN 28 H Creatinine 1.8 H Est GFR ( Amer) 45 Est GFR (Non-Af Amer) 37 POC Glucose (mg/dL) 161 H Random Glucose 83 Calcium 8.8 Total Creatine Kinase CK-MB (Mass) Troponin I 0.0220 Urine Color Urine Clarity Urine pH Ur Specific [place] Urine Protein Urine Glucose (UA) Urine Ketones Urine Blood Urine Nitrate Urine Bilirubin Urine Urobilinogen Ur Leukocyte Esterase Urine WBC (Auto) Urine RBC (Auto) Ur Squamous Epith Cells Ur Random Sodium 08/06/17 08/06/17 08/06/17 12:54 12:54 16:26 WBC RBC Hgb Hct MCV MCH MCHC RDW Plt Count MPV Neut % (Auto) Lymph % (Auto) [place] % (Auto) Eos % (Auto) Baso % (Auto) Neut # (Auto) Lymph # (Auto) [place] # (Auto) Eos # (Auto) Baso # (Auto) Sodium Potassium Chloride Carbon Dioxide Anion Gap BUN Creatinine Est GFR ( Amer) Est GFR (Non-Af Amer) POC Glucose (mg/dL) 99 Random Glucose Calcium Total Creatine Kinase CK-MB (Mass) Troponin I Urine Color Colorless Urine Clarity Clear Urine pH 7.0 Ur Specific [place] 1.005 Urine Protein Negative Urine Glucose (UA) Normal Urine Ketones Negative Urine Blood Negative Urine Nitrate Negative Urine Bilirubin Negative Urine Urobilinogen Normal Ur Leukocyte Esterase Neg Urine WBC (Auto) < 1 Urine RBC (Auto) < 1 Ur Squamous Epith Cells < 1 Ur Random Sodium 134 08/06/17 08/06/17 16:42 20:46 WBC RBC Hgb Hct MCV MCH MCHC RDW Plt Count MPV Neut % (Auto) Lymph % (Auto) [place] % (Auto) Eos % (Auto) Baso % (Auto) Neut # (Auto) Lymph # (Auto) [place] # (Auto) Eos # (Auto) Baso # (Auto) Sodium Potassium Chloride Carbon Dioxide Anion Gap BUN Creatinine Est GFR ( Amer) Est GFR (Non-Af Amer) POC Glucose (mg/dL) 169 H Random Glucose Calcium Total Creatine Kinase CK-MB (Mass) Troponin I 0.0230 Urine Color Urine Clarity Urine pH Ur Specific [place] Urine Protein Urine Glucose (UA) Urine Ketones Urine Blood Urine Nitrate Urine Bilirubin Urine Urobilinogen Ur Leukocyte Esterase Urine WBC (Auto) Urine RBC (Auto) Ur Squamous Epith Cells Ur Random Sodium Assessment & Plan - Assessment and Plan (Free Text) Assessment: Bilateral Lower Extremity Edema Secondary to CHF * Dr. Smith consulted - help appreciated * f/u echo * Dr. Carrero consulted - help appreciated * Right sided tenderness, erythema, and warmth - consider cellulitis * Venous duplex of the lower extremities: negative * BNP 4350 * EKG reviewed - will f/u at 9 pm and 3 am * Trop 0.0220 - will f/u trend * I's and O's * Lasix 40 mg IV BID * Metoprolol succinate 50 mg PO QD * Crestor 20 mg PO HS * ASA 81 mg QD History of CAD s/p CABG (July 23, 2017) * Continue home medications as above * Percocet PRN pain * Lipid panel from 07/20: Triglycerides-147, Cholesterol-145, LDL-102, HDL-24 History of HTN * continue home med: Metoprolol succinate 50 mg PO QD History of CKD III * Nephro consulted (Dr. Mcmullen) - help appreciated * BUN/Cr: 30/1.8 on admission - not significantly changed from last admission History of DM II * Insulin SS medium dose * Accuchecks ACHS * HbA1c from 07/20: 3.4 * Lipid panel from 07/20: Triglycerides-147, Cholesterol-145, LDL-102, HDL-24 * TSH and Free T4 WNL at last visit * Continue home meds: glyburide, januvia * Hypoglycemia protocol Constipation * Secondary to pain medication use s/p CABG * Miralax PRN Macrocytic Anemia * Worked up at last visit and Vit B12 and Folate found to be within normal limits * Feosol 325 mg QD * Folic Acid 1 mg PO QD * Vitamin B complex QD Prophylaxis * continue meds from rehab center: Lovenox & protonix
[2017-08-07 07:31] LABS: BASO # 0.1 K/uL (0.0-0.2); BASO % 0.9 % (0.0-2.0); EOS # 0.3 K/uL (0.0-0.7); EOS % 3.5 % (0.0-4.0); HEMOGLOBIN 8.2 g/dL (12.0-18.0); LYMPH # 1.7 K/uL (1.0-4.3); LYMPH % 22.8 % (20.0-40.0); MEAN CELL VOLUME 96.3 fL (80.0-94.0); MEAN CORPUSCULAR HEMOGLOBIN 32.1 pg (27.0-31.0); MEAN CORPUSCULAR HGB CONC 33.3 g/dL (33.0-37.0); MEAN PLATELET VOLUME 7.8 fL (7.2-11.7); MONO # 0.6 K/uL (0.0-0.8); MONO % 7.8 % (0.0-10.0); NEUT # 4.9 K/uL (1.8-7.0); RBC 2.56 Mil/uL (4.40-5.90); RED CELL DISTRIBUTION WIDTH 15.9 % (11.5-14.5); WHITE BLOOD COUNT 7.6 K/uL (4.8-10.8)
[2017-08-07] MEDS: (Novolin R) Insulin Human Regular 100 units/ml vial SC SCH ×5 (08:00→22:05)
[2017-08-07 08:13] LABS: ALBUMIN 3.3 g/dL (3.5-5.0)
--- NOTE | 2017-08-07 09:23 | CP.PCM.PN ---
<Antonio Chapman - Last Filed: 08/07/17 19:43> Subjective - Date & Time of Evaluation Date of Evaluation: 08/07/17 Time of Evaluation: 09:19 - Subjective Subjective: PGY-[address] Smith's cardio service: Pt seen and examined at bedside. Nursing reports no acute events overnight. Patient denies SOB, chest pain, or palpitations. Patient reports marked improvement in lower extremity edema since admission. Pt tolerating PT and is using rolling walker. Objective - Vital Signs/Intake and Output Vital Signs (last 24 hours): Temp Pulse Resp BP Pulse Ox 97.7 F 55 L 20 129/74 94 L 08/07/17 07:00 08/07/17 07:00 08/07/17 07:00 08/07/17 07:00 08/07/17 07:00 Intake and Output: 08/07/17 08/07/17 06:59 18:59 Intake Total 320 Output Total 900 Balance -580 - Medications Medications: Current Medications Acetaminophen (Tylenol 325mg Tab) 650 mg PO Q6 PRN PRN Reason: PAIN, MILD 1-3 Last Admin: 08/07/17 02:33 Dose: 650 mg Allopurinol (Zyloprim) 100 mg PO DAILY [facility] Last Admin: 08/06/17 09:48 Dose: 100 mg Aspirin (Aspirin Chewable) 81 mg PO DAILY [facility] Last Admin: 08/06/17 09:48 Dose: 81 mg Docusate Sodium (Colace) 100 mg PO BID [facility] Last Admin: 08/06/17 20:46 Dose: 100 mg Enoxaparin Sodium (Lovenox) 40 mg SC DAILY [facility] Last Admin: 08/06/17 11:02 Dose: 40 mg Ferrous Sulfate (Feosol) 325 mg PO DAILY [facility] Last Admin: 08/06/17 09:49 Dose: 325 mg Folic Acid (Folic Acid) 1 mg PO DAILY [facility] Last Admin: 08/06/17 09:49 Dose: 1 mg Furosemide (Lasix) 40 mg IVP BID [facility] Last Admin: 08/06/17 18:45 Dose: 40 mg Insulin Human Regular (Novolin R) 0 unit SC ACHS [facility] PRN Reason: Protocol Last Admin: 08/07/17 08:00 Dose: Not Given Metolazone (Zaroxolyn) 5 mg PO DAILY [facility] Last Admin: 08/06/17 11:59 Dose: 5 mg Metoprolol Succinate (Toprol Xl) 50 mg PO DAILY [facility] Last Admin: 08/06/17 09:48 Dose: 50 mg Oxycodone/Acetaminophen (Percocet 5/325 Mg Tab) 1 tab PO Q4 PRN PRN Reason: Pain, moderate (4-7) Stop: 08/08/17 17:47 Polyethylene Glycol (Miralax) 17 gm PO BID [facility] Rosuvastatin Calcium (Crestor) 20 mg PO HS [facility] Last Admin: 08/06/17 21:07 Dose: Not Given Spironolactone (Aldactone) 25 mg PO BID [facility] Last Admin: 08/06/17 18:45 Dose: 25 mg Tamsulosin HCl (Flomax) 0.4 mg PO DAILY [facility] Last Admin: 08/06/17 09:48 Dose: 0.4 mg Vitamin B Complex/Vit C/Folic Acid (Nephro-Victor Hugo) 1 tab PO DAILY [facility] Last Admin: 08/06/17 11:02 Dose: 1 tab - Labs Labs: 08/07/17 07:18 08/07/17 07:18 PT 13.4 SECONDS (9.7-12.2) H 08/05/17 15:08 INR 1.2 08/05/17 15:08 APTT 32 SECONDS (21-34) 08/05/17 15:08 - Additional Findings Additional findings: - Constitutional Appears: Non-toxic, No Acute Distress - Head Exam Head Exam: ATRAUMATIC, NORMAL INSPECTION, NORMOCEPHALIC - Eye Exam Eye Exam: EOMI, Normal appearance, PERRL - ENT Exam ENT Exam: Mucous Membranes Dry - Neck Exam Additional comments: obese with large neck - Respiratory Exam Respiratory Exam: Clear to Auscultation Bilateral, NORMAL BREATHING PATTERN. absent: Rales, Rhonchi, Wheezes - Cardiovascular Exam Cardiovascular Exam: Diastolic murmur, RRR, +S1, +S2, Systolic Murmur. absent: Bradycardia, Tachycardia, Gallop, Rubs - GI/Abdominal Exam GI & Abdominal Exam: Normal Bowel Sounds, Soft. absent: Distended, Tenderness - Extremities Exam Extremities exam: Positive for: pedal edema (1+ pitting edema b/l up to mid-warner ) - Back Exam Back exam: NORMAL INSPECTION. absent: rash noted - Neurological Exam Neurological exam: Alert, Oriented x3 - Psychiatric Exam Psychiatric exam: Normal Affect, Normal Mood - Skin Skin Exam: Dry, Intact, Warm Assessment and Plan - Assessment and Plan (Free Text) Plan: B/l Lower extremity Edema 2/2 CHF Admit for aggressive diuresis to tele Venous dopplers (08/05/17): No evidence of DVT Chronic CHF CXR (08/05/17): Vascular congestion. Small left pl effusion. Questionable midlung opacity. ECHO (08/05/17): LVEF 63%, BNP 4350 Trop negative x 3 Lasix 40 mg IV BID Metoprolol succinate 50 mg PO QD ASA 81 mg QD History of CAD s/p CABG (07/2017) Cardiac cath (07/20): mid LAD has 80-90% hazy lesion, proximal L circumflex 70% stenosis, large obtuse marginal 1 90% stenosis, obtuse marginal 2 80% stenosis, mid right coronary 100% occlusion Lipid panel from 07/20: Triglycerides-147, Cholesterol-145, LDL-102, HDL-24 Metoprolol succinate 50 mg PO QD Crestor 20 mg PO HS ASA 81 mg QD History of HTN well controlled continue home med: Metoprolol succinate 50 mg PO QD Antonio Chapman PGY-2 D/w Dr Smith <Kendall Smith - Last Filed: 08/08/17 06:56> Objective - Vital Signs/Intake and Output Vital Signs (last 24 hours): Temp Pulse Resp BP Pulse Ox 98.0 F 81 18 110/65 96 08/08/17 01:00 08/08/17 03:30 08/08/17 01:00 08/08/17 01:00 08/08/17 06:54 Intake and Output: 08/07/17 08/08/17 18:59 06:59 Intake Total 300 Output Total 1450 1100 Balance -1150 -1100 - Medications Medications: Current Medications Acetaminophen (Tylenol 325mg Tab) 650 mg PO Q6 PRN PRN Reason: PAIN, MILD 1-3 Last Admin: 08/08/17 00:26 Dose: 650 mg Allopurinol (Zyloprim) 100 mg PO DAILY [facility] Last Admin: 08/07/17 10:58 Dose: 100 mg Aspirin (Aspirin Chewable) 81 mg PO DAILY [facility] Last Admin: 08/07/17 10:58 Dose: 81 mg [facility] ([facility]) [facility] Last Admin: 08/07/17 18:14 Dose: 667 mg Docusate Sodium (Colace) 100 mg PO BID [facility] Last Admin: 08/07/17 18:14 Dose: 100 mg Enoxaparin Sodium (Lovenox) 40 mg SC DAILY [facility] Last Admin: 08/07/17 11:00 Dose: 40 mg Ferrous Sulfate (Feosol) 325 mg PO DAILY [facility] Last Admin: 08/07/17 11:05 Dose: 325 mg Folic Acid (Folic Acid) 1 mg PO DAILY [facility] Last Admin: 08/07/17 10:58 Dose: 1 mg Furosemide (Lasix) 40 mg IVP BID [facility] Last Admin: 08/07/17 18:16 Dose: 40 mg Insulin Human Regular (Novolin R) 0 unit SC [facility] PRN Reason: Protocol Last Admin: 08/07/17 22:05 Dose: Not Given Metolazone (Zaroxolyn) 5 mg PO DAILY [facility] Last Admin: 08/07/17 10:58 Dose: 5 mg Metoprolol Succinate (Toprol Xl) 50 mg PO DAILY [facility] Last Admin: 08/07/17 10:58 Dose: 50 mg Oxycodone/Acetaminophen (Percocet 5/325 Mg Tab) 1 tab PO Q4 PRN PRN Reason: Pain, moderate (4-7) Stop: 08/08/17 17:47 Polyethylene Glycol (Miralax) 17 gm PO BID [facility] Last Admin: 08/07/17 18:17 Dose: 17 gm Rosuvastatin Calcium (Crestor) 20 mg PO HS [facility] Last Admin: 08/07/17 22:04 Dose: 20 mg Spironolactone (Aldactone) 25 mg PO BID [facility] Last Admin: 08/07/17 18:14 Dose: 25 mg Tamsulosin HCl (Flomax) 0.4 mg PO DAILY [facility] Last Admin: 08/07/17 10:58 Dose: 0.4 mg Vitamin B Complex/Vit C/Folic Acid (Nephro-Victor Hugo) 1 tab PO DAILY [facility] Last Admin: 08/07/17 11:05 Dose: 1 tab - Labs Labs: 08/07/17 07:18 08/07/17 07:18 PT 13.4 SECONDS (9.7-12.2) H 08/05/17 15:08 INR 1.2 08/05/17 15:08 APTT 32 SECONDS (21-34) 08/05/17 15:08 Assessment and Plan - Assessment and Plan (Free Text) Plan: Patient seen and evaluated personally by me Plan of care d/w the director medical safety and as documented
[2017-08-07] MEDS: metOLazone 5 MG TAB PO SCH (10:58)
[2017-08-07] MEDS: Metoprolol Succinate 50 mg XL Tab PO SCH (10:58)
[2017-08-07] MEDS: Enoxaparin 40 mg Syringe SC SCH (11:00)
[2017-08-07] MEDS: Multivitamin Vitamin B Complex (Nephro-Vite) Tab PO SCH (11:05)
[2017-08-07] MEDS: POLYETHYLENE GLYCOL 3350 17 GM/Dose PACKET PO SCH ×2 (11:05→18:17)
--- NOTE | 2017-08-07 13:48 | CP.PCM.PN ---
Subjective - Date & Time of Evaluation Date of Evaluation: 08/07/17 Time of Evaluation: 13:45 - Subjective Subjective: Less LE edema, though still significant Less dyspneic UO-900ml this AM creat stable at 2.1 ua without proteinuria BP controlled Objective - Vital Signs/Intake and Output Vital Signs (last 24 hours): Temp Pulse Resp BP Pulse Ox 97.7 F 56 L 20 123/70 94 L 08/07/17 07:00 08/07/17 08:00 08/07/17 07:00 08/07/17 10:59 08/07/17 07:00 Intake and Output: 08/07/17 08/07/17 06:59 18:59 Intake Total 320 Output Total 900 Balance -580 - Medications Medications: Current Medications Acetaminophen (Tylenol 325mg Tab) 650 mg PO Q6 PRN PRN Reason: PAIN, MILD 1-3 Last Admin: 08/07/17 02:33 Dose: 650 mg Allopurinol (Zyloprim) 100 mg PO DAILY [facility] Last Admin: 08/07/17 10:58 Dose: 100 mg Aspirin (Aspirin Chewable) 81 mg PO DAILY [facility] Last Admin: 08/07/17 10:58 Dose: 81 mg Docusate Sodium (Colace) 100 mg PO BID [facility] Last Admin: 08/07/17 10:58 Dose: 100 mg Enoxaparin Sodium (Lovenox) 40 mg SC DAILY [facility] Last Admin: 08/07/17 11:00 Dose: 40 mg Ferrous Sulfate (Feosol) 325 mg PO DAILY [facility] Last Admin: 08/07/17 11:05 Dose: 325 mg Folic Acid (Folic Acid) 1 mg PO DAILY [facility] Last Admin: 08/07/17 10:58 Dose: 1 mg Furosemide (Lasix) 40 mg IVP BID [facility] Last Admin: 08/07/17 10:59 Dose: 40 mg Insulin Human Regular (Novolin R) 0 unit SC ACHS [facility] PRN Reason: Protocol Last Admin: 08/07/17 13:04 Dose: Not Given Metolazone (Zaroxolyn) 5 mg PO DAILY [facility] Last Admin: 08/07/17 10:58 Dose: 5 mg Metoprolol Succinate (Toprol Xl) 50 mg PO DAILY [facility] Last Admin: 08/07/17 10:58 Dose: 50 mg Oxycodone/Acetaminophen (Percocet 5/325 Mg Tab) 1 tab PO Q4 PRN PRN Reason: Pain, moderate (4-7) Stop: 08/08/17 17:47 Polyethylene Glycol (Miralax) 17 gm PO BID [facility] Last Admin: 08/07/17 11:05 Dose: 17 gm Rosuvastatin Calcium (Crestor) 20 mg PO HS [facility] Last Admin: 08/06/17 21:07 Dose: Not Given Spironolactone (Aldactone) 25 mg PO BID [facility] Last Admin: 08/07/17 10:58 Dose: 25 mg Tamsulosin HCl (Flomax) 0.4 mg PO DAILY [facility] Last Admin: 08/07/17 10:58 Dose: 0.4 mg Vitamin B Complex/Vit C/Folic Acid (Nephro-Victor Hugo) 1 tab PO DAILY [facility] Last Admin: 08/07/17 11:05 Dose: 1 tab - Labs Labs: 08/07/17 07:18 08/07/17 07:18 PT 13.4 SECONDS (9.7-12.2) H 08/05/17 15:08 INR 1.2 08/05/17 15:08 APTT 32 SECONDS (21-34) 08/05/17 15:08 - Constitutional Appears: No Acute Distress, Chronically Ill - Head Exam Head Exam: ATRAUMATIC, NORMAL INSPECTION - Eye Exam Eye Exam: EOMI, Normal appearance - Neck Exam Neck Exam: Normal Inspection. absent: Tenderness - Respiratory Exam Respiratory Exam: Clear to Ausculation Bilateral, NORMAL BREATHING PATTERN - Cardiovascular Exam Cardiovascular Exam: REGULAR RHYTHM, +S1 - GI/Abdominal Exam GI & Abdominal Exam: Soft. absent: Tenderness - Extremities Exam Extremities Exam: Pedal Edema. absent: Tenderness - Neurological Exam Neurological Exam: Alert, CN II-XII Intact - Skin Skin Exam: Dry, Warm Assessment and Plan (1) Type 2 diabetes mellitus with diabetic nephropathy Status: Acute (2) CKD stage 3 due to type 2 diabetes mellitus Status: Acute (3) CHF (congestive heart failure) Status: Chronic (4) CAD (coronary artery disease) Status: Acute (5) Multiple vessel coronary artery disease Status: Acute (6) Essential (primary) hypertension Status: Chronic - Assessment and Plan (Free Text) Plan: Continue diuretics Replete K check protein excretion rate serial chemistries
[2017-08-07] MEDS ORDERED: Potassium Chloride 10 mEq ER Tab PO ONE (14:00)
--- NOTE | 2017-08-07 14:36 | CP.PCM.PN ---
<Mary Anne Cunningham - Last Filed: 08/07/17 14:33> Subjective - Date & Time of Evaluation Date of Evaluation: 08/07/17 Time of Evaluation: 14:33 - Subjective Subjective: PGY2 progress note for Dr. Dias Pt seen and examined at bedside. NO acute events overnight. pt resting comfortably after going through PT. Pt denies having any pain in LE B/L, denies having any CP, SOB, abd pain, N/V/D/C, F/C. Pt states LE swelling has improved considerably since admission. Objective - Vital Signs/Intake and Output Vital Signs (last 24 hours): Temp Pulse Resp BP Pulse Ox 97.7 F 56 L 20 123/70 94 L 08/07/17 07:00 08/07/17 08:00 08/07/17 07:00 08/07/17 10:59 08/07/17 07:00 Intake and Output: 08/07/17 08/07/17 06:59 18:59 Intake Total 320 Output Total 900 Balance -580 - Medications Medications: Current Medications Acetaminophen (Tylenol 325mg Tab) 650 mg PO Q6 PRN PRN Reason: PAIN, MILD 1-3 Last Admin: 08/07/17 02:33 Dose: 650 mg Allopurinol (Zyloprim) 100 mg PO DAILY [facility] Last Admin: 08/07/17 10:58 Dose: 100 mg Aspirin (Aspirin Chewable) 81 mg PO DAILY [facility] Last Admin: 08/07/17 10:58 Dose: 81 mg [facility] Docusate Sodium (Colace) 100 mg PO BID [facility] Last Admin: 08/07/17 10:58 Dose: 100 mg Enoxaparin Sodium (Lovenox) 40 mg SC DAILY [facility] Last Admin: 08/07/17 11:00 Dose: 40 mg Ferrous Sulfate (Feosol) 325 mg PO DAILY [facility] Last Admin: 08/07/17 11:05 Dose: 325 mg Folic Acid (Folic Acid) 1 mg PO DAILY [facility] Last Admin: 08/07/17 10:58 Dose: 1 mg Furosemide (Lasix) 40 mg IVP BID [facility] Last Admin: 08/07/17 10:59 Dose: 40 mg Insulin Human Regular (Novolin R) 0 unit SC [facility] PRN Reason: Protocol Last Admin: 08/07/17 13:04 Dose: Not Given Metolazone (Zaroxolyn) 5 mg PO DAILY [facility] Last Admin: 08/07/17 10:58 Dose: 5 mg Metoprolol Succinate (Toprol Xl) 50 mg PO DAILY [facility] Last Admin: 08/07/17 10:58 Dose: 50 mg Oxycodone/Acetaminophen (Percocet 5/325 Mg Tab) 1 tab PO Q4 PRN PRN Reason: Pain, moderate (4-7) Stop: 08/08/17 17:47 Polyethylene Glycol (Miralax) 17 gm PO BID [facility] Last Admin: 08/07/17 11:05 Dose: 17 gm Rosuvastatin Calcium (Crestor) 20 mg PO HS [facility] Last Admin: 08/06/17 21:07 Dose: Not Given Spironolactone (Aldactone) 25 mg PO BID [facility] Last Admin: 08/07/17 10:58 Dose: 25 mg Tamsulosin HCl (Flomax) 0.4 mg PO DAILY [facility] Last Admin: 08/07/17 10:58 Dose: 0.4 mg Vitamin B Complex/Vit C/Folic Acid (Nephro-Victor Hugo) 1 tab PO DAILY [facility] Last Admin: 08/07/17 11:05 Dose: 1 tab - Labs Labs: 08/07/17 07:18 08/07/17 07:18 PT 13.4 SECONDS (9.7-12.2) H 08/05/17 15:08 INR 1.2 08/05/17 15:08 APTT 32 SECONDS (21-34) 08/05/17 15:08 - Constitutional Appears: Non-toxic, No Acute Distress - Head Exam Head Exam: ATRAUMATIC - ENT Exam ENT Exam: Mucous Membranes Moist - Respiratory Exam Respiratory Exam: Clear to Ausculation Bilateral. absent: Accessory Muscle Use , Rhonchi, Wheezes - Cardiovascular Exam Cardiovascular Exam: REGULAR RHYTHM, +S1, +S2. absent: Gallop, Rubs, Murmur - GI/Abdominal Exam GI & Abdominal Exam: Soft, Normal Bowel Sounds. absent: Distended, Firm, Guarding, Rigid, Tenderness, Organomegaly - Extremities Exam Extremities Exam: Pedal Edema (1+ b/l). absent: Tenderness - Neurological Exam Neurological Exam: Alert, Awake, Oriented x3 - Psychiatric Exam Psychiatric exam: Normal Affect, Normal Mood - Skin Skin Exam: Dry, Erythema (in right LE), Intact, Warm Assessment and Plan - Assessment and Plan (Free Text) Assessment: (1) CHF (congestive heart failure) Venous dopplers negative for DVT Echo showed normal EF, mild-mod TR ProBNP on admission 4350 Trop x 4 negative Cardio, Dr. Smith consulted Pulm, Dr. Carrero consulted Nephro, Dr. Mcmullen consulted Lasix 40 mg IV BID, Metolazone 5 mg po qd, Aldactone, ASA, Crestor, Metoprolol XL 50 mg po qd Expect bump in K and Cr Goal is aggressive diuresis. Monitor I/Os (2) LE swelling Likely due to CHF exacerbation LE dopplers negative for DVT Tylenol prn for pain (3) DM type 2 (diabetes mellitus, type 2) ISS High Hold Oral DM meds (4) Gout continue allopurinol (5) CKD stage III Slight increase in Cr today (2.1) Nephrology is consulted. 24 hour urine collection ordered to check for proteinuria Will continue to monitor. Will use Lasixs cautiously Continue nephrovite, feosol, phsolo (6) History of CAD s/p CABG (07/2017) Lipid panel from 07/20: Triglycerides-147, Cholesterol-145, LDL-102, HDL-24 Continue Aspirin, crestor (7) HTN Will continue to monitor Lasixs, metolazone, aldactone, metoprolol xl (8) Constipation Miralax colace (9) Prophylactic measure Lovenox 40 SC QD SCD CI - LE Edema GI ppx not indicated All orders and management per Dr. Dias <Favian Dias S - Last Filed: 08/08/17 14:28> Objective - Vital Signs/Intake and Output Vital Signs (last 24 hours): Temp Pulse Resp BP Pulse Ox 97.9 F 64 20 119/76 95 08/08/17 08:50 08/08/17 08:50 08/08/17 08:50 08/08/17 09:31 08/08/17 08:50 Intake and Output: 08/08/17 08/08/17 06:59 18:59 Output Total 1100 Balance -1100 - Medications Medications: Current Medications Acetaminophen (Tylenol 325mg Tab) 650 mg PO Q6 PRN PRN Reason: PAIN, MILD 1-3 Last Admin: 08/08/17 00:26 Dose: 650 mg Allopurinol (Zyloprim) 100 mg PO DAILY [facility] Last Admin: 08/08/17 09:31 Dose: 100 mg Aspirin (Aspirin Chewable) 81 mg PO DAILY [facility] Last Admin: 08/08/17 09:31 Dose: 81 mg Calcium Acetate (Phoslo) 667 mg PO [facility]CC [facility] Last Admin: 08/08/17 07:53 Dose: 667 mg Docusate Sodium (Colace) 100 mg PO BID [facility] Last Admin: 08/08/17 09:31 Dose: 100 mg Enoxaparin Sodium (Lovenox) 40 mg SC DAILY [facility] Last Admin: 08/08/17 09:32 Dose: 40 mg Ferrous Sulfate (Feosol) 325 mg PO DAILY [facility] Last Admin: 08/08/17 09:31 Dose: 325 mg Folic Acid (Folic Acid) 1 mg PO DAILY [facility] Last Admin: 08/08/17 09:31 Dose: 1 mg Furosemide (Lasix) 40 mg IVP BID [facility] Last Admin: 08/08/17 09:31 Dose: 40 mg Insulin Human Regular (Novolin R) 0 unit SC [facility] PRN Reason: Protocol Last Admin: 08/08/17 11:35 Dose: Not Given Metolazone (Zaroxolyn) 5 mg PO DAILY [facility] Last Admin: 08/08/17 09:31 Dose: 5 mg Metoprolol Succinate (Toprol Xl) 50 mg PO DAILY [facility] Last Admin: 08/08/17 09:31 Dose: 50 mg Oxycodone/Acetaminophen (Percocet 5/325 Mg Tab) 1 tab PO Q4 PRN PRN Reason: Pain, moderate (4-7) Stop: 08/08/17 17:47 Polyethylene Glycol (Miralax) 17 gm PO BID [facility] Last Admin: 08/08/17 09:32 Dose: 17 gm Rosuvastatin Calcium (Crestor) 20 mg PO HS [facility] Last Admin: 08/07/17 22:04 Dose: 20 mg Spironolactone (Aldactone) 25 mg PO BID [facility] Last Admin: 08/08/17 09:31 Dose: 25 mg Tamsulosin HCl (Flomax) 0.4 mg PO DAILY [facility] Last Admin: 08/08/17 09:31 Dose: 0.4 mg Vitamin B Complex/Vit C/Folic Acid (Nephro-Victor Hugo) 1 tab PO DAILY [facility] Last Admin: 08/08/17 09:31 Dose: 1 tab - Labs Labs: 08/08/17 07:07 08/08/17 07:07 PT 13.4 SECONDS (9.7-12.2) H 08/05/17 15:08 INR 1.2 08/05/17 15:08 APTT 32 SECONDS (21-34) 08/05/17 15:08 Attending/Attestation - Attestation I have personally seen and examined this patient.: Yes I have fully participated in the care of the patient.: Yes I have reviewed all pertinent clinical information, including history, physical exam and plan: Yes Notes (Text): Patient no acute events admitted with congestive heart failure venous Doppler negative for DVT echo showed ejection fraction low proBNP was 4350 Dr. Smtih saw the patient's continue current medications Everything is ordered
--- NOTE | 2017-08-07 23:07 | CARD ---
APPROVED REPORT EKG Measurement Heart [id number] <Conclusion> Sinus rhythm with 1st degree AV block Right bundle branch block Abnormal ECG
[2017-08-08 07:14] LABS: BASO # 0.1 K/uL (0.0-0.2); BASO % 1.1 % (0.0-2.0); EOS # 0.3 K/uL (0.0-0.7); EOS % 3.1 % (0.0-4.0); HEMOGLOBIN 9.7 g/dL (12.0-18.0); LYMPH # 2.4 K/uL (1.0-4.3); LYMPH % 25.6 % (20.0-40.0); MEAN CELL VOLUME 96.1 fL (80.0-94.0); MEAN CORPUSCULAR HEMOGLOBIN 31.8 pg (27.0-31.0); MEAN PLATELET VOLUME 8.1 fL (7.2-11.7); MONO # 0.6 K/uL (0.0-0.8); MONO % 6.6 % (0.0-10.0); NEUT # 5.9 K/uL (1.8-7.0); NEUT % 63.6 % (50.0-75.0); RBC 3.07 Mil/uL (4.40-5.90); RED CELL DISTRIBUTION WIDTH 16.1 % (11.5-14.5); WHITE BLOOD COUNT 9.3 K/uL (4.8-10.8)
[2017-08-08 07:35] LABS: ALB/GLOB RATIO 1.1 (1.0-2.1); ALBUMIN 4.1 g/dL (3.5-5.0)
[2017-08-08] MEDS: (Novolin R) Insulin Human Regular 100 units/ml vial SC SCH ×4 (07:42→21:42)
[2017-08-08] MEDS: Multivitamin Vitamin B Complex (Nephro-Vite) Tab PO SCH (09:31)
[2017-08-08] MEDS: metOLazone 5 MG TAB PO SCH (09:31)
[2017-08-08] MEDS: Metoprolol Succinate 50 mg XL Tab PO SCH (09:31)
[2017-08-08] MEDS: POLYETHYLENE GLYCOL 3350 17 GM/Dose PACKET PO SCH ×2 (09:32→18:01)
[2017-08-08] MEDS: Enoxaparin 40 mg Syringe SC SCH (09:32)
--- NOTE | 2017-08-08 10:09 | CP.PCM.PN ---
Subjective - Date & Time of Evaluation Date of Evaluation: 08/08/17 Time of Evaluation: 10:06 - Subjective Subjective: Notes reviewed Patient oob in chair this am Feels ok overall Edema slowly improving Weight down 7 according to record Tolerating lasix without cramping generalized pain described No sob at rest ROS:10 point ros negative other than stated above Objective - Vital Signs/Intake and Output Vital Signs (last 24 hours): Temp Pulse Resp BP Pulse Ox 97.9 F 64 20 119/76 95 08/08/17 08:50 08/08/17 08:50 08/08/17 08:50 08/08/17 09:31 08/08/17 08:50 Intake and Output: 08/08/17 08/08/17 06:59 18:59 Output Total 1100 Balance -1100 - Medications Medications: Current Medications Acetaminophen (Tylenol 325mg Tab) 650 mg PO Q6 PRN PRN Reason: PAIN, MILD 1-3 Last Admin: 08/08/17 00:26 Dose: 650 mg Allopurinol (Zyloprim) 100 mg PO DAILY ON LICENSE OF [facility] Last Admin: 08/08/17 09:31 Dose: 100 mg Aspirin (Aspirin Chewable) 81 mg PO DAILY [facility] Last Admin: 08/08/17 09:31 Dose: 81 [facility] Last Admin: 08/08/17 07:53 Dose: 667 mg Docusate Sodium (Colace) 100 mg PO BID ON [facility] OF [facility] Last Admin: 08/08/17 09:31 Dose: 100 mg Enoxaparin Sodium (Lovenox) 40 mg SC DAILY [facility] Last Admin: 08/08/17 09:32 Dose: 40 mg Ferrous Sulfate (Feosol) 325 mg PO DAILY [facility] Last Admin: 08/08/17 09:31 Dose: 325 mg Folic Acid (Folic Acid) 1 mg PO DAILY [facility] Last Admin: 08/08/17 09:31 Dose: 1 mg Furosemide (Lasix) 40 mg IVP BID ON [facility] Last Admin: 08/08/17 09:31 Dose: 40 mg Insulin Human Regular (Novolin R) 0 unit SC [facility] ON LICENSE OF [facility] PRN Reason: Protocol Last Admin: 08/08/17 07:42 Dose: Not Given Metolazone (Zaroxolyn) 5 mg PO DAILY ON [facility] Last Admin: 08/08/17 09:31 Dose: 5 mg Metoprolol Succinate (Toprol Xl) 50 mg PO DAILY [facility] Last Admin: 08/08/17 09:31 Dose: 50 mg Oxycodone/Acetaminophen (Percocet 5/325 Mg Tab) 1 tab PO Q4 PRN PRN Reason: Pain, moderate (4-7) Stop: 08/08/17 17:47 Polyethylene Glycol (Miralax) 17 gm PO BID ON [facility] Last Admin: 08/08/17 09:32 Dose: 17 gm Rosuvastatin Calcium (Crestor) 20 mg PO HS ON [facility] Last Admin: 08/07/17 22:04 Dose: 20 mg Spironolactone (Aldactone) 25 mg PO BID ON [facility] Last Admin: 08/08/17 09:31 Dose: 25 mg Tamsulosin HCl (Flomax) 0.4 mg PO DAILY ON [facility] Last Admin: 08/08/17 09:31 Dose: 0.4 mg Vitamin B Complex/Vit C/Folic Acid (Nephro-Victor Hugo) 1 tab PO DAILY ON [facility] OF [facility] Last Admin: 08/08/17 09:31 Dose: 1 tab - Labs Labs: 08/08/17 07:07 08/08/17 07:07 PT 13.4 SECONDS (9.7-12.2) H 08/05/17 15:08 INR 1.2 08/05/17 15:08 APTT 32 SECONDS (21-34) 08/05/17 15:08 - Constitutional Appears: Unkempt, Chronically Ill - Head Exam Head Exam: ATRAUMATIC, NORMAL INSPECTION - Eye Exam Eye Exam: EOMI, Normal appearance - ENT Exam ENT Exam: Mucous Membranes Moist, Normal Oropharynx - Neck Exam Neck Exam: absent: Lymphadenopathy, Thyromegaly - Respiratory Exam Respiratory Exam: Rhonchi. absent: Rales - Cardiovascular Exam Cardiovascular Exam: RRR, +S1, +S2. absent: Rubs - GI/Abdominal Exam GI & Abdominal Exam: Soft, Normal Bowel Sounds - Extremities Exam Extremities Exam: Pedal Edema, Tenderness - Neurological Exam Neurological Exam: Alert, Awake, Oriented x3 - Psychiatric Exam Psychiatric exam: Normal Affect, Normal Mood - Skin Skin Exam: Dry, Intact Assessment and Plan (1) Diabetes type 2, controlled Status: Acute (2) Hypertension Status: Acute (3) [id number] kidney injury Status: Acute (4) Anemia Status: Acute (5) CKD stage 3 due to type 2 diabetes mellitus Status: Acute (6) Leg edema Status: Acute (7) CHF (congestive heart failure) Status: Chronic (8) CAD (coronary artery disease) Status: Acute - Assessment and Plan (Free Text) Plan: Continues to loose weight with lasix and metolazone Continue diuresis Renal function relatively stable Expect creatinine to rise as volume status controlled Continue current care
--- NOTE | 2017-08-08 14:29 | CP.PCM.PN ---
Subjective - Date & Time of Evaluation Date of Evaluation: 08/08/17 Time of Evaluation: 10:00 - Subjective Subjective: clinically same Objective - Vital Signs/Intake and Output Vital Signs (last 24 hours): Temp Pulse Resp BP Pulse Ox 97.9 F 64 20 119/76 95 08/08/17 08:50 08/08/17 08:50 08/08/17 08:50 08/08/17 09:31 08/08/17 08:50 Intake and Output: 08/08/17 08/08/17 06:59 18:59 Output Total 1100 Balance -1100 - Medications Medications: Current Medications Acetaminophen (Tylenol 325mg Tab) 650 mg PO Q6 PRN PRN Reason: PAIN, MILD 1-3 Last Admin: 08/08/17 00:26 Dose: 650 mg Allopurinol (Zyloprim) 100 mg PO DAILY [facility] Last Admin: 08/08/17 09:31 Dose: 100 mg Aspirin (Aspirin Chewable) 81 mg PO DAILY [facility] Last Admin: 08/08/17 09:31 Dose: 81 mg [facility] Last Admin: 08/08/17 07:53 Dose: 667 mg Docusate Sodium (Colace) 100 mg PO BID [facility] Last Admin: 08/08/17 09:31 Dose: 100 mg Enoxaparin Sodium (Lovenox) 40 mg SC DAILY [facility] Last Admin: 08/08/17 09:32 Dose: 40 mg Ferrous Sulfate (Feosol) 325 mg PO DAILY [facility] Last Admin: 08/08/17 09:31 Dose: 325 mg Folic Acid (Folic Acid) 1 mg PO DAILY [facility] Last Admin: 08/08/17 09:31 Dose: 1 mg Furosemide (Lasix) 40 mg IVP BID [facility] Last Admin: 08/08/17 09:31 Dose: 40 mg Insulin Human Regular (Novolin R) 0 unit SC ACHS [facility] PRN Reason: Protocol Last Admin: 08/08/17 11:35 Dose: Not Given Metolazone (Zaroxolyn) 5 mg PO DAILY [facility] Last Admin: 08/08/17 09:31 Dose: 5 mg Metoprolol Succinate (Toprol Xl) 50 mg PO DAILY [facility] Last Admin: 08/08/17 09:31 Dose: 50 mg Oxycodone/Acetaminophen (Percocet 5/325 Mg Tab) 1 tab PO Q4 PRN PRN Reason: Pain, moderate (4-7) Stop: 08/08/17 17:47 Polyethylene Glycol (Miralax) 17 gm PO BID [facility] Last Admin: 08/08/17 09:32 Dose: 17 gm Rosuvastatin Calcium (Crestor) 20 mg PO HS [facility] Last Admin: 08/07/17 22:04 Dose: 20 mg Spironolactone (Aldactone) 25 mg PO BID [facility] Last Admin: 08/08/17 09:31 Dose: 25 mg Tamsulosin HCl (Flomax) 0.4 mg PO DAILY [facility] Last Admin: 08/08/17 09:31 Dose: 0.4 mg Vitamin B Complex/Vit C/Folic Acid (Nephro-Victor Hugo) 1 tab PO DAILY [facility] Last Admin: 08/08/17 09:31 Dose: 1 tab - Labs Labs: 08/08/17 07:07 08/08/17 07:07 PT 13.4 SECONDS (9.7-12.2) H 08/05/17 15:08 INR 1.2 08/05/17 15:08 APTT 32 SECONDS (21-34) 08/05/17 15:08 - Constitutional Appears: Well - Head Exam Head Exam: ATRAUMATIC, NORMAL INSPECTION, NORMOCEPHALIC - Eye Exam Eye Exam: EOMI, Normal appearance, PERRL Pupil Exam: NORMAL ACCOMODATION, PERRL - ENT Exam ENT Exam: Mucous Membranes Moist, Normal Exam - Neck Exam Neck Exam: Full ROM, Normal Inspection. absent: Lymphadenopathy - Respiratory Exam Respiratory Exam: Decreased Breath Sounds - Cardiovascular Exam Cardiovascular Exam: REGULAR RHYTHM, +S1, +S2 - GI/Abdominal Exam GI & Abdominal Exam: Soft, Diminished Bowel Sounds - Rectal Exam Rectal Exam: Deferred
--- NOTE | 2017-08-08 23:59 | CP.PCM.PN ---
Subjective - Date & Time of Evaluation Date of Evaluation: 08/08/17 Time of Evaluation: 13:30 - Subjective Subjective: Pt seen and examined Feels better Denies chest pain and dyspnea Physical Examination - Additional Findings Additional findings: - Constitutional Appears: Non-toxic, No Acute Distress - Head Exam Head Exam: ATRAUMATIC, NORMAL INSPECTION, NORMOCEPHALIC - Eye Exam Eye Exam: EOMI, Normal appearance, PERRL - ENT Exam ENT Exam: Mucous Membranes Dry - Neck Exam Additional comments: obese with large neck - Respiratory Exam Respiratory Exam: Clear to Auscultation Bilateral, NORMAL BREATHING PATTERN. absent: Rales, Rhonchi, Wheezes - Cardiovascular Exam Cardiovascular Exam: Diastolic murmur, RRR, +S1, +S2, Systolic Murmur. absent: Bradycardia, Tachycardia, Gallop, Rubs - GI/Abdominal Exam GI & Abdominal Exam: Normal Bowel Sounds, Soft. absent: Distended, Tenderness - Extremities Exam Extremities exam: Positive for: pedal edema (1+ pitting edema b/l up to mid-warner ) - Back Exam Back exam: NORMAL INSPECTION. absent: rash noted - Neurological Exam Neurological exam: Alert, Oriented x3 - Psychiatric Exam Psychiatric exam: Normal Affect, Normal Mood - Skin Skin Exam: Dry, Intact, Warm Objective - Vital Signs/Intake and Output Vital Signs (last 24 hours): Temp Pulse Resp BP Pulse Ox 97.5 F L 65 20 130/78 96 08/08/17 15:10 08/08/17 18:00 08/08/17 15:10 08/08/17 17:55 08/08/17 15:10 Intake and Output: 08/08/17 08/09/17 18:59 06:59 Intake Total 400 500 Output Total 1000 Balance 400 -500 - Medications Medications: Current Medications Acetaminophen (Tylenol 325mg Tab) 650 mg PO Q6 PRN PRN Reason: PAIN, MILD 1-3 Last Admin: 08/08/17 22:57 Dose: 650 mg Acetaminophen (Tylenol 325mg Tab) 650 mg PO ONCE PRN PRN Reason: Pain, moderate (4-7) Allopurinol (Zyloprim) 100 mg PO DAILY [facility] Last Admin: 08/08/17 09:31 Dose: 100 mg Aspirin (Aspirin Chewable) 81 mg PO DAILY [facility] Last Admin: 08/08/17 09:31 Dose: 81 mg Calcium Acetate (Phoslo) 667 mg PO BIDCC [facility] Last Admin: 08/08/17 17:55 Dose: 667 mg Docusate Sodium (Colace) 100 mg PO BID [facility] Last Admin: 08/08/17 17:55 Dose: 100 mg Enoxaparin Sodium (Lovenox) 40 mg SC DAILY [facility] Last Admin: 08/08/17 09:32 Dose: 40 mg Ferrous Sulfate (Feosol) 325 mg PO DAILY [facility] Last Admin: 08/08/17 09:31 Dose: 325 mg Folic Acid (Folic Acid) 1 mg PO DAILY [facility] Last Admin: 08/08/17 09:31 Dose: 1 mg Furosemide (Lasix) 40 mg IVP BID [facility] Last Admin: 08/08/17 17:55 Dose: 40 mg Insulin Human Regular (Novolin R) 0 unit SC [facility] PRN Reason: Protocol Last Admin: 08/08/17 21:42 Dose: Not Given Metolazone (Zaroxolyn) 5 mg PO DAILY [facility] Last Admin: 08/08/17 09:31 Dose: 5 mg Metoprolol Succinate (Toprol Xl) 50 mg PO DAILY [facility] Last Admin: 08/08/17 09:31 Dose: 50 mg Polyethylene Glycol (Miralax) 17 gm PO BID [facility] Last Admin: 08/08/17 18:01 Dose: 17 gm Rosuvastatin Calcium (Crestor) 20 mg PO HS [facility] Last Admin: 08/08/17 22:59 Dose: 20 mg Spironolactone (Aldactone) 25 mg PO BID [facility] Last Admin: 08/08/17 17:55 Dose: 25 mg Tamsulosin HCl (Flomax) 0.4 mg PO DAILY [facility] Last Admin: 08/08/17 09:31 Dose: 0.4 mg Vitamin B Complex/Vit C/Folic Acid (Nephro-Victor Hugo) 1 tab PO DAILY [facility] Last Admin: 08/08/17 09:31 Dose: 1 tab - Labs Labs: 08/08/17 07:07 08/08/17 07:07 PT 13.4 SECONDS (9.7-12.2) H 08/05/17 15:08 INR 1.2 08/05/17 15:08 APTT 32 SECONDS (21-34) 08/05/17 15:08 Assessment and Plan - Assessment and Plan (Free Text) Assessment: B/l Lower extremity Edema 2/2 CHF Aggressive diuresis to tele Venous dopplers (08/05/17): No evidence of DVT Chronic CHF CXR (08/05/17): Vascular congestion. Small left pl effusion. Questionable midlung opacity. ECHO (08/05/17): LVEF 63%, BNP 4350 Trop negative x 3 Lasix 40 mg IV BID Metoprolol succinate 50 mg PO QD ASA 81 mg QD History of CAD s/p CABG (07/2017) Cardiac cath (07/20): mid LAD has 80-90% hazy lesion, proximal L circumflex 70% stenosis, large obtuse marginal 1 90% stenosis, obtuse marginal 2 80% stenosis, mid right coronary 100% occlusion Lipid panel from 07/20: Triglycerides-147, Cholesterol-145, LDL-102, HDL-24 Metoprolol succinate 50 mg PO QD Crestor 20 mg PO HS ASA 81 mg QD History of HTN well controlled continue home med: Metoprolol succinate 50 mg PO QD
[2017-08-09] MEDS: (Novolin R) Insulin Human Regular 100 units/ml vial SC SCH ×4 (07:13→21:30)
[2017-08-09 07:49] LABS: BASO # 0.1 K/uL (0.0-0.2); EOS # 0.3 K/uL (0.0-0.7); EOS % 3.6 % (0.0-4.0); HEMOGLOBIN 9.6 g/dL (12.0-18.0); LYMPH # 1.7 K/uL (1.0-4.3); LYMPH % 22.1 % (20.0-40.0); MEAN CORPUSCULAR HGB CONC 34.1 g/dL (33.0-37.0); MEAN PLATELET VOLUME 7.8 fL (7.2-11.7); MONO # 0.6 K/uL (0.0-0.8); MONO % 8.2 % (0.0-10.0); NEUT % 65.1 % (50.0-75.0); RBC 2.98 Mil/uL (4.40-5.90); RED CELL DISTRIBUTION WIDTH 16.1 % (11.5-14.5); WHITE BLOOD COUNT 7.6 K/uL (4.8-10.8)
[2017-08-09 08:15] LABS: ALB/GLOB RATIO 1.1 (1.0-2.1); ALBUMIN 3.9 g/dL (3.5-5.0); CALCIUM 9.7 mg/dl (8.6-10.4)
[2017-08-09] MEDS: Metoprolol Succinate 50 mg XL Tab PO SCH (10:04)
[2017-08-09] MEDS: metOLazone 5 MG TAB PO SCH (10:04)
[2017-08-09] MEDS: POLYETHYLENE GLYCOL 3350 17 GM/Dose PACKET PO SCH ×2 (10:04→17:16)
[2017-08-09] MEDS: Enoxaparin 40 mg Syringe SC SCH (10:04)
[2017-08-09] MEDS: Multivitamin Vitamin B Complex (Nephro-Vite) Tab PO SCH (10:10)
[2017-08-09] MEDS ORDERED: Potassium Chloride 20 mEq ER Tab PO SCH (11:45)
[2017-08-09] MEDS ORDERED: Potassium Chloride 20 mEq ER Tab PO STA (13:58)
[2017-08-09] MEDS ORDERED: Potassium Chloride 20 mEq ER Tab PO ONE (14:30)
--- NOTE | 2017-08-09 16:31 | CP.PCM.PN ---
Subjective - Date & Time of Evaluation Date of Evaluation: 08/09/17 Time of Evaluation: 09:40 - Subjective Subjective: clinically same Objective - Vital Signs/Intake and Output Vital Signs (last 24 hours): Temp Pulse Resp BP Pulse Ox 98.3 F 67 20 125/70 95 08/09/17 09:04 08/09/17 12:00 08/09/17 09:04 08/09/17 10:03 08/09/17 09:04 Intake and Output: 08/09/17 08/09/17 06:59 18:59 Intake Total 500 400 Output Total 1300 Balance -800 400 - Medications Medications: Current Medications Acetaminophen (Tylenol 325mg Tab) 650 mg PO Q6 PRN PRN Reason: PAIN, MILD 1-3 Last Admin: 08/08/17 22:57 Dose: 650 mg Acetaminophen (Tylenol 325mg Tab) 650 mg PO ONCE PRN PRN Reason: Pain, moderate (4-7) Last Admin: 08/09/17 02:47 Dose: 650 mg Allopurinol (Zyloprim) 100 mg PO DAILY [facility] Last Admin: 08/09/17 10:04 Dose: 100 mg Aspirin (Aspirin Chewable) 81 mg PO DAILY [facility] Last Admin: 08/09/17 10:04 Dose: 81 mg [facility] ([facility]lo) [facility] Last Admin: 08/09/17 07:48 Dose: 667 mg Docusate Sodium (Colace) 100 mg PO BID [facility] Last Admin: 08/09/17 10:04 Dose: 100 mg Ferrous Sulfate (Feosol) 325 mg PO DAILY [facility] Last Admin: 08/09/17 10:04 Dose: 325 mg Folic Acid (Folic Acid) 1 mg PO DAILY [facility] Last Admin: 08/09/17 10:04 Dose: 1 mg Furosemide (Lasix) 40 mg IVP BID [facility] Last Admin: 08/09/17 10:03 Dose: 40 mg Heparin Sodium (Porcine) (Heparin) 5,000 units SC Q8 [facility] Last Admin: 08/09/17 14:01 Dose: Not Given Insulin Human Regular (Novolin R) 0 unit SC ACHS [facility] PRN Reason: Protocol Last Admin: 08/09/17 12:49 Dose: 2 unit Metolazone (Zaroxolyn) 5 mg PO DAILY [facility] Last Admin: 08/09/17 10:04 Dose: 5 mg Metoprolol Succinate (Toprol Xl) 50 mg PO DAILY [facility] Last Admin: 08/09/17 10:04 Dose: 50 mg Polyethylene Glycol (Miralax) 17 gm PO BID [facility] Last Admin: 08/09/17 10:04 Dose: 17 gm Potassium Chloride (K-Dur 20 Meq Er Tab) 20 meq PO DAILY [facility] Last Admin: 08/09/17 12:51 Dose: 20 meq Rosuvastatin Calcium (Crestor) 20 mg PO HS [facility] Last Admin: 08/08/17 22:59 Dose: 20 mg Spironolactone (Aldactone) 25 mg PO BID [facility] Last Admin: 08/09/17 10:04 Dose: 25 mg Tamsulosin HCl (Flomax) 0.4 mg PO DAILY [facility] Last Admin: 08/09/17 10:04 Dose: 0.4 mg Vitamin B Complex/Vit C/Folic Acid (Nephro-Victor Hugo) 1 tab PO DAILY [facility] Last Admin: 08/09/17 10:10 Dose: 1 tab - Labs Labs: 08/09/17 07:39 08/09/17 07:39 PT 13.4 SECONDS (9.7-12.2) H 08/05/17 15:08 INR 1.2 08/05/17 15:08 APTT 32 SECONDS (21-34) 08/05/17 15:08 - Constitutional Appears: Well - Head Exam Head Exam: ATRAUMATIC, NORMAL INSPECTION, NORMOCEPHALIC - Eye Exam Eye Exam: EOMI, Normal appearance, PERRL Pupil Exam: NORMAL ACCOMODATION, PERRL - ENT Exam ENT Exam: Mucous Membranes Moist, Normal Exam - Neck Exam Neck Exam: Full ROM, Normal Inspection. absent: Lymphadenopathy - Respiratory Exam Respiratory Exam: Decreased Breath Sounds - Cardiovascular Exam Cardiovascular Exam: REGULAR RHYTHM, +S1, +S2 - GI/Abdominal Exam GI & Abdominal Exam: Soft, Diminished Bowel Sounds - Rectal Exam Rectal Exam: Deferred
[2017-08-09 17:46] LABS: CALCIUM 9.8 mg/dl (8.6-10.4)
--- NOTE | 2017-08-09 21:27 | CP.PCM.PN ---
Subjective - Date & Time of Evaluation Date of Evaluation: 08/09/17 Time of Evaluation: 17:15 - Subjective Subjective: Pt seen and examined Leg edema improving Denies chest pain and dyspnea Physical Examination - Additional Findings Additional findings: - Constitutional Appears: Non-toxic, No Acute Distress - Head Exam Head Exam: ATRAUMATIC, NORMAL INSPECTION, NORMOCEPHALIC - Eye Exam Eye Exam: EOMI, Normal appearance, PERRL - ENT Exam ENT Exam: Mucous Membranes Dry - Neck Exam Additional comments: obese with large neck - Respiratory Exam Respiratory Exam: Clear to Auscultation Bilateral, NORMAL BREATHING PATTERN. absent: Rales, Rhonchi, Wheezes - Cardiovascular Exam Cardiovascular Exam: Diastolic murmur, RRR, +S1, +S2, Systolic Murmur. absent: Bradycardia, Tachycardia, Gallop, Rubs - GI/Abdominal Exam GI & Abdominal Exam: Normal Bowel Sounds, Soft. absent: Distended, Tenderness - Extremities Exam Extremities exam: Positive for: pedal edema (1+ pitting edema b/l up to mid-warner ) - Back Exam Back exam: NORMAL INSPECTION. absent: rash noted - Neurological Exam Neurological exam: Alert, Oriented x3 - Psychiatric Exam Psychiatric exam: Normal Affect, Normal Mood - Skin Skin Exam: Dry, Intact, Warm Objective - Vital Signs/Intake and Output Vital Signs (last 24 hours): Temp Pulse Resp BP Pulse Ox 98.0 F 63 18 125/70 98 08/09/17 15:00 08/09/17 15:00 08/09/17 15:00 08/09/17 17:19 08/09/17 15:00 Intake and Output: 08/09/17 08/10/17 18:59 06:59 Intake Total 400 Balance 400 - Medications Medications: Current Medications Acetaminophen (Tylenol 325mg Tab) 650 mg PO Q6 PRN PRN Reason: PAIN, MILD 1-3 Last Admin: 08/08/17 22:57 Dose: 650 mg Acetaminophen (Tylenol 325mg Tab) 650 mg PO ONCE PRN PRN Reason: Pain, moderate (4-7) Last Admin: 08/09/17 02:47 Dose: 650 mg Allopurinol (Zyloprim) 100 mg PO DAILY [facility] Last Admin: 08/09/17 10:04 Dose: 100 mg Aspirin (Aspirin Chewable) 81 mg PO DAILY [facility] Last Admin: 08/09/17 10:04 Dose: 81 mg Calcium Acetate (Phoslo) 667 mg PO BIDCC [facility] Last Admin: 08/09/17 17:16 Dose: 667 mg Docusate Sodium (Colace) 100 mg PO BID [facility] Last Admin: 08/09/17 17:16 Dose: 100 mg Ferrous Sulfate (Feosol) 325 mg PO DAILY [facility] Last Admin: 08/09/17 10:04 Dose: 325 mg Folic Acid (Folic Acid) 1 mg PO DAILY [facility] Last Admin: 08/09/17 10:04 Dose: 1 mg Furosemide (Lasix) 40 mg IVP BID [facility] Last Admin: 08/09/17 17:19 Dose: 40 mg Heparin Sodium (Porcine) (Heparin) 5,000 units SC Q8 [facility] Last Admin: 08/09/17 14:01 Dose: Not Given Insulin Human Regular (Novolin R) 0 unit SC ACHS [facility] PRN Reason: Protocol Last Admin: 08/09/17 17:19 Dose: Not Given Metolazone (Zaroxolyn) 5 mg PO DAILY [facility] Last Admin: 08/09/17 10:04 Dose: 5 mg Metoprolol Succinate (Toprol Xl) 50 mg PO DAILY [facility] Last Admin: 08/09/17 10:04 Dose: 50 mg Polyethylene Glycol (Miralax) 17 gm PO BID [facility] Last Admin: 08/09/17 17:16 Dose: 17 gm Potassium Chloride (K-Dur 20 Meq Er Tab) 20 meq PO DAILY [facility] Last Admin: 08/09/17 12:51 Dose: 20 meq Rosuvastatin Calcium (Crestor) 20 mg PO HS [facility] Last Admin: 08/08/17 22:59 Dose: 20 mg Spironolactone (Aldactone) 25 mg PO BID [facility] Last Admin: 08/09/17 17:16 Dose: 25 mg Tamsulosin HCl (Flomax) 0.4 mg PO DAILY [facility] Last Admin: 08/09/17 10:04 Dose: 0.4 mg Vitamin B Complex/Vit C/Folic Acid (Nephro-Victor Hugo) 1 tab PO DAILY [facility] Last Admin: 08/09/17 10:10 Dose: 1 tab - Labs Labs: 08/09/17 07:39 08/09/17 17:07 PT 13.4 SECONDS (9.7-12.2) H 08/05/17 15:08 INR 1.2 08/05/17 15:08 APTT 32 SECONDS (21-34) 08/05/17 15:08 Assessment and Plan - Assessment and Plan (Free Text) Assessment: B/l Lower extremity Edema 2/2 CHF IV Lasix 40 mg BID Titrate down as needed Venous dopplers (08/05/17): No evidence of DVT Chronic CHF (Preserved EF) CXR (08/05/17): Vascular congestion. Small left pl effusion. Questionable midlung opacity. ECHO (08/05/17): LVEF 63%, BNP 4350 Trop negative x 3 Lasix 40 mg IV BID Metoprolol succinate 50 mg PO QD ASA 81 mg QD History of CAD s/p CABG recently at [place] s/p CABG (07/2017) Cardiac cath (07/20): mid LAD has 80-90% hazy lesion, proximal L circumflex 70% stenosis, large obtuse marginal 1 90% stenosis, obtuse marginal 2 80% stenosis, mid right coronary 100% occlusion Lipid panel from 07/20: Triglycerides-147, Cholesterol-145, LDL-102, HDL-24 Metoprolol succinate 50 mg PO QD Crestor 20 mg PO HS ASA 81 mg QD History of HTN well controlled continue home med: Metoprolol succinate 50 mg PO QD Patient wants to go back to the same Rehab he came from in [place] F/U Dr. Bowers for cardiology as out patient Dr. Wilkes to cover me from tomorrow for cardiac issues
[2017-08-10 06:59] LABS: BASO # 0.1 K/uL (0.0-0.2); BASO % 0.9 % (0.0-2.0); EOS # 0.3 K/uL (0.0-0.7); EOS % 3.3 % (0.0-4.0); HEMOGLOBIN 10.2 g/dL (12.0-18.0); LYMPH % 25.4 % (20.0-40.0); MEAN CELL VOLUME 94.3 fL (80.0-94.0); MEAN CORPUSCULAR HEMOGLOBIN 31.3 pg (27.0-31.0); MEAN CORPUSCULAR HGB CONC 33.2 g/dL (33.0-37.0); MEAN PLATELET VOLUME 8.2 fL (7.2-11.7); MONO # 0.7 K/uL (0.0-0.8); MONO % 8.9 % (0.0-10.0); NEUT # 4.8 K/uL (1.8-7.0); NEUT % 61.5 % (50.0-75.0); RBC 3.26 Mil/uL (4.40-5.90); RED CELL DISTRIBUTION WIDTH 15.9 % (11.5-14.5); WHITE BLOOD COUNT 7.7 K/uL (4.8-10.8)
[2017-08-10 07:14] LABS: ALB/GLOB RATIO 1.1 (1.0-2.1); ALBUMIN 4.2 g/dL (3.5-5.0); CALCIUM 9.7 mg/dl (8.6-10.4)
[2017-08-10] MEDS: (Novolin R) Insulin Human Regular 100 units/ml vial SC SCH ×4 (07:42→22:35)
--- NOTE | 2017-08-10 07:51 | CP.PCM.PN ---
Subjective - Date & Time of Evaluation Date of Evaluation: 08/10/17 Time of Evaluation: 07:00 - Subjective Subjective: Medicine Progress Note: Patient was seen and examined at bedside in the AM. Patient states his leg swelling looks significantly improved compared to his admission. Patient denies shortness of breath and states he is getting out from bed to chair. Patient states he would like to go to rehab to continue working on his physical therapy. Patient denies shortness of breath, chest pain, palpitations, nausea or vomiting. Objective - Vital Signs/Intake and Output Vital Signs (last 24 hours): Temp Pulse Resp BP Pulse Ox 97.6 F 63 20 116/72 95 08/09/17 23:10 08/10/17 00:00 08/09/17 23:10 08/09/17 23:10 08/09/17 23:10 Intake and Output: 08/10/17 08/10/17 06:59 18:59 Intake Total 740 Output Total 2150 Balance -1410 - Medications Medications: Current Medications Acetaminophen (Tylenol 325mg Tab) 650 mg PO Q6 PRN PRN Reason: PAIN, MILD 1-3 Last Admin: 08/09/17 23:23 Dose: 650 mg Acetaminophen (Tylenol 325mg Tab) 650 mg PO ONCE PRN PRN Reason: Pain, moderate (4-7) Last Admin: 08/09/17 02:47 Dose: 650 mg Allopurinol (Zyloprim) 100 mg PO DAILY [facility] Last Admin: 08/09/17 10:04 Dose: 100 mg Aspirin (Aspirin Chewable) 81 mg PO DAILY [facility] Last Admin: 08/09/17 10:04 Dose: 81 mg [facility] Last Admin: 08/09/17 17:16 Dose: 667 mg Docusate Sodium (Colace) 100 mg PO BID [facility] Last Admin: 08/09/17 17:16 Dose: 100 mg Ferrous Sulfate (Feosol) 325 mg PO DAILY [facility] Last Admin: 08/09/17 10:04 Dose: 325 mg Folic Acid (Folic Acid) 1 mg PO DAILY [facility] Last Admin: 08/09/17 10:04 Dose: 1 mg Furosemide (Lasix) 40 mg IVP BID [facility] Last Admin: 08/09/17 17:19 Dose: 40 mg Heparin Sodium (Porcine) (Heparin) 5,000 units SC Q8 [facility] Last Admin: 08/10/17 06:00 Dose: 5,000 units Insulin Human Regular (Novolin R) 0 unit SC ACHS [facility] PRN Reason: Protocol Last Admin: 08/10/17 07:42 Dose: Not Given Metolazone (Zaroxolyn) 5 mg PO DAILY [facility] Last Admin: 08/09/17 10:04 Dose: 5 mg Metoprolol Succinate (Toprol Xl) 50 mg PO DAILY [facility] Last Admin: 08/09/17 10:04 Dose: 50 mg Polyethylene Glycol (Miralax) 17 gm PO BID [facility] Last Admin: 08/09/17 17:16 Dose: 17 gm Potassium Chloride (K-Dur 20 Meq Er Tab) 20 meq PO DAILY [facility] Last Admin: 08/09/17 12:51 Dose: 20 meq Rosuvastatin Calcium (Crestor) 20 mg PO HS [facility] Last Admin: 08/09/17 21:30 Dose: 20 mg Spironolactone (Aldactone) 25 mg PO BID [facility] Last Admin: 08/09/17 17:16 Dose: 25 mg Tamsulosin HCl (Flomax) 0.4 mg PO DAILY [facility] Last Admin: 08/09/17 10:04 Dose: 0.4 mg Vitamin B Complex/Vit C/Folic Acid (Nephro-Victor Hugo) 1 tab PO DAILY [facility] Last Admin: 08/09/17 10:10 Dose: 1 tab - Labs Labs: 08/10/17 06:45 08/10/17 06:45 PT 13.4 SECONDS (9.7-12.2) H 08/05/17 15:08 INR 1.2 08/05/17 15:08 APTT 32 SECONDS (21-34) 08/05/17 15:08 - Constitutional Appears: No Acute Distress - Head Exam Head Exam: NORMAL INSPECTION - Eye Exam Eye Exam: EOMI, Normal appearance - ENT Exam ENT Exam: Mucous Membranes Moist - Respiratory Exam Respiratory Exam: Clear to Ausculation Bilateral, NORMAL BREATHING PATTERN - Cardiovascular Exam Cardiovascular Exam: REGULAR RHYTHM, +S1, +S2 - GI/Abdominal Exam GI & Abdominal Exam: Soft, Normal Bowel Sounds. absent: Tenderness Additional comments: obese abdomen - Extremities Exam Extremities Exam: Normal Capillary Refill, Pedal Edema (+1 bilateral pedal edema ), Tenderness (right foot tenderness ) - Neurological Exam Neurological Exam: Alert, Awake, Oriented x3 - Psychiatric Exam Psychiatric exam: Normal Affect, Normal Mood - Skin Skin Exam: Rash (Anterior chest wall incision - clean/dry/intact) Assessment and Plan - Assessment and Plan (Free Text) Assessment: 1.) CHF Venous dopplers negative for DVT ECHO (08/05/17) showed EF 63%, mild-mod TR ProBNP on admission 4350 Trop x 4 negative Cardio, Dr. Smith consulted Pulm, Dr. Carrero consulted Nephro, Dr. Mcmullen consulted 08/10/17 Changed Lasix to 20mg IV BID Metolazone discontinued (08/10/17) per Dr. Mcmullen Continue Aldactone, ASA, Crestor, Metoprolol XL 50 mg po qd Expect bump in K and Cr Monitor I/Os 2.) LE swelling Likely due to CHF exacerbation LE dopplers negative for DVT Tylenol prn for pain 3.) DM type 2 ISS High Hold Oral DM meds 4.) Gout continue allopurinol 5.) CKD stage III Nephrology Consult: Dr. Mcmullen 24 hour urine collection: 516 Will continue to monitor. Continue nephrovite, feosol, phsolo 6.) History of CAD s/p CABG (07/2017) Lipid panel from 07/20: Triglycerides-147, Cholesterol-145, LDL-102, HDL-24 Continue Aspirin, crestor 7.) HTN Will continue to monitor Lasixs, metolazone, aldactone, metoprolol xl 8.) Constipation Miralax colace 9.) Prophylactic measure Lovenox 40 SC QD GI ppx not indicated Disposition: Patient will return to [facility] for rehab. Case discussed with Dr. Yumi Angelo PGY-1
[2017-08-10] MEDS: Multivitamin Vitamin B Complex (Nephro-Vite) Tab PO SCH (10:05)
[2017-08-10] MEDS: Metoprolol Succinate 50 mg XL Tab PO SCH (10:05)
[2017-08-10] MEDS: metOLazone 5 MG TAB PO SCH (10:05)
[2017-08-10] MEDS: POLYETHYLENE GLYCOL 3350 17 GM/Dose PACKET PO SCH ×2 (10:06→17:31)
--- NOTE | 2017-08-10 12:05 | CP.PCM.PN ---
Subjective - Date & Time of Evaluation Date of Evaluation: 08/10/17 Time of Evaluation: 12:02 - Subjective Subjective: feels better; less dyspneic, decreased edema creat increased to 2.5 lytes acceptable Objective - Vital Signs/Intake and Output Vital Signs (last 24 hours): Temp Pulse Resp BP Pulse Ox 98.2 F 67 20 115/69 96 08/10/17 07:55 08/10/17 08:00 08/10/17 07:55 08/10/17 10:05 08/10/17 07:55 Intake and Output: 08/10/17 08/10/17 06:59 18:59 Intake Total 740 Output Total 2150 Balance -1410 - Medications Medications: Current Medications Acetaminophen (Tylenol 325mg Tab) 650 mg PO Q6 PRN PRN Reason: PAIN, MILD 1-3 Last Admin: 08/09/17 23:23 Dose: 650 mg Acetaminophen (Tylenol 325mg Tab) 650 mg PO ONCE PRN PRN Reason: Pain, moderate (4-7) Last Admin: 08/09/17 02:47 Dose: 650 mg Allopurinol (Zyloprim) 100 mg PO DAILY [facility] Last Admin: 08/10/17 10:05 Dose: 100 mg Aspirin (Aspirin Chewable) 81 mg PO DAILY [facility] Last Admin: 08/10/17 10:05 Dose: 81 mg [facility]cium [facility] ([facility]lo) [facility] Last Admin: 08/10/17 08:00 Dose: 667 mg Docusate Sodium (Colace) 100 mg PO BID [facility] Last Admin: 08/10/17 10:05 Dose: 100 mg Enoxaparin Sodium (Lovenox) 40 mg SC DAILY [facility] Ferrous Sulfate (Feosol) 325 mg PO DAILY [facility] Last Admin: 08/10/17 10:07 Dose: 325 mg Folic Acid (Folic Acid) 1 mg PO DAILY [facility] Last Admin: 08/10/17 10:05 Dose: 1 mg Furosemide (Lasix) 20 mg IVP BID [facility] Insulin Human Regular (Novolin R) 0 unit SC ACHS [facility] PRN Reason: Protocol Last Admin: 08/10/17 07:42 Dose: Not Given Metolazone (Zaroxolyn) 5 mg PO DAILY [facility] Last Admin: 08/10/17 10:05 Dose: 5 mg Metoprolol Succinate (Toprol Xl) 50 mg PO DAILY [facility] Last Admin: 08/10/17 10:05 Dose: 50 mg Polyethylene Glycol (Miralax) 17 gm PO BID [facility] Last Admin: 08/10/17 10:06 Dose: 17 gm Rosuvastatin Calcium (Crestor) 20 mg PO HS [facility] Last Admin: 08/09/17 21:30 Dose: 20 mg Spironolactone (Aldactone) 25 mg PO BID [facility] Last Admin: 08/10/17 10:05 Dose: 25 mg Tamsulosin HCl (Flomax) 0.4 mg PO DAILY [facility] Last Admin: 08/10/17 10:05 Dose: 0.4 mg Vitamin B Complex/Vit C/Folic Acid (Nephro-Victor Hugo) 1 tab PO DAILY [facility] Last Admin: 08/10/17 10:05 Dose: 1 tab - Labs Labs: 08/10/17 06:45 08/10/17 06:45 PT 13.4 SECONDS (9.7-12.2) H 08/05/17 15:08 INR 1.2 08/05/17 15:08 APTT 32 SECONDS (21-34) 08/05/17 15:08 - Constitutional Appears: No Acute Distress, Chronically Ill - Head Exam Head Exam: ATRAUMATIC, NORMAL INSPECTION - Eye Exam Eye Exam: EOMI, Normal appearance - Neck Exam Neck Exam: Normal Inspection. absent: Tenderness - Respiratory Exam Respiratory Exam: Clear to Ausculation Bilateral, NORMAL BREATHING PATTERN - Cardiovascular Exam Cardiovascular Exam: REGULAR RHYTHM, +S1 - GI/Abdominal Exam GI & Abdominal Exam: Soft. absent: Tenderness - Extremities Exam Extremities Exam: Pedal Edema, Tenderness - Neurological Exam Neurological Exam: Awake, CN II-XII Intact - Skin Skin Exam: Dry, Warm Assessment and Plan (1) Type 2 diabetes mellitus with diabetic nephropathy Status: Acute (2) CKD stage 3 due to type 2 diabetes mellitus Status: Acute (3) CHF (congestive heart failure) Status: Chronic (4) CAD (coronary artery disease) Status: Acute (5) Multiple vessel coronary artery disease Status: Acute (6) Essential (primary) hypertension Status: Chronic - Assessment and Plan (Free Text) Plan: lower lasix dose, stop metolazone as creat increasing monitor weights and UO; follow up lytes
[2017-08-10] MEDS ORDERED: Potassium Chloride 20 mEq ER Tab PO ONE (14:30)
[2017-08-11 02:16] VITALS: RESP 20
[2017-08-11 06:28] LABS: BASO # 0.1 K/uL (0.0-0.2); BASO % 1.1 % (0.0-2.0); EOS # 0.2 K/uL (0.0-0.7); EOS % 2.5 % (0.0-4.0); HEMOGLOBIN 10.2 g/dL (12.0-18.0); LYMPH # 1.9 K/uL (1.0-4.3); LYMPH % 23.7 % (20.0-40.0); MEAN CORPUSCULAR HEMOGLOBIN 31.2 pg (27.0-31.0); MEAN CORPUSCULAR HGB CONC 33.5 g/dL (33.0-37.0); MEAN PLATELET VOLUME 8.1 fL (7.2-11.7); MONO # 0.6 K/uL (0.0-0.8); MONO % 7.9 % (0.0-10.0); NEUT # 5.1 K/uL (1.8-7.0); NEUT % 64.8 % (50.0-75.0); RBC 3.28 Mil/uL (4.40-5.90); RED CELL DISTRIBUTION WIDTH 15.9 % (11.5-14.5); WHITE BLOOD COUNT 7.8 K/uL (4.8-10.8)
[2017-08-11 06:50] LABS: ALB/GLOB RATIO 1.1 (1.0-2.1); ALBUMIN 4.2 g/dL (3.5-5.0)
[2017-08-11] MEDS ORDERED: Potassium Chloride 20 mEq ER Tab PO ONE (07:10)
[2017-08-11 08:03] VITALS: O2SAT 98
[2017-08-11] MEDS: (Novolin R) Insulin Human Regular 100 units/ml vial SC SCH ×4 (08:25→21:21)
[2017-08-11] MEDS ORDERED: Enoxaparin 40 mg Syringe SC SCH (10:00)
[2017-08-11] MEDS ORDERED: Enoxaparin 30 mg Syringe SC SCH (10:00)
[2017-08-11] MEDS ORDERED: metOLazone 2.5 MG TAB PO SCH (10:00)
[2017-08-11] MEDS: Metoprolol Succinate 50 mg XL Tab PO SCH (11:00)
[2017-08-11] MEDS: POLYETHYLENE GLYCOL 3350 17 GM/Dose PACKET PO SCH ×2 (11:00→17:25)
[2017-08-11] MEDS: Multivitamin Vitamin B Complex (Nephro-Vite) Tab PO SCH (11:00)
--- NOTE | 2017-08-11 13:04 | CP.PCM.PN ---
Subjective - Date & Time of Evaluation Date of Evaluation: 08/11/17 Time of Evaluation: 13:02 - Subjective Subjective: seen and examined improved breathing and leg swelling 'for transfer to [facility] today labs noted potassium supplemented Objective - Vital Signs/Intake and Output Vital Signs (last 24 hours): Temp Pulse Resp BP Pulse Ox 97.5 F L 58 L 20 123/74 98 08/11/17 07:30 08/11/17 07:30 08/11/17 07:30 08/11/17 11:00 08/11/17 07:30 Intake and Output: 08/11/17 08/11/17 06:59 18:59 Intake Total 600 Output Total 1800 Balance -1200 - Medications Medications: Current Medications Acetaminophen (Tylenol 325mg Tab) 650 mg PO Q6 PRN PRN Reason: PAIN, MILD 1-3 Last Admin: 08/10/17 22:59 Dose: 650 mg Acetaminophen (Tylenol 325mg Tab) 650 mg PO ONCE PRN PRN Reason: Pain, moderate (4-7) Last Admin: 08/09/17 02:47 Dose: 650 mg Allopurinol (Zyloprim) 100 mg PO DAILY [facility] Last Admin: 08/11/17 11:00 Dose: 100 mg Aspirin (Aspirin Chewable) 81 mg PO DAILY [facility] Last Admin: 08/11/17 11:00 Dose: 81 mg Benzonatate (Tessalon Perles) 100 mg PO TID PRN PRN Reason: Cough [facility]lo) [facility] Last Admin: 08/11/17 08:30 Dose: 667 mg Docusate Sodium (Colace) 100 mg PO BID [facility] Last Admin: 08/11/17 11:00 Dose: 100 mg Ferrous Sulfate (Feosol) 325 mg PO DAILY [facility] Last Admin: 08/11/17 11:00 Dose: 325 mg Folic Acid (Folic Acid) 1 mg PO DAILY [facility] Last Admin: 08/11/17 11:00 Dose: 1 mg Insulin Human Regular (Novolin R) 0 unit SC ACHS [facility] PRN Reason: Protocol Last Admin: 08/11/17 12:58 Dose: Not Given Metolazone (Zaroxolyn) 2.5 mg PO DAILY [facility] Last Admin: 08/11/17 11:00 Dose: 2.5 mg Metoprolol Succinate (Toprol Xl) 50 mg PO DAILY [facility] Last Admin: 08/11/17 11:00 Dose: 50 mg Polyethylene Glycol (Miralax) 17 gm PO BID [facility] Last Admin: 08/11/17 11:00 Dose: 17 gm Rivaroxaban (Xarelto) 10 mg PO DAILY [facility] Rosuvastatin Calcium (Crestor) 20 mg PO HS [facility] Last Admin: 08/10/17 21:32 Dose: 20 mg Spironolactone (Aldactone) 25 mg PO BID [facility] Last Admin: 08/11/17 11:00 Dose: 25 mg Tamsulosin HCl (Flomax) 0.4 mg PO DAILY [facility] Last Admin: 08/11/17 11:00 Dose: 0.4 mg Vitamin B Complex/Vit C/Folic Acid (Nephro-Victor Hugo) 1 tab PO DAILY [facility] Last Admin: 08/11/17 11:00 Dose: 1 tab - Labs Labs: 08/11/17 06:15 08/11/17 06:15 PT 13.4 SECONDS (9.7-12.2) H 08/05/17 15:08 INR 1.2 08/05/17 15:08 APTT 32 SECONDS (21-34) 08/05/17 15:08 - Constitutional Appears: No Acute Distress, Chronically Ill - Head Exam Head Exam: NORMAL INSPECTION, NORMOCEPHALIC - Eye Exam Eye Exam: Normal appearance, PERRL Pupil Exam: PERRL - ENT Exam ENT Exam: Mucous Membranes Moist, Normal Exam - Neck Exam Neck Exam: Full ROM, Normal Inspection - Respiratory Exam Respiratory Exam: Decreased Breath Sounds, NORMAL BREATHING PATTERN - Cardiovascular Exam Cardiovascular Exam: REGULAR RHYTHM, RRR - GI/Abdominal Exam GI & Abdominal Exam: Distended, Soft - Extremities Exam Extremities Exam: Normal Inspection, Pedal Edema (R>L) - Back Exam Back Exam: NORMAL INSPECTION - Neurological Exam Neurological Exam: Alert, Awake, Oriented x3 - Psychiatric Exam Psychiatric exam: Normal Affect, Normal Mood - Skin Skin Exam: Normal Color, Warm Assessment and Plan (1) [id number] kidney injury Status: Acute (2) Anemia Status: Acute (3) CKD stage 3 due to type 2 diabetes mellitus Status: Acute (4) Hypertension Status: Acute (5) Leg edema Status: Acute (6) CHF (congestive heart failure) Status: Chronic (7) CAD (coronary artery disease) Status: Acute - Assessment and Plan (Free Text) Assessment: switch to po lasix potassium supplemented follow up outpt
--- NOTE | 2017-08-11 16:45 | CP.PCM.DIS ---
Provider - Provider Date of Admission: 08/05/17 17:01 Attending physician: Jose J Eason Jr, MD Time Spent in preparation of Discharge (in minutes): 40 Hospital Course - Lab Results Lab Results: Most Recent Lab Values WBC 7.8 K/uL (4.8-10.8) 08/11/17 06:15 RBC 3.28 Mil/uL (4.40-5.90) L 08/11/17 06:15 Hgb 10.2 g/dL (12.0-18.0) L 08/11/17 06:15 Hct 30.5 % (35.0-51.0) L 08/11/17 06:15 MCV 93.0 fL (80.0-94.0) 08/11/17 06:15 MCH 31.2 pg (27.0-31.0) H 08/11/17 06:15 MCHC 33.5 g/dL (33.0-37.0) 08/11/17 06:15 RDW 15.9 % (11.5-14.5) H 08/11/17 06:15 Plt Count 289 K/uL (130-400) 08/11/17 06:15 MPV 8.1 fL (7.2-11.7) 08/11/17 06:15 Neut % (Auto) 64.8 % (50.0-75.0) 08/11/17 06:15 Lymph % (Auto) 23.7 % (20.0-40.0) 08/11/17 06:15 Walsh % (Auto) 7.9 % (0.0-10.0) 08/11/17 06:15 Eos % (Auto) 2.5 % (0.0-4.0) 08/11/17 06:15 Baso % (Auto) 1.1 % (0.0-2.0) 08/11/17 06:15 Neut # (Auto) 5.1 K/uL (1.8-7.0) 08/11/17 06:15 Lymph # (Auto) 1.9 K/uL (1.0-4.3) 08/11/17 06:15 Walsh # (Auto) 0.6 K/uL (0.0-0.8) 08/11/17 06:15 Eos # (Auto) 0.2 K/uL (0.0-0.7) 08/11/17 06:15 Baso # (Auto) 0.1 K/uL (0.0-0.2) 08/11/17 06:15 PT 13.4 SECONDS (9.7-12.2) H 08/05/17 15:08 INR 1.2 08/05/17 15:08 APTT 32 SECONDS (21-34) 08/05/17 15:08 Sodium 141 mmol/L (132-148) 08/11/17 06:15 Potassium 3.0 mmol/L (3.6-5.2) L 08/11/17 06:15 Chloride 93 mmol/L (98-107) L 08/11/17 06:15 Carbon Dioxide 28 mmol/L (22-30) 08/11/17 06:15 Anion Gap 23 (10-20) H 08/11/17 06:15 BUN 62 mg/dL (9-20) H 08/11/17 06:15 Creatinine 2.6 mg/dL (0.8-1.5) H 08/11/17 06:15 Est GFR ( Amer) 30 08/11/17 06:15 Est GFR (Non-Af Amer) 24 08/11/17 06:15 POC Glucose (mg/dL) 163 mg/dL (65-110) H 08/11/17 11:35 Random Glucose 164 mg/dL (75-110) H 08/11/17 06:15 Calcium 10.0 mg/dl (8.6-10.4) 08/11/17 06:15 Phosphorus 5.3 mg/dL (2.5-4.5) H 08/11/17 06:15 Magnesium 2.5 mg/dL (1.6-2.3) H 08/11/17 06:15 Total Bilirubin 0.6 mg/dL (0.2-1.3) 08/11/17 06:15 AST 52 U/L (17-59) 08/11/17 06:15 ALT 62 U/L (21-72) 08/11/17 06:15 Alkaline Phosphatase 211 U/L (38-126) H 08/11/17 06:15 Total Creatine Kinase < 20 U/L (55-170) L 08/06/17 02:55 CK-MB (Mass) 0.25 ng/mL (0.0-3.38) 08/06/17 02:55 Troponin I 0.0230 ng/mL (0.00-0.120) 08/06/17 16:42 NT-Pro-B Natriuret Pep 4350 pg/mL (0-900) H 08/05/17 15:08 Total Protein 8.0 g/dL (6.3-8.3) 08/11/17 06:15 Albumin 4.2 g/dL (3.5-5.0) 08/11/17 06:15 Globulin 3.7 gm/dL (2.2-3.9) 08/11/17 06:15 Albumin/Globulin Ratio 1.1 (1.0-2.1) 08/11/17 06:15 PTH Intact Whole Molec 75 pg/mL (14-64) H 08/07/17 07:18 Urine Color Colorless (YELLOW) 08/06/17 12:54 Urine Clarity Clear (Clear) 08/06/17 12:54 Urine pH 7.0 (5.0-8.0) 08/06/17 12:54 Ur Specific [place] 1.005 (1.003-1.030) 08/06/17 12:54 Urine Protein Negative mg/dL (NEGATIVE) 08/06/17 12:54 Urine Glucose (UA) Normal mg/dL (Normal) 08/06/17 12:54 Urine Ketones Negative mg/dL (NEGATIVE) 08/06/17 12:54 Urine Blood Negative (NEGATIVE) 08/06/17 12:54 Urine Nitrate Negative (NEGATIVE) 08/06/17 12:54 Urine Bilirubin Negative (NEGATIVE) 08/06/17 12:54 Urine Urobilinogen Normal mg/dL (0.2-1.0) 08/06/17 12:54 Ur Leukocyte Esterase Neg Twan/uL (Negative) 08/06/17 12:54 Urine WBC (Auto) < 1 /hpf (0-5) 08/06/17 12:54 Urine RBC (Auto) < 1 /hpf (0-3) 08/06/17 12:54 Ur Squamous Epith Cells < 1 /hpf (0-5) 08/06/17 12:54 Ur Random Sodium 134 mmol/L 08/06/17 12:54 Urine Collection Time 24 HRS 08/07/17 13:40 Urine Total Volume 4300 mL 08/07/17 13:40 Ur Protein 24 Hr Calc 516.0 mg/24hr (42-225) H 08/07/17 13:40 - Hospital Course Hospital Course: Patient is a 72 year old male with a past medical history of CAD s/p CABG ( July 23 2017), HTN, DM II, CKD stage III, and chronic right knee pain awaiting replacement, presents to the ED by Dr. Smith's request for worsening lower extremity edema and tenderness. Patient says this started about a week ag oand has progressively worsened to the point where he feels like his right leg is going to "burst". Patient says he is having swelling in both legs but only the right is tender (10/10 only when touched) and it feels more swollen to him. He also complains of lightheadedness that started last week during his physical therapy during his sit-stand exercises, however, this has actually improved since it started. Patient also admits to some diarrhea that he calls "self induced" from taking piyush softeners to help with the constipation caused by his percocet. Patient denies any fever, chills, changes in vision/hearing, headache, nasal congestion, cough, difficulty swallowing, chest pain, SOB, palpitations, abdominal pain, nausea, vomiting, and dysuria. Of note, venous duplex of the lower extremities were done in the ED and found to be negative. Inside Trucker: Dr. Smith Senior Marketing Engineer: Dr. Cintron (seen by Dr. Mcmullen here on last admission) PMH: Triple vessel CAD s/p CABG (July 23 2017), HTN, DM II, CKD stage III, and chronic right knee pain awaiting replacement PSH: CABG Allergies: NKDA FH: Mother from CHF and also had DM; father with CHF; grandfather with prostate cancer SH: former smoker (last cigarette August 07, 1974), denies alcohol or drug use Hospital Course: Patient was sent to the ED by Dr. Smith for worsening lower extremity edema and tenderness secondary to CHF exacerbation. LE dopplers were negative for DVT. ECHO (08/05/17) showed EF 63%, mild-moderate TR. ProBNP on admission 4350; Trop negative x4. Inside Trucker Dr. Smith, Pulmonology Dr. Carrero, and Nephrology Dr. Mcmullen were the specialists that were consulted. Patient was started on Lasix 40mg IV BID, urine and weight were monitored. Patient's home medications were restarted during his hospital stay. Patient's LE edema significantly during his hospital stay and today and patient states he is feeling much better. Patient's Lasix was changed from Lasix IV to home medication Lasix 40mg po daily. Patient states he is moving well out of bed to chair but would like to return to rehab to continue with physical therapy daily. Patient denies chest pain, shortness of breath, palpitations, nausea, vomiting, diarrhea or constipation. Patient stable for discharge to [facility]. Patient to continue home medications. Any changes to medications please contact patient's PMD Dr. Eason # Please return to the emergency room if symptoms return or worsen. This is a summary of patient's hospitalization, please review EMR for further details. Discharge Exam - Head Exam Head Exam: NORMAL INSPECTION, NORMOCEPHALIC - Eye Exam Eye Exam: EOMI, Normal appearance - ENT Exam ENT Exam: Mucous Membranes Moist - Respiratory Exam Respiratory Exam: Clear to PA & Lateral, NORMAL BREATHING PATTERN - Cardiovascular Exam Cardiovascular Exam: REGULAR RHYTHM, +S1, +S2 - GI/Abdominal Exam GI & Abdominal Exam: Normal Bowel Sounds, Soft. absent: Tenderness Additional comments: obese abdomen - Extremities Exam Extremities exam: normal inspection - Neurological Exam Neurological exam: Alert, Oriented x3 - Psychiatric Exam Psychiatric exam: Normal Affect, Normal Mood - Skin Skin Exam: Dry, Intact, Normal Color, Warm Discharge Plan - Follow Up Plan Condition: STABLE Disposition: REHAB FACILITY/REHAB UNIT
[2017-08-11 17:09] VITALS: BP 117/78; PULSE 78; TEMP 97.9
--- NOTE | 2017-08-12 13:37 | PQF CHF ---
To Jose J Eason MD Patient is a 73 yr old with a past History of CAD. S/P CABG, HTN/CHF/CKD stage 111; DM 2. Presented to ED per Dr. Burrell request for worsening lower exremity edema and tenderness. Diagnosed with Acute Exacerbation. of CHF Please specify the type of CHF Systolic/Diastolic/ Combined Systolic and Diastolic. Thank you, This form is a permanent part of the medical record Clarification of your documentation is requested to better reflect the severity of illness and intensity of treatment of your patient. Indicators present [X] Diagnosis of CHF and/or history of CHF [X] BNP > 200 4350 H [] Imaging Finding of Pulmonary Edema /Pleural Effusions [] Fluid/Volume Overload [X] Pitting edema [] Ejection Fraction < 40% (Indicative of Systolic Heart Failure) [] Ejection Fraction > 40% (Indicative of Diastolic Heart Failure) [] Dyspnea / Orthopenea / Paroxysmal Nocturnal Dyspnea [] Other: Location in the medical record that reflects the above clinical findings: [] Treatment Provided: [] PHYSICIAN'S RESPONSE Based on your medical judgment of the clinical indicators outlined above, are you treating this patient for a known or suspected: [] Acute CHF [] Systolic [] Diastolic [] Combined [] Chronic CHF [] Systolic [] Diastolic [] Combined [] Acute on Chronic CHF []Systolic [] Diastolic [] Combined [] CHF due hypertension [] Acute systolic []Chronic systolic [] Acute/ chronic systolic [] Other, please indicate: [] [] If Unable to Determine, please check the box, sign and date. Present On Admission (POA) Indicator: [] Present at the time of admission [] Not present at the time of admission [] Clinically Undetermined In responding to this query, please exercise your independent professional judgment. The fact that a question is asked does not imply that any particular answer is desired or expected. Thank you for your clarification on this documentation. If you have any questions please call:[ ] * Thank you, [Alicia Delgadillo, [facility] ] metal painter DAVID
== END 2017-08-11 22:17 | DRG 291 ==
LOC: C.ER 13:56 → C.9E 17:01 → C.6T 17:19
PROVIDERS: ADMIT Internal Medicine; ATTEND Internal Medicine
DX: I13.0 Hypertensive heart and chronic kidney disease with heart failure and stage 1 through stage 4 chronic kidney disease, or unspecified chronic kidney disease (principal); I50.33 Acute on chronic diastolic (congestive) heart failure; N17.9 Acute kidney failure, unspecified; E11.22 Type 2 diabetes mellitus with diabetic chronic kidney disease; N18.3 Chronic kidney disease, stage 3 (moderate); M10.9 Gout, unspecified; I25.10 Atherosclerotic heart disease of native coronary artery without angina pectoris; Z95.1 Presence of aortocoronary bypass graft; Z87.891 Personal history of nicotine dependence; K59.03 Drug induced constipation; T39.1X5A Adverse effect of 4-Aminophenol derivatives, initial encounter; D53.9 Nutritional anemia, unspecified; R26.81 Unsteadiness on feet; E11.21 Type 2 diabetes mellitus with diabetic nephropathy

== ENCOUNTER 2018-01-13 09:50 | Day surgery (SDC) | payer MEDICARE, OTHER ==
[2018-01-12 14:38] VITALS: BMI 35.6
[2018-01-13] MEDS ORDERED: Lactated Ringer's 500 ML IV ONE (11:04)
[2018-01-13] MEDS ORDERED: Propofol 10 mg/ml Inj (20 ML) ONE ×3 (11:50→12:10)
[2018-01-13 13:18] VITALS: TEMP 97
[2018-01-13 13:59] VITALS: BP 142/72; PULSE 52; RESP 13; O2SAT 98
== END 2018-01-13 13:50 | disposition home or self-care (01) ==
LOC: C.ENDO 09:50
PROVIDERS: ATTEND Internal Medicine Gastroenterology
DX: Z12.11 Encounter for screening for malignant neoplasm of colon (principal); K57.30 Diverticulosis of large intestine without perforation or abscess without bleeding; K64.2 Third degree hemorrhoids; K59.00 Constipation, unspecified; I25.10 Atherosclerotic heart disease of native coronary artery without angina pectoris; Z95.1 Presence of aortocoronary bypass graft; E11.22 Type 2 diabetes mellitus with diabetic chronic kidney disease; I13.0 Hypertensive heart and chronic kidney disease with heart failure and stage 1 through stage 4 chronic kidney disease, or unspecified chronic kidney disease; N18.9 Chronic kidney disease, unspecified; I50.9 Heart failure, unspecified; E78.5 Hyperlipidemia, unspecified; M10.9 Gout, unspecified; Z87.11 Personal history of peptic ulcer disease; Z87.19 Personal history of other diseases of the digestive system; Z90.49 Acquired absence of other specified parts of digestive tract; Z79.82 Long term (current) use of aspirin; Z79.84 Long term (current) use of oral hypoglycemic drugs; Z79.899 Other long term (current) drug therapy
CPT/HCPCS: 82948; G0121; J2001; J2704; J7120

== ENCOUNTER 2018-05-05 12:24 | Outpatient (CLI) | payer MEDICARE, OTHER | END 2018-05-05 12:25 | disposition home or self-care (01) | LOC: C.DIABED 12:24 | DX: E11.9 Type 2 diabetes mellitus without complications (principal) ==

== ENCOUNTER 2018-05-27 09:01 | Day surgery (SDC) | payer MEDICARE, OTHER ==
[2018-05-27 09:24] VITALS: BMI 35.2
[2018-05-27] MEDS ORDERED: Propofol 10 mg/ml Inj (20 ML) ONE (10:48)
[2018-05-27] MEDS ORDERED: Lactated Ringer's 1,000 ML IV ONE (11:55)
[2018-05-27 13:02] VITALS: BP 129/67
[2018-05-27 13:53] VITALS: PULSE 61; RESP 21; TEMP 97.1; O2SAT 99
== END 2018-05-27 13:45 | disposition home or self-care (01) ==
LOC: C.ENDO 09:01
PROVIDERS: ATTEND Internal Medicine Gastroenterology
DX: Z12.11 Encounter for screening for malignant neoplasm of colon (principal); K29.50 Unspecified chronic gastritis without bleeding; D50.9 Iron deficiency anemia, unspecified; K64.8 Other hemorrhoids; E11.9 Type 2 diabetes mellitus without complications
CPT/HCPCS: 43239; 45378; 82948; 88305; 88313; 88342; J2001; J2704; J7120

== ENCOUNTER 2018-06-02 12:16 | Outpatient (CLI) | payer MEDICARE, OTHER | END 2018-06-02 12:17 | disposition home or self-care (01) | LOC: C.DIABED 12:16 ==

== ENCOUNTER 2018-06-30 11:40 | Outpatient (CLI) | payer MEDICARE, OTHER | END 2018-06-30 11:41 | disposition home or self-care (01) | LOC: C.DIABED 11:40 ==

== ENCOUNTER 2018-08-31 12:37 | Outpatient (CLI) | payer MEDICARE | END 2018-08-31 12:38 | disposition home or self-care (01) | LOC: C.CTH 12:37 | DX: D64.9 Anemia, unspecified (principal); D69.9 Hemorrhagic condition, unspecified; D59.9 Acquired hemolytic anemia, unspecified ==